=== PATIENT | male | born 1950 | race Caucasian/White ===

== ENCOUNTER → 2016-11-06 | Outpatient (REF) | payer OTHER ==
[~2016-11-06] MED LIST: /ATOR40TA OR; /DOXA1TA OR; DOXAZOSIN PO; HYDR25TA6 OR; LATANOPROST 0.005% OU; LISI20TA5 OR; TIMOPTIC 0.5% OU; TIMOPTIC OU; VERA120T OR; XALATAN OU
[2016-11-06 18:33] LABS: ALBUMIN 4.1 GM/DL (3.2-5.2); ALBUMIN/GLOBULIN RATIO 1.24 (1.00-1.93); ALKALINE PHOSPHATASE 67 U/L (45-117); ALT/SGPT 53 U/L (12-78); ANION GAP 9 MEQ/L (8-16); AST/SGOT 24 U/L (15-37); BILIRUBIN,TOTAL 0.4 MG/DL (0.2-1.0); BLOOD UREA NITROGEN 22 MG/DL (7-18); CALCIUM LEVEL 8.8 MG/DL (8.8-10.2); CARBON DIOXIDE LEVEL 25 MEQ/L (21-32); CHLORIDE LEVEL 104 MEQ/L (98-107); CHOLESTEROL LEVEL 244 MG/DL (<200); CREATININE FOR GFR 0.73 MG/DL (0.70-1.30); GLOMERULAR FILTRATION RATE > 60.0 (>49); GLUCOSE, FASTING 171 MG/DL (80-110); POTASSIUM SERUM 4.6 MEQ/L (3.5-5.1); SODIUM LEVEL 138 MEQ/L (136-145); TOTAL PROTEIN 7.4 GM/DL (6.4-8.2); TRIGLYCERIDES LEVEL 386 MG/DL (<150)
== END ==
LOC: M SFHCCLAY 09:40
PROVIDERS: ATTEND Family Medicine
DX: E11.9 Type 2 diabetes mellitus without complications (principal); E78.2 Mixed hyperlipidemia

== ENCOUNTER → 2017-01-03 | Outpatient (REF) | payer OTHER | LOC: M LAB REF 09:26 | PROVIDERS: ATTEND Physician Assistant | DX: N39.0 Urinary tract infection, site not specified (principal) ==

== ENCOUNTER → 2017-02-11 | Outpatient (REF) | payer OTHER ==
[2017-02-11 17:54] LABS: ANION GAP 7 MEQ/L (8-16); BLOOD UREA NITROGEN 14 MG/DL (7-18); CALCIUM LEVEL 9.4 MG/DL (8.8-10.2); CARBON DIOXIDE LEVEL 27 MEQ/L (21-32); CHLORIDE LEVEL 106 MEQ/L (98-107); CREATININE FOR GFR 0.78 MG/DL (0.70-1.30); GLOMERULAR FILTRATION RATE > 60.0 (>49); GLUCOSE, FASTING 130 MG/DL (80-110); SODIUM LEVEL 140 MEQ/L (136-145)
== END ==
LOC: M SFHCCLAY 10:45
PROVIDERS: ATTEND Family Medicine
DX: E11.9 Type 2 diabetes mellitus without complications (principal)

== ENCOUNTER → 2017-03-28 | Outpatient (CLI) | payer MEDICARE, BC, OTHER ==
--- NOTE | 2017-03-28 11:05 | REP ---
ABDOMEN, FLAT AND UPRIGHT; PA CHEST, FOUR VIEWS: HISTORY: Left lower quadrant pain. A small amount of air is present in small and large intestine. There are no air fluid levels or dilated loops of intestine. There is no pneumoperitoneum. A mild amount of stool is present in the colon. The lungs are clear. IMPRESSION: 1. Nonspecific bowel gas pattern. 2. There is a mild amount of stool in the colon. Signed by Quinton Dhillon MD 03/28/2017 11:09 A
[2017-03-28 18:14] LABS: MICROSCOPIC INDICATED? MAN NO (NO)
[2017-03-28 18:15] LABS: BASO % 0.3 % (0.0-1.0); EOS # 0.1 10^3/uL (0.0-0.50); EOS % 1.4 % (0.0-3.0); IMMATURE GRANULOCYTE % 0.5 % (0-0); LYMPH # 2.7 10^3/uL (1.5-4.5); LYMPH % 35.4 % (24.0-44.0); MEAN CORPUSCULAR HEMOGLOBIN 31.1 pg (27.0-33.0); MEAN CORPUSCULAR HGB CONC 33.6 g/dl (32.0-36.5); MEAN CORPUSCULAR VOLUME 92.5 fl (80.0-96.0); MONO # 0.8 10^3/uL (0.0-0.8); MONO % 9.9 % (0.0-5.0); NEUTROPHILS % 52.5 % (36.0-66.0); PLATELET COUNT, AUTOMATED 166 10^3/uL (150-450); RED CELL DISTRIBUTION WIDTH 13.9 % (11.5-14.5); WHITE BLOOD COUNT 7.7 10^3/uL (4.0-10.0)
[2017-03-28 18:19] LABS: ADD MORPHOLOGY? NO
[2017-03-28 18:30] LABS: ALBUMIN 4.1 GM/DL (3.2-5.2); ALBUMIN/GLOBULIN RATIO 1.32 (1.00-1.93); ALKALINE PHOSPHATASE 62 U/L (45-117); ALT/SGPT 63 U/L (12-78); ANION GAP 7 MEQ/L (8-16); AST/SGOT 33 U/L (15-37); BILIRUBIN,TOTAL 0.3 MG/DL (0.2-1.0); BLOOD UREA NITROGEN 15 MG/DL (7-18); CALCIUM LEVEL 9.5 MG/DL (8.8-10.2); CARBON DIOXIDE LEVEL 27 MEQ/L (21-32); CHLORIDE LEVEL 103 MEQ/L (98-107); CREATININE FOR GFR 0.67 MG/DL (0.70-1.30); GLOMERULAR FILTRATION RATE > 60.0 (>49); GLUCOSE, FASTING 167 MG/DL (80-110); POTASSIUM SERUM 4.6 MEQ/L (3.5-5.1); SODIUM LEVEL 137 MEQ/L (136-145); TOTAL PROTEIN 7.2 GM/DL (6.4-8.2)
== END ==
LOC: M WUC 10:22
PROVIDERS: ATTEND Physician Assistant
DX: R10.32 Left lower quadrant pain (principal)

== ENCOUNTER → 2017-03-29 | Outpatient (CLI) | payer MEDICARE, BC, OTHER ==
[~2017-03-29] MED LIST changes: +GASTROGRAFIN SOLUTION 30ML (Q9963) As Ordered ONE; +ISOVUE-370 76% 100ML VIAL (Q9967) As Ordered ONE
--- NOTE | 2017-03-29 12:56 | REP ---
CT of the abdomen and pelvis with IV and bowel contrast: There are no comparisons. The visualized lung roque are unremarkable. The hepatic parenchyma is diffusely hypodense compatible with hepato steatosis but is otherwise unremarkable. The gallbladder, pancreas and spleen are unremarkable except for a calcified granuloma in the spleen. The adrenals and kidneys are unremarkable except for small adrenal cortical cysts. The abdominal aorta is unremarkable except for calcified atheroma. There is no bowel distension. Mesentery is unremarkable. Pelvis: There is no diverticulosis or diverticulitis. However, there is wall thickening of the sigmoid colon. This is nonspecific and could be artifact from under distension could be evidence for colitis in the appropriate clinical setting. There is no ascites or adenopathy. The appendix is unremarkable. The bladder is unremarkable. Impression: There is no diverticulosis or diverticulitis. However, there is wall thickening of the sigmoid colon, nonspecific: artifact from under distension versus colitis in the appropriate clinical setting. No ascites, adenopathy, bowel distension or obstruction. Signed by Amaury Gabriel MD 03/29/2017 12:48 P
== END ==
LOC: M RAD 10:59
PROVIDERS: ATTEND Physician Assistant
DX: R10.32 Left lower quadrant pain (principal)
CPT/HCPCS: 74177; Q9963; Q9967

== ENCOUNTER → 2017-05-17 | Outpatient (REF) | payer MEDICARE, OTHER ==
[~2017-05-17] MED LIST changes: -GASTROGRAFIN SOLUTION 30ML (Q9963) As Ordered ONE; -ISOVUE-370 76% 100ML VIAL (Q9967) As Ordered ONE
[2017-05-17 16:39] LABS: ANION GAP 7 MEQ/L (8-16); BLOOD UREA NITROGEN 19 MG/DL (7-18); CALCIUM LEVEL 9.5 MG/DL (8.8-10.2); CARBON DIOXIDE LEVEL 27 MEQ/L (21-32); CHLORIDE LEVEL 104 MEQ/L (98-107); CREATININE FOR GFR 0.73 MG/DL (0.70-1.30); GLOMERULAR FILTRATION RATE > 60.0 (>49); GLUCOSE, FASTING 182 MG/DL (80-110); POTASSIUM SERUM 4.5 MEQ/L (3.5-5.1); SODIUM LEVEL 138 MEQ/L (136-145)
== END ==
LOC: M SFHCCLAY 11:05
PROVIDERS: ATTEND Family Medicine
DX: E11.9 Type 2 diabetes mellitus without complications (principal); Z23 Encounter for immunization
CPT/HCPCS: 80048; 83036; 90662; 90670; G0008; G0009; G0463

== ENCOUNTER → 2017-06-24 | Outpatient (REF) | payer MEDICARE, OTHER ==
[2017-06-24 18:32] LABS: ANION GAP 8 MEQ/L (8-16); BLOOD UREA NITROGEN 17 MG/DL (7-18); CALCIUM LEVEL 8.7 MG/DL (8.8-10.2); CARBON DIOXIDE LEVEL 25 MEQ/L (21-32); CHLORIDE LEVEL 106 MEQ/L (98-107); CREATININE FOR GFR 0.75 MG/DL (0.70-1.30); GLOMERULAR FILTRATION RATE > 60.0 (>49); GLUCOSE, FASTING 195 MG/DL (80-110); POTASSIUM SERUM 4.8 MEQ/L (3.5-5.1); SODIUM LEVEL 139 MEQ/L (136-145)
== END ==
LOC: M SFHCCLAY 11:04
DX: I10 Essential (primary) hypertension (principal)

== ENCOUNTER → 2017-06-24 | Outpatient (REF) | payer MEDICARE, OTHER ==
[2017-06-24 18:37] LABS: ESTIMATED AVERAGE GLUCOSE 186 MG/DL (60-110)
== END ==
LOC: M LABDRAWC 17:29
DX: M19.071 Primary osteoarthritis, right ankle and foot (principal); I10 Essential (primary) hypertension; Z79.899 Other long term (current) drug therapy
CPT/HCPCS: 83036

== ENCOUNTER → 2017-07-13 | Outpatient (REF) | payer MEDICARE, OTHER ==
[2017-07-13 13:28] LABS: ESTIMATED AVERAGE GLUCOSE 180 MG/DL (60-110); HEMOGLOBIN A1c 7.9 %
== END ==
LOC: M LABDRAW1 10:39
DX: M19.071 Primary osteoarthritis, right ankle and foot (principal); E11.9 Type 2 diabetes mellitus without complications
CPT/HCPCS: 83036

== ENCOUNTER → 2017-08-20 | Outpatient (REF) | payer MEDICARE, OTHER ==
[2017-08-20 17:05] LABS: ANION GAP 9 MEQ/L (8-16); BLOOD UREA NITROGEN 15 MG/DL (7-18); CALCIUM LEVEL 9.6 MG/DL (8.8-10.2); CARBON DIOXIDE LEVEL 27 MEQ/L (21-32); CHLORIDE LEVEL 104 MEQ/L (98-107); CREATININE FOR GFR 0.75 MG/DL (0.70-1.30); GLOMERULAR FILTRATION RATE > 60.0 (>49); GLUCOSE, FASTING 112 MG/DL (70-100); POTASSIUM SERUM 4.8 MEQ/L (3.5-5.1); SODIUM LEVEL 140 MEQ/L (136-145)
[2017-08-20 17:19] LABS: ESTIMATED AVERAGE GLUCOSE 160 MG/DL (60-110); HEMOGLOBIN A1c 7.2 %
== END ==
LOC: M SFHCCLAY 10:48
DX: E11.9 Type 2 diabetes mellitus without complications (principal)
CPT/HCPCS: 83036

== ENCOUNTER → 2017-11-18 | Outpatient (REF) | payer MEDICARE, OTHER ==
[2017-11-18 12:31] LABS: ALBUMIN 4.1 GM/DL (3.2-5.2); ALBUMIN/GLOBULIN RATIO 1.21 (1.00-1.93); ALKALINE PHOSPHATASE 73 U/L (45-117); ALT/SGPT 79 U/L (12-78); ANION GAP 8 MEQ/L (8-16); AST/SGOT 36 U/L (7-37); BILIRUBIN,TOTAL 0.3 MG/DL (0.2-1.0); BLOOD UREA NITROGEN 13 MG/DL (7-18); CALCIUM LEVEL 9.5 MG/DL (8.8-10.2); CARBON DIOXIDE LEVEL 27 MEQ/L (21-32); CHLORIDE LEVEL 107 MEQ/L (98-107); CHOLESTEROL LEVEL 203 MG/DL (<200); CHOLESTEROL RISK RATIO 4.319 (<5); CREATININE FOR GFR 0.74 MG/DL (0.70-1.30); GLOMERULAR FILTRATION RATE > 60.0 (>49); GLUCOSE, FASTING 102 MG/DL (70-100); HDL CHOLESTEROL 47 MG/DL (>40); NON-HDL-C 156 MG/DL; SODIUM LEVEL 142 MEQ/L (136-145); TOTAL PROTEIN 7.5 GM/DL (6.4-8.2); TRIGLYCERIDES LEVEL 521 MG/DL (<150)
[2017-11-18 12:41] LABS: CREATININE, URINE 96.3 MG/DL; MALB URINE SIEMENS 86.3 MG/L; MAU/CREAT RATIO 89.6 MCG/MG (0.0-30.0)
[2017-11-18 12:43] LABS: POTASSIUM SERUM 5.2 MEQ/L (3.5-5.1)
[2017-11-18 13:06] LABS: ESTIMATED AVERAGE GLUCOSE 137 MG/DL (60-110); HEMOGLOBIN A1c 6.4 %
== END ==
LOC: M SFHCCLAY 09:43
DX: E11.9 Type 2 diabetes mellitus without complications (principal); E78.2 Mixed hyperlipidemia
CPT/HCPCS: 80053

== ENCOUNTER → 2018-03-03 | Outpatient (REF) | payer MEDICARE, OTHER ==
[2018-03-03 17:50] LABS: ANION GAP 10 MEQ/L (8-16); BLOOD UREA NITROGEN 12 MG/DL (7-18); CALCIUM LEVEL 9.3 MG/DL (8.8-10.2); CARBON DIOXIDE LEVEL 23 MEQ/L (21-32); CHLORIDE LEVEL 110 MEQ/L (98-107); CREATININE FOR GFR 0.76 MG/DL (0.70-1.30); GLOMERULAR FILTRATION RATE > 60.0 (>49); GLUCOSE, FASTING 99 MG/DL (70-100); POTASSIUM SERUM 4.4 MEQ/L (3.5-5.1); SODIUM LEVEL 143 MEQ/L (136-145)
[2018-03-03 17:51] LABS: ESTIMATED AVERAGE GLUCOSE 108 MG/DL (60-110); HEMOGLOBIN A1c 5.4 %
== END ==
LOC: M SFHCCLAY 10:42
DX: E11.29 Type 2 diabetes mellitus with other diabetic kidney complication (principal); R80.9 Proteinuria, unspecified
CPT/HCPCS: 83036

== ENCOUNTER → 2018-03-22 | Outpatient (CLI) | payer BC, MEDICARE, OTHER ==
[2018-03-22 10:10] LABS: HEMATOCRIT 45.6 % (42.0-52.0); HEMOGLOBIN 15.8 g/dl (13.5-17.5); MEAN CORPUSCULAR HEMOGLOBIN 31.6 pg (27.0-33.0); MEAN CORPUSCULAR HGB CONC 34.6 g/dl (32.0-36.5); MEAN CORPUSCULAR VOLUME 91.2 fl (80.0-96.0); PLATELET COUNT, AUTOMATED 170 10^3/uL (150-450); RED CELL DISTRIBUTION WIDTH 13.6 % (11.5-14.5); WHITE BLOOD COUNT 7.6 10^3/uL (4.0-10.0)
[2018-03-22 10:20] LABS: INR 0.91; PROTHROMBIN TIME 12.4 SECONDS (12.1-14.4)
[2018-03-22 10:45] LABS: ALBUMIN 3.9 GM/DL (3.2-5.2); ALBUMIN/GLOBULIN RATIO 1.26 (1.00-1.93); ALKALINE PHOSPHATASE 52 U/L (45-117); ALT/SGPT 36 U/L (12-78); ANION GAP 9 MEQ/L (8-16); AST/SGOT 19 U/L (7-37); BILIRUBIN,TOTAL 0.3 MG/DL (0.2-1.0); BLOOD UREA NITROGEN 17 MG/DL (7-18); CALCIUM LEVEL 9.4 MG/DL (8.8-10.2); CARBON DIOXIDE LEVEL 24 MEQ/L (21-32); CHLORIDE LEVEL 109 MEQ/L (98-107); CREATININE FOR GFR 0.65 MG/DL (0.70-1.30); GLOMERULAR FILTRATION RATE > 60.0 (>49); GLUCOSE, FASTING 115 MG/DL (70-100); POTASSIUM SERUM 4.8 MEQ/L (3.5-5.1); SODIUM LEVEL 142 MEQ/L (136-145)
[2018-03-22 10:50] LABS: ERYTHROCYTE SEDIMENTATION RATE 13 mm/hr (0-20)
== END ==
LOC: M LAB 09:33
DX: Z01.818 Encounter for other preprocedural examination (principal); M19.071 Primary osteoarthritis, right ankle and foot; I10 Essential (primary) hypertension; E11.9 Type 2 diabetes mellitus without complications; I42.9 Cardiomyopathy, unspecified
CPT/HCPCS: 71046

== ENCOUNTER 2018-03-28 05:41 | Inpatient (IN) | payer MEDICARE, BC, OTHER ==
[2018-03-28 06:21] LABS: GLUCOSE, FASTING 145 MG/DL (70-100)
[2018-03-28] MEDS: LR 1,000 ML IV ×3 (06:30→15:15)
[2018-03-28] MEDS ORDERED: fentaNYL 100 MCG/2 ML INJECTION (J3010) As Ordered ×3 (07:00→12:42)
[2018-03-28] MEDS ORDERED: MIDAZOLAM INJ 2 MG/2 ML VIAL (J2250) As Ordered ×2 (07:00→07:19)
[2018-03-28] MEDS ORDERED: ROCURONIUM BROMIDE 50 MG/5 ML VIAL As Ordered ×2 (07:17→08:17)
[2018-03-28] MEDS ORDERED: LIDOCAINE 2% INJ 100 MG/5 ML SDV (FOR ANES.) As Ordered (07:17)
[2018-03-28] MEDS ORDERED: PROPOFOL 200 MG/20 ML VIAL As Ordered (07:17)
[2018-03-28] MEDS ORDERED: fentaNYL 250 MCG/5 ML INJECTION (J3010) As Ordered (07:18)
[2018-03-28] MEDS: MIDAZOLAM INJ 2 MG/2 ML VIAL (J2250) IV (07:20)
[2018-03-28] MEDS: fentaNYL 100 MCG/2 ML INJECTION (J3010) IV (07:20)
[2018-03-28] MEDS ORDERED: PHENYLephrine HCL 500 MCG/5 ML (100MCG/ML) SYRINGE (J2370) As Ordered ×2 (08:25→08:35)
[2018-03-28] MEDS ORDERED: ePHEDrine SULFATE 25 MG/5 ML(5MG/ML) SYRINGE As Ordered (08:25)
[2018-03-28] MEDS ORDERED: PHENYLEPHRINE INJ 10MG/ML VIAL (J2370) As Ordered (09:23)
[2018-03-28] MEDS ORDERED: GLYCOPYRROLATE INJ 0.2 MG/ML 2 ML VIAL As Ordered (11:29)
[2018-03-28] MEDS ORDERED: NEOSTIGMINE 10 MG/10 ML VIAL (J2710) As Ordered (11:29)
[2018-03-28] MEDS ORDERED: ONDANSETRON 4MG/2ML VIAL (J2405) As Ordered (11:30)
[2018-03-28] MEDS ORDERED: METOCLOPRAMIDE INJ 10MG/2ML VIAL (J2765) As Ordered (11:30)
[2018-03-28] MEDS ORDERED: KETOROLAC 60 MG/2 ML VIAL (J1885) As Ordered (11:30)
[2018-03-28] MEDS: ceFAZolin 2 GM/D5W 50 ML IV BAG (J0690 PER 500MG) As Ordered (12:30)
[2018-03-28] MEDS ORDERED: NORCO, ANEXSIA 5/325MG TABLET (HYDROcodone/ACETAMINOPHEN) As Ordered (14:42)
[2018-03-28] MEDS: NORCO, ANEXSIA 5/325MG TABLET (HYDROcodone/ACETAMINOPHEN) PO (14:45)
[2018-03-28] MEDS ORDERED: oxyCODONE 5MG TAB PO (15:00)
[2018-03-28] MEDS ORDERED: FLEET ENEMA PR (15:00)
[2018-03-28] MEDS ORDERED: ONDANSETRON 4MG/2ML VIAL (J2405) IV (15:00)
[2018-03-28] MEDS ORDERED: fentaNYL 100 MCG/2 ML INJECTION (J3010) IV (15:00)
[2018-03-28] MEDS ORDERED: GLUCAGON FOR INJ 1 MG VIAL (J1610) SC (15:30)
[2018-03-28] MEDS ORDERED: GLUCOSE 4 GM CHEW TABLET PO (15:30)
[2018-03-28] MEDS ORDERED: DEXTROSE 50% 50 ML SYRINGE IV (15:30)
[2018-03-28] MEDS: HumaLOG INSULIN (NovoLOG) PER UNIT SC (17:30)
[2018-03-28] MEDS: oxyCODONE 5MG TAB PO ×2 (18:00→22:49)
[2018-03-28] MEDS: CHLORASEPTIC SPRAY MT (18:40)
[2018-03-28] MEDS: ATORVASTATIN 20 MG TAB PO (21:44)
[2018-03-28] MEDS: ACETAMINOPHEN 500 MG TAB PO (21:45)
[2018-03-28] MEDS: SENOKOT S TAB PO (21:46)
[2018-03-28] MEDS: LATANOPROST 0.005% OPHTH SOLN 2.5 ML OU (21:46)
[2018-03-28] MEDS: VERAPAMIL 120 MG SR TAB PO (21:46)
[2018-03-29] MEDS: LR 1,000 ML IV ×2 (01:15→11:15)
[2018-03-29 02:45] LABS: BEDSIDE GLUCOSE 104 MG/DL (80-115)
[2018-03-29 02:45] LABS: BEDSIDE GLUCOSE 114 MG/DL (80-115)
[2018-03-29] MEDS: ACETAMINOPHEN 500 MG TAB PO ×3 (05:08→21:35)
[2018-03-29] MEDS: oxyCODONE 5MG TAB PO ×4 (05:09→21:37)
[2018-03-29 07:04] LABS: HEMATOCRIT 39.1 % (42.0-52.0); HEMOGLOBIN 13.4 g/dl (13.5-17.5); MEAN CORPUSCULAR HEMOGLOBIN 31.3 pg (27.0-33.0); MEAN CORPUSCULAR HGB CONC 34.3 g/dl (32.0-36.5); MEAN CORPUSCULAR VOLUME 91.4 fl (80.0-96.0); PLATELET COUNT, AUTOMATED 151 10^3/uL (150-450); RED BLOOD COUNT 4.28 10^6/uL (4.30-6.10); RED CELL DISTRIBUTION WIDTH 13.5 % (11.5-14.5); WHITE BLOOD COUNT 12.3 10^3/uL (4.0-10.0)
[2018-03-29 07:23] LABS: ANION GAP 8 MEQ/L (8-16); BLOOD UREA NITROGEN 19 MG/DL (7-18); CALCIUM LEVEL 8.4 MG/DL (8.8-10.2); CARBON DIOXIDE LEVEL 23 MEQ/L (21-32); CHLORIDE LEVEL 106 MEQ/L (98-107); CREATININE FOR GFR 0.96 MG/DL (0.70-1.30); GLOMERULAR FILTRATION RATE > 60.0 (>49); GLUCOSE, FASTING 132 MG/DL (70-100); MAGNESIUM LEVEL 1.6 MG/DL (1.8-2.4); POTASSIUM SERUM 4.4 MEQ/L (3.5-5.1); SODIUM LEVEL 137 MEQ/L (136-145)
[2018-03-29] MEDS: HumaLOG INSULIN (NovoLOG) PER UNIT SC ×3 (07:30→17:08)
[2018-03-29] MEDS: VERAPAMIL 120 MG SR TAB PO ×2 (08:26→21:36)
[2018-03-29] MEDS: TIMOLOL MALEATE 0.5% OPHTH SOLN 5 ML OU (08:27)
[2018-03-29] MEDS: LORATADINE 10 MG TAB PO (08:27)
[2018-03-29] MEDS: diphenhydrAMINE 25 MG CAP PO (08:28)
[2018-03-29] MEDS: SENOKOT S TAB PO ×2 (08:28→21:35)
[2018-03-29 12:02] LABS: BEDSIDE GLUCOSE 143 MG/DL (80-115)
[2018-03-29] MEDS: RIVAROXABAN 10 MG TAB (XARELTO) PO (17:09)
[2018-03-29] MEDS: ATORVASTATIN 20 MG TAB PO (21:36)
[2018-03-29] MEDS: LATANOPROST 0.005% OPHTH SOLN 2.5 ML OU (21:36)
[2018-03-29] MEDS: MORPHINE 4 MG/ML 1ML VIAL/SYRINGE (J2270) IV (23:53)
[2018-03-30] MEDS: oxyCODONE 5MG TAB PO ×5 (02:07→21:15)
[2018-03-30 03:08] LABS: BEDSIDE GLUCOSE 125 MG/DL (80-115)
[2018-03-30] MEDS: ACETAMINOPHEN 500 MG TAB PO ×3 (05:25→21:16)
[2018-03-30 06:01] LABS: HEMATOCRIT 40.5 % (42.0-52.0); HEMOGLOBIN 13.7 g/dl (13.5-17.5); MEAN CORPUSCULAR HGB CONC 33.8 g/dl (32.0-36.5); MEAN CORPUSCULAR VOLUME 91.6 fl (80.0-96.0); PLATELET COUNT, AUTOMATED 147 10^3/uL (150-450); RED BLOOD COUNT 4.42 10^6/uL (4.30-6.10); RED CELL DISTRIBUTION WIDTH 13.2 % (11.5-14.5); WHITE BLOOD COUNT 11.3 10^3/uL (4.0-10.0)
[2018-03-30 06:27] LABS: ANION GAP 8 MEQ/L (8-16); BLOOD UREA NITROGEN 13 MG/DL (7-18); CALCIUM LEVEL 8.9 MG/DL (8.8-10.2); CARBON DIOXIDE LEVEL 26 MEQ/L (21-32); CHLORIDE LEVEL 105 MEQ/L (98-107); CREATININE FOR GFR 0.75 MG/DL (0.70-1.30); GLOMERULAR FILTRATION RATE > 60.0 (>49); GLUCOSE, FASTING 147 MG/DL (70-100); MAGNESIUM LEVEL 1.8 MG/DL (1.8-2.4); POTASSIUM SERUM 4.1 MEQ/L (3.5-5.1); SODIUM LEVEL 139 MEQ/L (136-145)
[2018-03-30] MEDS: HumaLOG INSULIN (NovoLOG) PER UNIT SC ×3 (07:30→17:30)
[2018-03-30] MEDS ORDERED: oxyCODONE 5MG TAB PO ×2 (08:30)
[2018-03-30] MEDS: LISINOPRIL 20 MG TAB PO (09:00)
[2018-03-30] MEDS: LORATADINE 10 MG TAB PO (09:31)
[2018-03-30] MEDS: VERAPAMIL 120 MG SR TAB PO ×2 (09:31→21:16)
[2018-03-30] MEDS: SENOKOT S TAB PO ×2 (09:31→21:15)
[2018-03-30] MEDS: TIMOLOL MALEATE 0.5% OPHTH SOLN 5 ML OU (09:32)
[2018-03-30 11:47] LABS: BEDSIDE GLUCOSE 156 MG/DL (80-115)
[2018-03-30 11:47] LABS: BEDSIDE GLUCOSE 148 MG/DL (80-115)
[2018-03-30] MEDS: RIVAROXABAN 10 MG TAB (XARELTO) PO (17:41)
[2018-03-30] MEDS: ATORVASTATIN 20 MG TAB PO (21:15)
[2018-03-30] MEDS: LATANOPROST 0.005% OPHTH SOLN 2.5 ML OU (21:16)
[2018-03-31] MEDS: oxyCODONE 5MG TAB PO ×2 (03:15→09:47)
[2018-03-31] MEDS: ACETAMINOPHEN 500 MG TAB PO (05:58)
[2018-03-31 06:41] LABS: HEMATOCRIT 40.1 % (42.0-52.0); HEMOGLOBIN 13.7 g/dl (13.5-17.5); MEAN CORPUSCULAR HEMOGLOBIN 31.5 pg (27.0-33.0); MEAN CORPUSCULAR HGB CONC 34.2 g/dl (32.0-36.5); MEAN CORPUSCULAR VOLUME 92.2 fl (80.0-96.0); PLATELET COUNT, AUTOMATED 142 10^3/uL (150-450); RED BLOOD COUNT 4.35 10^6/uL (4.30-6.10); RED CELL DISTRIBUTION WIDTH 13.2 % (11.5-14.5); WHITE BLOOD COUNT 9.3 10^3/uL (4.0-10.0)
[2018-03-31 06:58] LABS: ANION GAP 8 MEQ/L (8-16); BLOOD UREA NITROGEN 12 MG/DL (7-18); CALCIUM LEVEL 8.9 MG/DL (8.8-10.2); CARBON DIOXIDE LEVEL 27 MEQ/L (21-32); CHLORIDE LEVEL 103 MEQ/L (98-107); GLOMERULAR FILTRATION RATE > 60.0 (>49); GLUCOSE, FASTING 124 MG/DL (70-100); POTASSIUM SERUM 4.2 MEQ/L (3.5-5.1); SODIUM LEVEL 138 MEQ/L (136-145)
[2018-03-31] MEDS: HumaLOG INSULIN (NovoLOG) PER UNIT SC ×2 (07:30→12:00)
[2018-03-31] MEDS: LISINOPRIL 20 MG TAB PO (08:43)
[2018-03-31] MEDS: LORATADINE 10 MG TAB PO (08:44)
[2018-03-31] MEDS: VERAPAMIL 120 MG SR TAB PO (08:44)
[2018-03-31] MEDS: TIMOLOL MALEATE 0.5% OPHTH SOLN 5 ML OU (08:45)
[2018-03-31] MEDS: SENOKOT S TAB PO (08:45)
[2018-03-31 21:58] LABS: BEDSIDE GLUCOSE 143 MG/DL (80-115)
[2018-03-31 21:58] LABS: BEDSIDE GLUCOSE 120 MG/DL (80-115)
[2018-03-31 21:59] LABS: BEDSIDE GLUCOSE 118 MG/DL (80-115)
== END 2018-03-31 13:20 | disposition home or self-care (01) | DRG 469 ==
LOC: M OR 05:41 → M MS5PR 15:25
PROVIDERS: Orthopaedic Surgery
PROC: 0SRF0JA Replacement of Right Ankle Joint with Synthetic Substitute, Uncemented, Open Approach (ICD-10-PCS; principal; 2018-03-28 07:30)
DX: M19.071 Primary osteoarthritis, right ankle and foot (principal); I49.01 Ventricular fibrillation; E11.9 Type 2 diabetes mellitus without complications; E78.5 Hyperlipidemia, unspecified; H40.9 Unspecified glaucoma; N40.0 Benign prostatic hyperplasia without lower urinary tract symptoms; G47.33 Obstructive sleep apnea (adult) (pediatric); Z88.1 Allergy status to other antibiotic agents; Z79.84 Long term (current) use of oral hypoglycemic drugs

== ENCOUNTER → 2018-07-18 | Outpatient (REF) | payer MEDICARE, OTHER ==
[~2018-07-18] MED LIST changes: +FINA5TAB2 PO; +ISTA0.5S OU; +JANU50TA8 PO; +LORA-243 PO; +NAPR250T4 PO; +OXYC-517 PO; +XALA0.007 OU; +XARE10TA PO
[2018-07-18 17:17] LABS: ALBUMIN 3.6 GM/DL (3.2-5.2); ALT/SGPT 34 U/L (12-78); BILIRUBIN,TOTAL 0.3 MG/DL (0.2-1.0); BLOOD UREA NITROGEN 13 MG/DL (7-18); CALCIUM LEVEL 9.2 MG/DL (8.8-10.2); CARBON DIOXIDE LEVEL 23 MEQ/L (21-32); CHLORIDE LEVEL 105 MEQ/L (98-107); CHOLESTEROL LEVEL 185 MG/DL (<200); CHOLESTEROL RISK RATIO 3.557 (<5); CREATININE FOR GFR 0.83 MG/DL (0.70-1.30); GLOMERULAR FILTRATION RATE > 60.0 (>49); GLUCOSE, FASTING 132 MG/DL (70-100); HDL CHOLESTEROL 52 MG/DL (>40); LDL CHOLESTEROL 76 MG/DL (<100); NON-HDL-C 133 MG/DL; POTASSIUM SERUM 4.5 MEQ/L (3.5-5.1); SODIUM LEVEL 138 MEQ/L (136-145); TRIGLYCERIDES LEVEL 286 MG/DL (<150)
[2018-07-18 17:28] LABS: HEMOGLOBIN A1c 6.2 %
== END ==
LOC: M SFHCCLAY 09:16
PROVIDERS: ATTEND Family Medicine
DX: E11.29 Type 2 diabetes mellitus with other diabetic kidney complication (principal)
CPT/HCPCS: 80053; 80061; 83036; 90682; 90732; G0008; G0009; G0463

== ENCOUNTER → 2018-09-21 | Outpatient (REF) | payer MEDICARE, OTHER | LOC: M SFHCCLAY 11:35 | PROVIDERS: ATTEND Family Medicine | DX: R35.0 Frequency of micturition (principal) ==

== ENCOUNTER → 2018-11-15 | Outpatient (REF) | payer MEDICARE, OTHER ==
[~2018-11-15] MED LIST changes: -/ATOR40TA OR; -/DOXA1TA OR; +CARD1TAB4 OR; +LIPI1TAB2 OR
[2018-11-15 17:12] LABS: ALBUMIN 3.9 GM/DL (3.2-5.2); ALT/SGPT 60 U/L (12-78); BILIRUBIN,TOTAL 0.5 MG/DL (0.2-1.0); BLOOD UREA NITROGEN 17 MG/DL (7-18); CALCIUM LEVEL 9.3 MG/DL (8.8-10.2); CARBON DIOXIDE LEVEL 29 MEQ/L (21-32); CHLORIDE LEVEL 105 MEQ/L (98-107); CREATININE FOR GFR 0.78 MG/DL (0.70-1.30); GLOMERULAR FILTRATION RATE > 60.0 (>49); GLUCOSE, FASTING 117 MG/DL (70-100); POTASSIUM SERUM 4.6 MEQ/L (3.5-5.1); SODIUM LEVEL 141 MEQ/L (136-145); TOTAL PROTEIN 7.9 GM/DL (6.4-8.2)
[2018-11-15 19:36] LABS: HEMOGLOBIN A1c 6.3 %
== END ==
LOC: M SFHCCLAY 09:55
PROVIDERS: ATTEND Family Medicine
DX: E11.29 Type 2 diabetes mellitus with other diabetic kidney complication (principal)
CPT/HCPCS: 80053; 83036; G0463

== ENCOUNTER → 2019-03-10 | Outpatient (REF) | payer MEDICARE, OTHER ==
[2019-03-10 11:43] LABS: ALBUMIN 3.8 GM/DL (3.2-5.2); ALT/SGPT 42 U/L (12-78); BILIRUBIN,TOTAL 0.3 MG/DL (0.2-1.0); BLOOD UREA NITROGEN 22 MG/DL (7-18); CALCIUM LEVEL 9.6 MG/DL (8.8-10.2); CARBON DIOXIDE LEVEL 24 MEQ/L (21-32); CHLORIDE LEVEL 106 MEQ/L (98-107); CREATININE FOR GFR 0.82 MG/DL (0.70-1.30); GLOMERULAR FILTRATION RATE > 60.0 (>49); GLUCOSE, FASTING 172 MG/DL (70-100); POTASSIUM SERUM 4.6 MEQ/L (3.5-5.1); SODIUM LEVEL 139 MEQ/L (136-145); TOTAL PROTEIN 7.2 GM/DL (6.4-8.2)
[2019-03-10 14:26] LABS: HEMOGLOBIN A1c 6.9 %
== END ==
LOC: M SFHCCLAY 09:11
PROVIDERS: ATTEND Family Medicine
DX: E11.29 Type 2 diabetes mellitus with other diabetic kidney complication (principal)
CPT/HCPCS: 20610; 80053; 83036; G0463; J2920

== ENCOUNTER → 2019-07-13 | Outpatient (REF) | payer MEDICARE, OTHER ==
[2019-07-13 16:45] LABS: HEMOGLOBIN A1c 7.7 %
[2019-07-13 16:48] LABS: ALBUMIN 4.2 GM/DL (3.2-5.2); ALT/SGPT 45 U/L (12-78); BILIRUBIN,TOTAL 0.3 MG/DL (0.2-1.0); BLOOD UREA NITROGEN 14 MG/DL (7-18); CALCIUM LEVEL 9.1 MG/DL (8.8-10.2); CARBON DIOXIDE LEVEL 25 MEQ/L (21-32); CHLORIDE LEVEL 107 MEQ/L (98-107); CHOLESTEROL LEVEL 237 MG/DL (<200); CHOLESTEROL RISK RATIO 4.388 (<5); CREATININE FOR GFR 0.77 MG/DL (0.70-1.30); GLOMERULAR FILTRATION RATE > 60.0 (>49); GLUCOSE, FASTING 150 MG/DL (70-100); HDL CHOLESTEROL 54 MG/DL (>40); NON-HDL-C 183 MG/DL; POTASSIUM SERUM 4.7 MEQ/L (3.5-5.1); SODIUM LEVEL 140 MEQ/L (136-145); TOTAL PROTEIN 7.2 GM/DL (6.4-8.2); TRIGLYCERIDES LEVEL 417 MG/DL (<150)
== END ==
LOC: M SFHCCLAY 13:18
PROVIDERS: ATTEND Family Medicine
DX: E11.29 Type 2 diabetes mellitus with other diabetic kidney complication (principal); E78.2 Mixed hyperlipidemia
CPT/HCPCS: 80053; 80061; 83036; G0463

== ENCOUNTER → 2019-07-21 | Outpatient (REF) | payer MEDICARE, OTHER | LOC: M LAB REF 14:42 | PROVIDERS: ATTEND Dermatology | DX: C44.612 Basal cell carcinoma of skin of right upper limb, including shoulder (principal) | CPT/HCPCS: 11102; 17000; 88305; G0463 ==

== ENCOUNTER → 2019-08-09 | Outpatient (REF) | payer MEDICARE, OTHER | LOC: M LAB REF 08:59 | PROVIDERS: ATTEND Dermatology | DX: D23.61 Other benign neoplasm of skin of right upper limb, including shoulder (principal) ==

== ENCOUNTER 2019-10-28 08:30 | Emergency (ER) | payer MEDICARE, BC, OTHER ==
[~2019-10-28] VITALS: Ht 175.3 cm; Wt 120.8 kg
[2019-10-28] MEDS ORDERED: TOLT4CAP3 PO (08:58)
[2019-10-28] MEDS ORDERED: LATA0.0015 OU (08:58)
[2019-10-28] MEDS ORDERED: METF-838 PO (08:58)
[2019-10-28] MEDS ORDERED: TIMO0.5S29 OU (08:58)
[2019-10-28] MEDS ORDERED: ATOR80TA59 PO (08:58)
[2019-10-28] MEDS ORDERED: NAPR-855 PO (08:58)
[2019-10-28] MEDS ORDERED: FINA5TAB2 PO (08:58)
[2019-10-28] MEDS ORDERED: BACL1TAB9 PO (08:58)
[2019-10-28] MEDS ORDERED: VERA240T3 PO (08:58)
[2019-10-28] MEDS ORDERED: FARX1TAB3 PO (08:58)
[2019-10-28] MEDS ORDERED: ONDANSETRON 4MG/2ML VIAL IV ONE (09:30)
[2019-10-28] MEDS ORDERED: MORPHINE 4 MG/ML 1ML VIAL/SYRINGE (J2270) IV ONE (09:30)
--- NOTE | 2019-10-28 09:47 | REP ---
Clinical: Right-sided pain. Technique: Axial noncontrast images from the lung bases to the pubic symphysis with coronal and sagittal re-formations. Comparison: 03/29/2017 Findings: Kidneys demonstrate moderate chronic symmetric perinephric stranding along with left renal hypodensities compatible with cysts. No hydroureteronephrosis, intrarenal or obstructing ureteral calculi identified. Bilateral ureters and bladder appear normal. Prostate gland is mildly prominent. Mild hepatomegaly suggested. Splenic calcifications suggest prior granulomas disease. Pancreas, gallbladder, and bilateral adrenal glands are normal for noncontrast evaluation. The enteric system is without obstruction or acute inflammatory process. Normal terminal ileum and cecum identified in the right lower quadrant. Further evaluation the pelvis demonstrates small forming left fat containing inguinal hernia. No ascites. No free air. No adenopathy. Atherosclerotic changes to the aorta and vasculature noted without aneurysm. Musculoskeletal structures demonstrate degenerative changes without acute osseous abnormality. Lung bases without acute consolidation or effusion. Impression: 1. No hydronephrosis or nephroureterolithiasis. 2. Left renal cysts up to 3.6 cm. 3. No acute abdominopelvic pathology appreciated. Electronically Signed by Corwin Guzman MD 10/28/2019 09:38 A
--- NOTE | 2019-10-28 09:54 | REP ---
Clinical: Right-sided pain. Technique: Single frontal view of the pelvis. Findings: Generalized age-related changes are appreciated. No acute fracture or dislocation. Impression: Generalized age-related degenerative changes throughout the pelvis and hips. Electronically Signed by Corwin Guzman MD 10/28/2019 09:45 A
--- NOTE | 2019-10-28 09:56 | REP ---
Clinical : Right-sided pain. Technique: AP, lateral, bilateral oblique and coned-down views of the lumbosacral spine. Findings: Alignment and lordosis maintained. No acute fracture / compression injury or subluxation. Advanced multilevel degenerative changes include bridging osteophytosis, endplate sclerosis, disc space narrowing, and hypertrophic facet changes throughout the visualized lower thoracic and lumbosacral spine. Findings are most pronounced at L5-S1, L4-5 and T11-12. Impression: Advanced multilevel degenerative spondylosis. Electronically Signed by Corwin Guzman MD 10/28/2019 09:47 A
[2019-10-28 10:12] LABS: BASO % 0.4 % (0.0-1.0); EOS # 0.1 10^3/uL (0.0-0.5); EOS % 0.6 % (0.0-3.0); HEMATOCRIT 47.5 % (42.0-52.0); HEMOGLOBIN 16.2 g/dl (13.5-17.5); LYMPH # 2.6 10^3/uL (1.5-5.0); LYMPH % 26.5 % (24.0-44.0); MEAN CORPUSCULAR HEMOGLOBIN 31.7 pg (27.0-33.0); MEAN CORPUSCULAR HGB CONC 34.1 g/dl (32.0-36.5); MONO % 10.2 % (0.0-5.0); NEUTROPHILS # 5.9 10^3/uL (1.5-8.5); NEUTROPHILS % 61.8 % (36.0-66.0); PLATELET COUNT, AUTOMATED 159 10^3/uL (150-450); RED BLOOD COUNT 5.11 10^6/uL (4.30-6.10); WHITE BLOOD COUNT 9.6 10^3/uL (4.0-10.0)
[2019-10-28 10:34] LABS: ALT/SGPT 53 U/L (12-78); BILIRUBIN,DIRECT < 0.1 MG/DL (0.0-0.2); BILIRUBIN,TOTAL 0.5 MG/DL (0.2-1.0); LIPASE 237 U/L (73-393); TOTAL PROTEIN 7.3 GM/DL (6.4-8.2)
[2019-10-28] MEDS ORDERED: NORC1TAB7 PO (11:58)
[2019-10-28 12:22] VITALS: BP 126/75
== END 2019-10-28 12:25 | disposition home or self-care (01) ==
LOC: M ED 08:30
DX: M54.30 Sciatica, unspecified side (principal); M47.817 Spondylosis without myelopathy or radiculopathy, lumbosacral region; N28.1 Cyst of kidney, acquired; M16.0 Bilateral primary osteoarthritis of hip; R10.9 Unspecified abdominal pain; M46.1 Sacroiliitis, not elsewhere classified; F32.9 Major depressive disorder, single episode, unspecified; I10 Essential (primary) hypertension; N40.0 Benign prostatic hyperplasia without lower urinary tract symptoms; G47.30 Sleep apnea, unspecified; R51 Headache; E78.00 Pure hypercholesterolemia, unspecified; Z79.899 Other long term (current) drug therapy; Z88.0 Allergy status to penicillin; Z79.84 Long term (current) use of oral hypoglycemic drugs
CPT/HCPCS: 72110; 72170; 74176; 80047; 80076; 81001; 83605; 83690; 85025; 87040; 93041; 96374; 96375; 99284; J2270; J2405

== ENCOUNTER → 2019-11-14 | Outpatient (REF) | payer MEDICARE, OTHER ==
[~2019-11-14] MED LIST changes: +ATOR80TA59 PO; +BACL1TAB9 PO; +FARX1TAB3 PO; +LATA0.0015 OU; +METF-838 PO; +NAPR-855 PO; +NORC1TAB7 PO; +TIMO0.5S29 OU; +TOLT4CAP3 PO; +VERA240T3 PO
== END ==
LOC: M LAB REF 17:11
PROVIDERS: ATTEND Dermatology
DX: D23.4 Other benign neoplasm of skin of scalp and neck (principal)
CPT/HCPCS: 11102; 88305; G0463

== ENCOUNTER → 2020-06-14 | Outpatient (CLI) | payer MEDICARE, BC, OTHER ==
[~2020-06-14] MED LIST changes: +D31000TA2 PO; +LISI-538 PO
== END ==
LOC: M LABSMTC 09:44
PROVIDERS: ATTEND Anesthesiology
DX: Z01.812 Encounter for preprocedural laboratory examination (principal); Z11.59 Encounter for screening for other viral diseases

== ENCOUNTER 2020-06-19 09:45 | Inpatient (IN) | payer MEDICARE, BC, OTHER ==
[~2020-06-19] VITALS: Ht 175.3 cm; Wt 117.9 kg
[~2020-06-19 09:45] MED LIST changes: -LISI-538 PO; +LISI20TA33 PO
--- NOTE | 2020-08-12 12:22 | HPE ---
HISTORY AND PHYSICAL DATE OF ANTICIPATED ADMISSION: 08/20/2020 ATTENDING PHYSICIAN: Katie Tidwell MD. ADMITTING DIAGNOSIS: Osteoarthritis right knee. HISTORY: This is a male patient with progressively worsening right knee pain and stiffness. He has failed to improve with conservative management and he has elected for surgery for his continued symptoms. He has pain with weightbearing activities and activities of daily living. He has been consented by Dr. Tidwell for a total knee arthroplasty on the right side. X-rays of his right knee notable for end-stage degenerative changes of the right knee. Medical optimization with Dr. Zepeda. MEDICAL HISTORY: Includes: 1. Hypertension. 2. Elevated lipids. 3. Glaucoma. 4. Colon polyps. 5. VFib. 6. Benign prostatic hypertrophy. 7. Sleep apnea. SURGICAL HISTORY: Includes: 1. Left ankle ORIF. 2. Right leg venous decompression. 3. Bladder biopsy. 4. Polyps biopsied. 5. Bilateral knee scopes. 6. Bilateral eye surgery. 7. Right ankle replacement. 8. Carpal tunnel release bilaterally. ALLERGIES: 1. AMOXICILLIN. 2. SIMVASTATIN. CURRENT MEDICATIONS: 1. Timolol 0.5% solution, 1 drop in each eye once per day. 2. Fluticasone 50 mcg suspension, 1 spray in each nostril twice a day. 3. Atorvastatin 80 mg, 1 tablet once per day. 4. Baclofen 20 mg, 1 tablet q8h as needed. 5. Vicodin 5/325 p.r.n. for pain. 6. Lisinopril 20 mg, 1 tablet once per day. 7. Finasteride 5 mg, 1 tablet once per day. 8. Metformin extended release 500 mg, 1 tablet once per day. 9. Verapamil extended release 240 mg, 1 tablet once per day. 10. Tolterodine 2 mg, 2 tablets once per day. FAMILY HISTORY: Heart disease, hypertension, pancreatic cancer, melanoma, [place], breast cancer. SOCIAL HISTORY: He does not smoke. He does not use alcohol. He is retired. REVIEW OF SYSTEMS: Denies fever or chills. Denies chest pain, shortness of breath or cough. Denies difficulty breathing. Denies abdominal pain. Denies nausea or vomiting. Has persistent pain with weightbearing activities and activities of daily living in his right knee. Denies exposure to COVID-19. PHYSICAL EXAMINATION: Exam today reveals a well-nourished, well-developed male patient. He walks with a limping gait using a cane; he favors is right side. His gait is not wide based. His mood and affect are appropriate for the situation. He sits comfortably on the exam room table. Exam of the right knee reveals the skin to be intact, no erythema, edema or ecchymosis. The calf is soft and nontender to palpation. There is a well healed pustule in the right groin without gross signs of infection. No streaking erythema, no pain with passive range of motion of the great toe. It is a well perfused right lower extremity. There is trace pitting edema in the right lower extremity. Neck: Supple without adenopathy or JVD. Lungs: Clear to auscultation without rales or wheeze. Heart: Regular rate and rhythm. Current vital signs: Height 69 inches, weight 259 pounds, temperature 97.3, blood pressure 132/80, pulse 78, respirations 14. LABORATORY DATA: WBC count 9.6, RBC count 5.1, hemoglobin 16.2, hematocrit 47.5, ESR 13. PT 12.4. INR 0.91. Sodium 140, potassium 4.7, BUN 14, creatinine 0.77, glucose 150. IMAGING: His chest x-ray and EKG are not present for review. IMPRESSION: Symptomatic osteoarthritis of the right knee. PLAN: He has been consented by Dr. Tidwell for a right total knee arthroplasty. He understands his pre-operative and post-operative instructions. He has had his clearance done by his primary Dr. Zepeda and did not find any reasons he could not go forth with the planned surgery. He has also had medical optimization by Dr. Stvee that is also not present for review today. He has also been seen by the general surgery office that recommended no further treatment in regards to the pustule in his groin, but he did complete a 10 day course of antibiotics prior to the planned surgical procedure at our office. He understands if things change he will call the office. He understands to self quarantine after his COVID testing. We went over once again about no NSAIDs 5 days prior to procedures. He will bring his CPAP with him to the hospital and he understands to be on time for his scheduled appointment. We went over the current COVID restrictions. All of his questions were answered. Katie Tidwell MD
[2020-08-20] MEDS ORDERED: ACETAMINOPHEN 500 MG TAB PO ONE (06:45)
[2020-08-20] MEDS ORDERED: LR 1,000 ML IV ONE (06:45)
[2020-08-20] MEDS ORDERED: VANCOMYCIN HCL 1,000 MG, VIAL MATE ADAPTER 1 EACH in D5W 250 ML IV ONE (06:45)
[2020-08-20] MEDS ORDERED: MIDAZOLAM INJ 2MG/2ML VIAL (J2250 PER 1MG) IV PRN (07:01)
[2020-08-20] MEDS ORDERED: fentaNYL 100 MCG/2 ML INJECTION (J3010) IV PRN ×3 (07:01→15:30)
--- OUTSIDE RECORDS SUMMARY | 2020-08-20 07:02 | CCD ---
Author Author [facility] Organization [facility] Address Unknown Phone Unavailable Care Team Providers Care Border Measurer And Cutter Name Role Phone Raj Zepeda Unavailable PROBLEMS Type Condition ICD9-CM Code [id number] Code Onset Dates Condition S tatus SNOMED Code Notes Problem Hyperlipidemia type III E78.2 Active 60078129 5 Problem Hypertension I10 Active 01659564 Problem Dupuytren's contracture of right hand M72.0 Active 86287904719885514 Problem Diabetes E11.9 Active 94333577 Problem Primary osteoarthritis, 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 71 Active 42783015 Problem Hypertensive heart disease without heart failure I 11.9 Active 09740362 Problem Type 2 diabetes mellitus with other diabetic kid maribell complication E11.29 Active 697769408 Problem Basal cell carcinoma (BCC) of right upper extremity C44.612 Active 410494487 Problem Carpal tunnel syndrome of right wrist G56.01 Ac tive 719513733933568 Problem Lumbar degenerative disc disease M51.36 Active 59721662 Problem Osteoarthritis M19.90 Active 563962477 Problem Sleep apnea in adult G47.33 Active 85263476 Problem Type 2 diabetes mellitus wit h diabetic nephropathy, without long-term current use of insulin E11.21 Active 45815559 Problem Benign prostatic hyperplasia with lower urinary tract symptoms N40.1 Active 255177434 Problem Primary osteoarthritis of both knees M17.0 Act asad 171613099 ALLERGIES Allergen (clinical drug ingredient) Drug/Non Drug Allergy do cumented on EMR Reaction Allergy Type Onset Date Status simvastatin Simvastatin(NDC Code:[address]-46) Myalgia Drug Aller gy Active amoxicillin Amoxicillin(NDC Code:[address]-85) Rash Drug Aller gy Active ENCOUNTERS from 1950 to 2020-07-12 Encounter Location Date Provider Diagnosis [facility] [place] [address] Jun Raj Normanlaine IMMUNIZATIONS Vaccine Route Administration Date Status Influenza (18 yrs & older) Flublok IM Intramuscular Jul 18, 2018 Administered Influenza (High Dose 65 & up) IM Intramuscular May 17, 2017 A dministered Pneumococcal Adult 0.5mL (Pneumovax 23) IM Intramuscular Jul 18, 2018 Administered Pneumococcal 0.5mL (Prevnar 13) IM Intramuscular May 17, 2017 Administered Influenza (6mo & up) Fluzone IM Intramuscular May 07, 2016 Ad ministered SOCIAL HISTORY Tobacco Use: Social History Observation Description Date Details (start date - stop date) Uses tobacco in other forms Sex Assigned At : Social History Observation Description Sex Assigned At Unknown Education: Question Answer Notes Level of Education: Finished High School Audit Question Answer Notes Total Score: 3 Interpretation: Alcohol Education Sexual Hx: Question Answer Notes Had sex in the last 12 months (vaginal, oral, or anal)? No Have you ever had an STD? No Drug and Alcohol Question Answer Notes Total Score: 0 Interpretation: No problems reported Tobacco Use: Question Answer Notes Are you a: Uses tobacco in other forms Additional Findings: Tobacco User Cigar smoker Smoking Cessation Information Given 06/13/2020 REASON FOR REFERRAL No Information VITAL SIGNS No information MEDICATIONS Medication SIG (Take, Route, Frequency, Duration) Notes Start Da te End Date Status Tolterodine Tartrate 2 MG 2 tablets Orally ONCE A DAY for 90 days Active Finasteride 5 MG TAKE ONE TABLET BY MOUTH EVERY DAY for 90 Active TRUEtest Test _ 1 strip In Vitro once daily as needed for 90 day (s) Nov, Active Lisinopril 20 MG TAKE ONE TABLET BY MOUTH EVERY DAY for 90 Active [place] 5-325 MG 1 tablet as needed Orally every 6 hrs MDD#4 for 10 day(s) October, Active Latanoprost 0.005 % 1 drop into affected eye in the evening Ophthalmic Once a day Active Timolol Hemihydrate 0.5 % 1 drop into affected eye Ophthalmic Once a day Active Fluticasone Propionate 50 MCG/ACT 1 spray in each nost ril Nasally BID for 30 day(s) Apr, Active MetFORMIN HCl ER 500 MG 1 tablet Orally twice daily for 90 day(s) Active Atorvastatin Calcium 80 MG 1 tablet Orally Once a day for 90 day(s) Active Vitamin D 25 MCG (1000 UT) 1 tablet Orally Once a day for 30 day(s) Active Baclofen 20 MG 1 tablet with food or milk O rally every 8 hrs- muscle relaxer for 30 day(s) Active Verapamil HCl ER 240 MG TAKE ONE TABLET BY MOUTH TWICE A DAY for 90 Active PROCEDURES No Information RESULTS No Results REASON FOR VISIT No Information MEDICAL (GENERAL) HISTORY Type Description Date Medical History HTN Medical History Hyperlipidemia Medical History Glaucoma Medical History Osteoarthritis Medical History Colon polyps Medical History V-fib- defib x2 12/2011 Medical History BPH-nocturia Medical History Obstructive Sleep Apnea Medical History Hx of BCC Surgical History Left ankle internal fixation Surgical History Right leg venous procedure Surgical History Bladder biopsy 2014 Surgical History Colonoscopy, polyps every 3 years 2012 Surgical History Bilateral knee arthroscopy Surgical History bilat. eye surgery 05/2016 Surgical History Right ankle replacement- Dr. Briones 2017 Surgical History Left carpal tunnel 2010 Surgical History Right carpal tunnel 2017 Hospitalization History Surgery Goals Section No Information Health Concerns No Information MEDICAL EQUIPMENT No Information MENTAL STATUS No Information FUNCTIONAL STATUS No Information ASSESSMENTS No Information PLAN OF TREATMENT Medication Medication Name Sig Start Date Stop Date Tolterodine Tartrate 2 MG 2 tablets Orally ONCE A DAY for 90 day s Verapamil HCl ER 240 MG TAKE ONE TABLET BY MOUTH TWICE A DAY for 90 MetFORMIN HCl ER 500 MG 1 tablet Orally twice daily for 90 day(s ) Next Appt Details Provider Name:Raj Zepeda, 01:00:00 PM, [address] [place] [address], [phone], Provider Name:Tong Rogers, 12-20 04:00:00 PM, [address] [facility], 1[address] Floor, [place], [address], Insurance Providers Payer Name Payer Address Payer Phone Insured Name Patient Relati onship to Insured Coverage Start Date Coverage End Date MEDICARE Part A and B [address] [facility] [id number] [facility] [address] [facility] [id number] [employer]
--- OUTSIDE RECORDS SUMMARY | 2020-08-20 07:02 | CCD ---
Author Author [facility] Organization [facility] Address Unknown Phone Unavailable Care Team Providers Care Flare Maker Name Role Phone Raj Zepeda Unavailable PROBLEMS Type Condition ICD9-CM Code [id number] Code Onset Dates Condition S tatus W/U Status Risk SNOMED Code Notes Problem Hypertension I10 Active confirmed 2374730 3 Problem Diabetes E11.9 Active confirmed 59565916 Problem Hyperlipidemia type III E78.2 Active confirmed 893345536 Problem Osteoarthritis M19.90 Active confirmed 22831 5006 Problem Dupuytren's contracture of right hand M72.0 Ac tive confirmed 20716585646209561 Problem Hypertensive heart disease without heart failure I 11.9 Active confirmed 14510901 Problem Type 2 diabetes mellitus with other diabetic kid maribell complication E11.29 Active confirmed 386211110 Problem Sleep apnea in adult G47.33 Active confirmed 49983042 Problem Lumbar degenerative disc disease M51.36 Active conf irmed 88688982 Problem Primary osteoarthritis, 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 71 Active confirmed 17870775 Problem Chronic rhinitis J31.0 Active confirmed 860 88410 Problem Carpal tunnel syndrome of right wrist G56.01 Ac tive confirmed 901756734896211 Problem Type 2 diabetes mellitus wit h diabetic nephropathy, without long-term current use of insulin E11.21 Active confirmed 3083111 6 Problem Benign prostatic hyperplasia with lower urinary tract symptoms N40.1 Active confirmed 598295904 Problem Primary osteoarthritis of both knees M17.0 Act asad confirmed 381193700 Problem Basal cell carcinoma (BCC) of right upper extremity C44.612 Active confirmed 450992682 ALLERGIES Allergen (clinical drug ingredient) Drug/Non Drug Allergy do cumented on EMR Reaction Allergy Type Onset Date Status simvastatin Simvastatin([facility] Code:[address]-67) Myalgia Drug Aller gy Active amoxicillin Amoxicillin([facility] Code:[address]-69) Rash Drug Aller gy Active ENCOUNTERS from 1950 to 2020-08-14 Encounter Location Date Provider Diagnosis [facility] [address] [place] [address] Jul Raj Nromanlaine Primary osteoarthritis of both knees M17 .0 ; Pre-op evaluation Z01.818 ; Type 2 diabetes mellitus with other diabetic kidney complication E11.29 ; Hypertensive heart disease without heart failure I11.9 ; Benign prostatic hyperplasia with lower urinary tract symptoms N40.1 ; Nocturia R35.1 ; Lumbar degenerative disc disease M51.36 and Chronic rhinitis J31.0 IMMUNIZATIONS Vaccine Route Administration Date Status Influenza [...] User Cigar smoker Smoking Cessation Information Given 08/12/2020 REASON FOR REFERRAL No Information VITAL SIGNS Weight 260 lbs Jul, Height 5'8.5" in Jul, BMI 38.95 kg/m2 Jul, Heart Rate 78 /min Jul, Respiratory Rate 16 /min Jul, Temperature 97.3 degrees Fahrenheit Jul, Oximetry 99ra 15 Feb, 2021 Blood pressure systolic 137 mm Hg Jul, Blood pressure diastolic 78 mm Hg Jul, MEDICATIONS Medication SIG (Take, Route, Frequency, Duration) Notes Start Da te End Date Status Verapamil HCl ER 240 MG 1 tablet Orally twice daily for 90 day(s) Active Fluticasone Propionate 50 MCG/ACT 1 spray in each nost ril Nasally BID for 30 day(s) Apr, Active Timolol Hemihydrate 0.5 % 1 drop into affected eye Ophthalmic Once a day Active Finasteride 5 MG TAKE ONE TABLET BY MOUTH EVERY DAY for 90 Active Farxiga 5 MG 1 tablet Orally Once a day for 30 day(s) Unknown Latanoprost 0.005 % 1 drop into affected eye in the evening Ophthalmic Once a day Active TRUEtest Test _ 1 strip In Vitro once daily as needed for 90 day (s) Nov, Active Baclofen 20 MG 1 tablet with food or milk O rally every 8 hrs- muscle relaxer for 30 day(s) Active Lisinopril 20 MG TAKE ONE TABLET BY MOUTH EVERY DAY for 90 Active Vitamin D 25 MCG (1000 UT) 1 tablet Orally Once a day for 30 day(s) Active Gail 5-325 MG 1 tablet as needed Orally every 6 hrs MDD#4 for 10 day(s) October, Active Tolterodine Tartrate 2 MG 2 tablets Orally ONCE A DAY for 90 days Active Atorvastatin Calcium 80 MG 1 tablet Orally Once a day for 90 day(s) Active Verapamil HCl ER 240 MG TAKE ONE TABLET BY MOUTH TWICE A DAY for 90 Active MetFORMIN HCl ER 500 MG 1 tablet Orally twice daily for 90 day(s) Active PROCEDURES No Information RESULTS Component Value Reference Range CBC - Complete Blood Count Reviewed date:08/12/2020 14:44:45 Interpretation: Performing Lab:[facility], [facility] [address] [facility] [id number] , ,[place] [address] WHITE BLOOD COUNT 8.7 4.0-10.0 RED BLOOD COUNT 5.04 4.30-6.10 HEMOGLOBIN 15.4 13.5-17.5 HEMATOCRIT 47.2 42.0-52.0 MEAN CORPUSCULAR VOLUME 93.7 80.0-96.0 MEAN CORPUSCULAR HEMOGLOBIN 30.6 27.0-33.0 MEAN CORPUSCULAR HGB CONC 32.6 32.0-36.5 RED CELL DISTRIBUTION WIDTH 13.2 11.5-14.5 PLATELET COUNT, AUTOMATED 174 150-450 Comprehensive Metabolic Profile (CMP) Reviewed date:08/12/2020 14:44:35 Interpretation: Performing Lab:[facility] [address] [facility] [id number] , ,[facility] GLUCOSE, FASTING 137 70-100 BLOOD UREA NITROGEN 20 7-18 CREATININE FOR GFR 0.97 0.70-1.30 GLOMERULAR FILTRATION RATE > 60.0 >49 SODIUM LEVEL 141 136-145 POTASSIUM SERUM 4.7 3.5-5.1 CHLORIDE LEVEL 106 98-107 CARBON DIOXIDE LEVEL 27 21-32 CALCIUM LEVEL 10.0 8.8-10.2 AST/SGOT 19 7-37 ALT/SGPT 46 12-78 ALKALINE PHOSPHATASE 67 45-117 BILIRUBIN,TOTAL 0.2 0.2-1.0 TOTAL PROTEIN 7.5 6.4-8.2 ALBUMIN 3.9 3.2-5.2 ALBUMIN/GLOBULIN RATIO 1.1 ERYTHROCYTE SEDIMENTATION RATE Reviewed date:08/12/2020 14:44:40 Interpretation: Performing Lab:[facility] [address] [place] [id number] , ,[facility] ERYTHROCYTE SEDIMENTATION RATE 14 0-20 PT-INR Reviewed date:08/12/2020 14:44:51 Interpretation: Performing Lab:[facility] [address] [facility] [address] , ,[facility] PROTHROMBIN TIME 12.7 12.5-14.3 INR 0.93 REASON FOR VISIT Patient here for pre op evaluation, he is having planned right TKA with Dr. Neha beltrán on 08/20/20. Patient has already been cleared by cardiology- he had stres s test. He has labs to complete today MEDICAL (GENERAL) HISTORY Type Description Date Medical [...] No Information FUNCTIONAL STATUS No Information ASSESSMENTS Encounter Date Diagnosis Assessment Notes Treatment Notes Treatm ent Clinical Notes Jul, Primary osteoarthritis of both knees (ICD-10 - M 17.0) Cont with [facility]G as scheduled. Pt aware and agreeable. Jul, Pre-op evaluation (ICD-10 - Z01.818) Labs are all okay. COVID test is scheduled. Final cardiac clearance has been completed with Dr Steve. He medically stable and may proceed with surgery as scheduled. Pt is aware and agreeable. Jul, Type 2 diabetes mellitus wit h other diabetic kidney complication (ICD-10 - E11.29) He is currently well controlled. Pt agreeable. Jul, Hypertensive heart disease without heart failure (ICD-10 - I11.9) Cont with cardiology as well. Jul, Benign prostatic hyperplasia with lower urinary tract symptoms (ICD-10 - N40.1) Cont with urology. Jul, Nocturia (ICD-10 - R35.1) Jul, Lumbar degenerative disc disease (ICD-10 - M51.3 6) Much improved, currently doing okay. Jul, Chronic rhinitis (ICD-10 - J31.0) Will cont prn. PLAN OF TREATMENT Medication Medication Name Sig Start Date Stop Date Tolterodine Tartrate 2 MG 2 tablets Orally ONCE A DAY for 90 day s Fluticasone Propionate 50 MCG/ACT 1 spray in each nost ril Nasally BID for 30 day(s) Apr, Verapamil HCl ER 240 MG 1 tablet Orally twice daily for 90 day(s ) MetFORMIN HCl ER 500 MG 1 tablet Orally twice daily for 90 day(s ) Treatment Notes Assessment Notes Clinical Notes Primary osteoarthritis of both knees Con t with [facility]G as scheduled. Pt aware and agreeable. Pre-op evaluation Labs are all okay. COVID test is scheduled. Final cardiac clearance has been completed with Dr Steve. He medically stable and may proceed with surgery as scheduled. Pt is aware and agreeable. Type 2 diabetes mellitus with other diabetic kidney complica tion He is currently well controlled. Pt agreeable. Hypertensive heart disease without heart failure Cont with cardiology as well. Benign prostatic hyperplasia with lower urinary tract sympto ms Cont with urology. Lumbar degenerative disc disease Much im proved, currently doing okay. Chronic rhinitis Will cont prn. Next Appt Details 3 Months Reason: Provider Name:Raj Zepeda, 10:30:00 AM, [address] [place] [address], [phone], Provider Name:Tong Rogers, 12-20 04:00:00 PM, [address] [place] [address], [address] [place] [address], [place], [address], Insurance Providers Payer Name Payer Address Payer Phone Insured Name Patient Relati onship to Insured Coverage Start Date Coverage End Date MEDICARE Part A and B [address] [facility] [phone] [facility] [address] [facility] [id number] [address] [employer] [employer]
--- OUTSIDE RECORDS SUMMARY | 2020-08-20 07:02 | CCD ---
Author Author [facility] Organization [facility] Address Unknown Phone Unavailable Care Team Providers Care Power Superintendent Name Role Phone Raj Zepeda Unavailable PROBLEMS Type Condition ICD9-CM Code UIO55-RB Code Onset Dates Condition S tatus W/U Status Risk SNOMED Code Notes Problem Hyperlipidemia type III E78.2 Active confirmed 167158686 Problem Hypertension I10 Active confirmed 4010074 3 Problem Dupuytren's contracture of right hand M72.0 Ac tive confirmed 14194542402903046 Problem Diabetes E11.9 Active confirmed 12113686 Problem Primary osteoarthritis, 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 71 Active confirmed 44859188 Problem Hypertensive heart disease without heart failure I 11.9 Active confirmed 56289108 Problem Type 2 diabetes mellitus with other diabetic kid maribell complication E11.29 Active confirmed 843006987 Problem Basal cell carcinoma (BCC) of right upper extremity C44.612 Active confirmed 699963580 Problem Carpal tunnel syndrome of right wrist G56.01 Ac tive confirmed 752495209522493 Problem Lumbar degenerative disc disease M51.36 Active conf irmed 05419867 Problem Osteoarthritis M19.90 Active confirmed 00339 5006 Problem Sleep apnea in adult G47.33 Active confirmed 59109181 Problem Type 2 diabetes mellitus wit h diabetic nephropathy, without long-term current use of insulin E11.21 Active confirmed 0377322 6 Problem Benign prostatic hyperplasia with lower urinary tract symptoms N40.1 Active confirmed 249972284 Problem Primary osteoarthritis of both knees M17.0 Act asad confirmed 939554687 ALLERGIES Allergen (clinical drug ingredient) Drug/Non Drug Allergy do cumented on EMR Reaction Allergy Type Onset Date Status simvastatin Simvastatin(NDC Code:[address]-20) Myalgia Drug Aller gy Active amoxicillin Amoxicillin([facility] Code:[address]-06) Rash Drug Aller gy Active ENCOUNTERS from 1950 to 2020-08-09 Encounter Location Date Provider Diagnosis [facility] [place] [address] Jul Raj Zepeda IMMUNIZATIONS Vaccine Route Administration Date Status Influenza [...] BY MOUTH EVERY DAY for 90 Active [place] 5-325 MG 1 tablet as needed Orally [...] Information RESULTS No Results REASON FOR VISIT FYI..... MEDICAL (GENERAL) HISTORY Type Description Date Medical [...] ) Next Appt Details Provider Name:Raj Zepeda, 09:00:00 AM, [address] [place], [address], Provider Name:Tong Rogers, 12-20 04:00:00 PM, [address] [facility], [address]st [facility], [place], [address], Insurance Providers Payer Name Payer Address Payer Phone Insured Name Patient Relati onship to Insured Coverage Start Date Coverage End Date MEDICARE Part A and B [address] [facility] [phone] ANGELES SANDERS [facility] [address] [facility] [id number] N ANGELES LINARES self
--- OUTSIDE RECORDS SUMMARY | 2020-08-20 07:02 | CCD ---
Continuity of Care Document (CCD) Created on: 08/09/2020 Quinton White JR External Reference #: [id number] : 1950 Sex: Male Author Author Quinton MENDOZA PShawn Organization Unknown Address [address] [place] [address] Phone [phone] Care Team Providers Care Management Department Chair Name Role Phone Raj Zepeda DO AUTM [phone] Raj Zepeda DO AUTM [phone] Problems Active Problems Provider Date Obstructive sleep apnea syndrome Josue Steve MD Onset: 08/03/2016 Body mass index 30+ - obesity Josue Steve MD Onset: 11/2016 Backache Onset: Sciatica Onset: Nocturia Josue Steve MD Onset: 01/30/2016 Takotsubo cardiomyopathy Luana Solitario FNP Onset: Edema Josue Steve MD Onset: 02/05/2015 Primary cardiomyopathy Luana Solitaroi FNP Onset: 02/2012 Dyspnea Josue Steve MD Onset: 08/07/2014 Ventricular fibrillation Luana Solitario FNP Onset: Preoperative cardiovascular examination Josue Steve MD Onset: 10/09/2013 Benign hypertensive heart disease 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 eart failure Luana Solitario FNP Onset: 05/06/2012 Electrocardiogram abnormal Josue Steve MD Onset: 2012 Pure hypercholesterolemia Luana Solitario FNP Onset: 1 07/06/2011 Obesity Luana Solitario FNP Onset: 012 Body mass index 40+ - severely obese Josue Steve MD Ons et: 07/01/2017 Tobacco user Luana Solitario FNP Onset: 012 Social History Type Date Description Comments Sex Unknown ETOH Use Occasionally consumes alcohol Tobacco Use Start: Unknown Patient is a current smoker, smo kes every day Tobacco Use Start: Unknown cigars Allergies, Adverse Reactions, Alerts Active Allergies Reaction Severity Comments Date Amoxicillin Urticaria 08/07/2014 Medications Active Medications SIG Qnty Indications Ordering Provide r Date Hibiclens 4% Liquid use in shower once daily for 5 days before surgery 1units Katie camargo MD 08/06/2020 Mupirocin 2% Ointment apply a pea sized amount to the nasal passages 3 times a day for 5 days prior to surgery 22gm Katie Espinoza MD 08/06/2020 Bactrim DS 800-160mg Tablets 1 by mouth twice a day 20tabs Chucky Oconnor MD 0 Hibiclens 4% Liquid use in shower once daily for 5 days before surgery 1units Chucky israel MD 06/17/2020 Bactroban 2% Ointment apply a pea sized amount to nasal passages three times a day x 5d before surgery QS Chucky Oconnor MD 06/17/2020 Gabapentin 100mg Capsules 2 qpm and 2qam 60caps M54.5 Umesh Ahmadi MD 11/01/2019 Atorvastatin Calcium 80mg Tablets 1 by mouth every night at bedtime 90tabs Josue Steve MD 0 08/02/2016 Finasteride 5mg Tablets 1 by mouth every day Josue Steve MD 08/02/2016 Naproxen 375mg Tablets Take One Tablet By Mouth Once Daily In The Morning 90tabs R60.0 Josue Steve M D 02/05/2015 Lisinopril 20mg Tablets 1 po daily Sumit Norris MD 01/27/2012 Verapamil HCL ER 240mg Tablets ER Raj Zepeda DO Baclofen 20mg Tablets Every 8 Hours As Needed as needed for Pain Unknown Metformin HCL ER 500mg Tablets ER 24HR Twice A Day Unknown Immunizations Description No Information Available Vital Signs Date Vital Result Comment 08/09/2020 8:19am BP Systolic 132 mmHg BP Diastolic 80 mmHg Heart Rate 78 /min Body Temperature 97.3 F Height 69 inches 5'9" Weight 259.00 lb BMI (Body Mass Index) 38.2 kg/m2 Respiratory Rate 14 /min 06/17/2020 10:10am BP Systolic 132 mmHg BP Diastolic 84 mmHg Heart Rate 80 /min Body Temperature 96.9 F Height 68.5 inches 5'8.50" Weight 250.00 lb BMI (Body Mass Index) 37.5 kg/m2 Respiratory Rate 16 /min Results Description No Information Available Procedures Description No Information Available Medical Devices Description No Information Available Encounters Type Date Location Provider Dx Diagnosis Office Visit 06/17/2020 10:[place]a [place] PA-C L03.115 Cellulitis of right lower limb M17.11 Unilateral primary osteoarth ritis, right knee Office Visit 2020 11:00a [place] Espinoza MD M1 7.0 Bilateral primary osteoarthritis of knee Assessments Date Code Description Provider 06/17/2020 L03.115 Cellulitis of right lower limb Aj Sanchez PA-C 06/17/2020 M17.11 Unilateral primary osteoarthriti s, right knee BAKARI DuqueC 2020 M17.0 Bilateral primary osteoarthritis of knee Katie Espinoza MD Plan of Treatment Future Appointment(s):* 09/03/2020 3:00 pm - Katie Espinoza MD at [place] * 08/20/2020 8:45 am - Colette Sanchez PA-C at Surgery [facility] Inpatient * 08/20/2020 8:45 am - Katie Espinoza MD at Surgery [facility] Inpatient Functional Status Description No Information Available Mental Status Description No Information Available Referrals Refer to Dr Reason for Referral Status Appt Date Umesh Ahmadi MD SURGERY NO AUTH REQUIRED FOR TOTAL RT KNEE([id number]) TO SURGERY NT Created [address] [place] [address] [phone] Umesh Ahmadi MD TOTAL RT KNEE([id number]) NO AUTH REQUIRED TO SURG ÓSCAR NT Created [address] [place] [address] [phone] Colette Sanchez PA-C REF NO AUTH REQUIRED FOR REF TO DR DANIELA MARTINEZ TO TRANS NT Created [address] [facility] [address] [place] [address] [phone] Umesh Ahmadi MD SURGERY NO AUTH REQUIRED FOR RT TOTAL KNEE([id number]) TO SURGERY NT Created [address] [facility], [address] [place] [address] [phone]
--- OUTSIDE RECORDS SUMMARY | 2020-08-20 07:02 | CCD | Continuity of Care Document ---
Author Author Quinton BLAND MD Organization Unknown Address [address] [address] Phone [phone] Care Team Providers Care Chocolate Production Machine Operator Name Role Phone Colette SanchezKrishnaRosalieKrishna AUTM [phone] Problems Active Problems Provider Date Obstructive sleep apnea syndrome Mikala Julian, A.N.P. Onset: 06/01/2013 Disturbance of consciousness Mikala Julian, A.N.P. Onse t: 04/13/2013 Sleep apnea Mikala Julian, A.N.P. Onset: 2012 Essential hypertension Kaden Bland JR, MD Onset: 07/10/19 21 Social History Type Date Description Comments Sex Unknown ETOH Use Sociable Recreational Drug Use Denies Drug Use Tobacco Use Start: Unknown Patient is a current smoker, smo kes every day 1 PPD FOR 50 YEARS Allergies, Adverse Reactions, Alerts Active Allergies Reaction Severity Comments Date Amoxicillin Dizziness, Hives, RASH 07/10 Medications Active Medications SIG Qnty Indications Ordering Provide r Date Bactrim DS 800-160mg Tablets 1 by mouth twice a day 20tabs Kaden Bland JR, MD 07/10/2020 Lisinopril 20mg Tablets 1 po every day Unknown Verapamil HCL ER 240mg Tablets ER 1 po bid Unknown Metformin HCL 500mg Tablets 1 bid Unknown Farxiga 5mg Tablets 1 qd Unknown Atorvastatin Calcium 80mg Tablets 1 qd Unknown Tolterodine Tartrate ER 4mg Caps E R 24HR 1 qd Unknown Timolol Eye Drops 1 GTT Each Eye qd Unknown Latanoprost 0.005% Solution 1 GTT Each Eye qd Unknown Immunizations Description No Information Available Vital Signs Date Vital Result Comment 07/10/2020 3:15pm BP Systolic 188 mmHg BP Diastolic 84 mmHg Height 69 inches 5'9" Weight 257.25 lb BMI (Body Mass Index) 38.0 kg/m2 Raymond Body Weight 160 lb Weight 116.689 kg BSA (Body Surface Area) 2.30 m2 11/03/2013 12:56pm BP Systolic 104 mmHg BP Diastolic 70 mmHg Heart Rate 83 /min O2 % BldC Oximetry 94 % Height 68 inches Weight 266.00 lb BMI (Body Mass Index) 40.4 kg/m2 Weight 120.656 kg Results Description No Information Available Procedures Description No Information Available Medical Devices Description No Information Available Encounters Description No Information Available Assessments Description No Information Available Plan of Treatment No Information Available Functional Status Description No Information Available Mental Status Description No Information Available Referrals Refer to Reason for Referral Status Appt Date Kaden Bland JR, MD ERYTHEMA RT THIGH Scheduled [address] [place] [address] [phone]
--- OUTSIDE RECORDS SUMMARY | 2020-08-20 07:02 | CCD | Continuity of Care Document ---
Author Organization Unknown Address Unknown Phone Unavailable Care Team Providers Care Batterboard Setter Name Role Phone Raj Zepeda DO AUTM [phone] Raj Zepeda DO AUTM [phone] Problems Active Problems Provider Date Obstructive sleep apnea syndrome Josue Steve MD Onset: 08/03/2016 Body mass index 30+ - obesity Josue Steve MD Onset: 11/2016 Backache Onset: Sciatica Onset: Nocturia Josue Steve MD Onset: 01/30/2016 Takotsubo cardiomyopathy Luana Solitario FNP Onset: Edema Josue Steve MD Onset: 02/05/2015 Primary cardiomyopathy Luana Solitario FNP Onset: 02/2012 Dyspnea Josue Steve MD [...] 37.5 kg/m2 Respiratory Rate 16 /min Results Test Acquired Date Facility Test Result H/L Range Note Prothrombin Time/Inr 08/12/2020 [facility] entr [address] [place] [address] (315)- - Prothrombin Time 12.7 seconds Normal 12.5-14.3 Inr 0.93 Normal 1 Complete Blood Count 08/12/2020 [facility] entr [address] [place] [address] (315)- - White Blood Count 8.7 10 Normal 4.0-10.0 Red Blood Count 5.04 10 Normal 4.30-6.10 Hemoglobin 15.4 g/dL Normal 13.5-17.5 Hematocrit 47.2 % Normal 42.0-52.0 Mean Corpuscular Volume 93.7 fl Normal 80.0-96.0 Mean Corpuscular Hemoglobin 30.6 pg Normal 27.0-33.0 Mean Corpuscular HGB Conc 32.6 g/dL Normal 32.0-36.5 Red Cell Distribution Width 13.2 % Normal 11.5-14.5 Platelet Count, Automated 174 10 Normal 150-450 Nucleated Red Blood Cell % 0.0 % Normal 0-0 Laboratory test finding 08/12/[address] [address] (315)- - Erythrocyte Sedimentation Rate 14 mm/hr Normal 0-20 2 Comprehensive Metabolic Profil 08/12/[address] [address] (315)- - Glucose, Fasting 137 mg/dL High 70-100 Blood Urea Nitrogen 20 mg/dL High 7-18 Creatinine For GFR 0.97 mg/dL Normal 0.70-1.30 Glomerular Filtration Rate > 60.0 Normal >49 3 Sodium Level 141 mEq/L Normal 136-145 Potassium Serum 4.7 mEq/L Normal 3.5-5.1 Chloride Level 106 mEq/L Normal 98-107 Carbon Dioxide Level 27 mEq/L Normal 21-32 Anion Gap 8 mEq/L Normal 8-16 Calcium Level 10.0 mg/dL Normal 8.8-10.2 Ast/Sgot 19 U/L Normal 7-37 Alt/SGPT 46 U/L Normal 12-78 Alkaline Phosphatase 67 U/L Normal 45-117 Bilirubin,Total 0.2 mg/dL Normal 0.2-1.0 Total Protein 7.5 GM/DL Normal 6.4-8.2 Albumin 3.9 GM/DL Normal 3.2-5.2 Albumin/Globulin Ratio 1.1 Normal 1 THERAPUTIC HUMAN INR VALUES INDICATIONS NORMAL RANGES PROPHYLAXIS/TREATMENT OF: VENOUS THROMBOSIS 2.0-3.0 PULMONARY EMBOLISM 2.0-3.0 PREVENTION OF SYSTEMIC EMBOLISM FROM: TISSUE HEART VALVES 2.0-3.0 ACUTE MYOCARDIAL INFARCTION 2.0-3.0 VALVULAR HEART DISEASE 2.0-3.0 ATRIAL FIBRILLATION 2.0-3.0 MECHANICAL VALVES(HIGH RISK) 2.5-3.5 RECURRENT MYOCARDIAL INFARCTION 2.5-3.5 2 Part of Anticoagulation Prot ocol N 3 Units are mL/min/1.73 m2 Chronic Kidney Disease Staging per NKF: Stage I & II GFR >=60 Normal to Mildly Decreased Stage III GFR 30-59 Moderately Decreased Stage IV GFR 15-29 Severely Decreased Stage V GFR <15 Very Little GFR Left ESRD GFR <15 on MANAGER OF TRANSPORTATION Procedures Description No Information Available Medical Devices Description No Information Available Encounters Type Date Location Provider Dx Diagnosis Office Visit 08/09/2020 8:00a Katie Finnegan PKrishnaA. Z01.818 Encounter for other preprocedural examination M17.11 Unilateral primary osteoarth ritis, right knee Office Visit 06/17/2020 10:00a Katie Sanchez PA-C L03.115 Cellulitis of right lower limb M17.11 Unilateral primary osteoarth ritis, right knee Office Visit 2020 11:00a Katie Espinoza MD M1 7.0 Bilateral primary osteoarthritis of knee Assessments Date Code Description Provider 08/09/2020 Z01.818 Encounter for other preprocedura l examination Cipriano Finnegan P.A. 08/09/2020 M17.11 Unilateral primary osteoarthriti s, right knee Lyle LangeAKrishna 06/17/2020 L03.115 Cellulitis of right lower limb Aj Sanchez PA-C 06/17/2020 M17.11 Unilateral primary osteoarthriti s, right knee Colette Sanchez PA-C 2020 M17.0 Bilateral primary osteoarthritis of knee Katie Espinoza MD Plan of Treatment Future Appointment(s):* 09/03/2020 3:00 pm - Katie Espinoza MD at [place] * 08/20/2020 8:45 am - Colette Sanchez PA-C at Surgery [facility] Inpatient * 08/20/2020 8:45 am - Katie Espinoza MD at Surgery [facility] Inpatient Functional Status Description No Information Available Mental Status Description No Information Available Referrals Refer to Dr Reason for Referral Status Appt Date Umesh Ahmadi MD SURGERY NO AUTH REQUIRED FOR TOTAL RT KNEE([id number]) TO SURGERY NT Created [address] [place] [address], [place] [address] [phone] Umesh Ahmadi MD TOTAL RT KNEE([id number]) NO AUTH REQUIRED TO SURG ÓSCAR NT Created [address] [place] [address], [place] [address] [phone] Colette Sanchez PA-C REF NO AUTH REQUIRED FOR REF TO DR DANIELA MARTINEZ TO TRANS NT Created [address] [place], [place] [id number] [place] [id number] [phone] Umesh Ahmadi MD SURGERY NO AUTH REQUIRED FOR RT TOTAL KNEE([id number]) TO SURGERY NT Created [address] [place] [address], [place] [address] [phone]
--- OUTSIDE RECORDS SUMMARY | 2020-08-20 07:02 | CCD ---
Author Author [facility] Organization [facility] Address Unknown Phone Unavailable Care Team Providers Care Iron Worker Apprentice Name Role Phone Raj Zepeda Unavailable PROBLEMS Type Condition ICD9-CM Code KBL51-DY Code Onset Dates Condition S tatus W/U Status Risk SNOMED Code Notes Problem Hyperlipidemia type III E78.2 Active confirmed 430965173 Problem Hypertension I10 Active confirmed 8128791 3 Problem Dupuytren's contracture of right hand M72.0 Ac tive confirmed 95177109843496230 Problem Diabetes E11.9 Active confirmed 08077677 Problem Primary osteoarthritis, 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 71 Active confirmed 67612801 Problem Hypertensive heart disease without heart failure I 11.9 Active confirmed 25002075 Problem Type 2 diabetes mellitus with other diabetic kid maribell complication E11.29 Active confirmed 993015173 Problem Basal cell carcinoma (BCC) of right upper extremity C44.612 Active confirmed 281728317 Problem Carpal tunnel syndrome of right wrist G56.01 Ac tive confirmed 654462269648798 Problem Lumbar degenerative disc disease M51.36 Active conf irmed 62687288 Problem Osteoarthritis M19.90 Active confirmed 99253 5006 Problem Sleep apnea in adult G47.33 Active confirmed 54695769 Problem Type 2 diabetes mellitus wit h diabetic nephropathy, without long-term current use of insulin E11.21 Active confirmed 8851535 6 Problem Benign prostatic hyperplasia with lower urinary tract symptoms N40.1 Active confirmed 289699334 Problem Primary osteoarthritis of both knees M17.0 Act asad confirmed 371653886 ALLERGIES Allergen (clinical drug ingredient) Drug/Non Drug Allergy do cumented on EMR Reaction Allergy Type Onset Date Status simvastatin Simvastatin(NDC Code:[address]-78) Myalgia Drug Aller gy Active amoxicillin Amoxicillin([facility] Code:[address]-97) Rash Drug Aller gy Active ENCOUNTERS from 1950 to 2020-08-09 Encounter Location Date Provider Diagnosis [facility] [address] Jul Raj Zepeda IMMUNIZATIONS Vaccine Route Administration [...] BY MOUTH EVERY DAY for 90 Active [place] 5-325 MG 1 tablet as needed Orally [...] Information RESULTS No Results REASON FOR VISIT ortho pre op MEDICAL (GENERAL) HISTORY Type Description Date Medical [...] Appt Details Provider Name:Raj Zepeda, 09:00:00 AM, [address] [place] [address], [address], Provider Name:Tong Rogers, 12-20 04:00:00 PM, [address] [facility], [address] [facility], [place], [address], Insurance Providers Payer Name Payer Address Payer Phone Insured Name Patient Relati onship to Insured Coverage Start Date Coverage End Date [facility] [address] [facility] [id number] ANGELES LERMA MEDICARE Part A and B [address] [facility] [address] [phone] [employer]
--- OUTSIDE RECORDS SUMMARY | 2020-08-20 07:03 | CCD | Continuity of Care Document ---
Author Author Quinton FINEC Organization Unknown Address [address] [place] [address] Phone [phone] Care Team Providers Care Student Nurse Name Role Phone Raj Zepeda DO AUTM [phone] Raj Zepeda DO AUTM [phone] Problems Active Problems Provider Date Obstructive sleep [...] Tablets ER 24HR Twice A Day Unknown History Medications Euflexxa 20mg/2ML Soln Prefill Syr sheldon ronel knee #1 klf/rm 01/12/2020, ronel knee # 2 klf/ng 01/19/2020, ronel knee #3 klf/ng 01/31/2020 Ángel Miguel MD 01/12/2020 - 03/21/2020 Immunizations Description No Information Available Vital Signs Date Vital Result Comment 06/17/2020 10:10am BP Systolic 132 mmHg BP Diastolic 84 mmHg Heart Rate 80 /min Body Temperature 96.9 F Height 68.5 inches 5'8.50" Weight 250.00 lb BMI (Body Mass Index) 37.5 kg/m2 Respiratory Rate 16 /min 2020 10:45am Body Temperature 96.5 F Height 68 inches 5'8" Weight 244.00 lb BMI (Body Mass Index) 37.1 kg/m2 Results Test Acquired Date Facility Test Result H/L Range Note Order 03/25/2020 [facility] nter Surgery <pending> Procedures Date Code Description Status 01/31/2020 Inject/Drain Joint/Bursa Major C ompleted 01/19/2020 Inject/Drain Joint/Bursa Major C ompleted 01/12/2020 Inject/Drain Joint/Bursa Major C ompleted Medical Devices Description No Information Available Encounters Type Date Location Provider Dx Diagnosis Office Visit 06/17/2020 10:00a [facility] Colette L. Daniel, PA-C L03.115 Cellulitis of right lower limb M17.11 Unilateral primary osteoarth ritis, right knee Office Visit 2020 11:00a [facility] Katie Espinoza MD M1 7.0 Bilateral primary osteoarthritis of knee Office Visit 01/31/2020 9:45a [facility] Colette L. Fish, PA-C M17.0 Bilateral primary osteoarthritis of knee Office Visit 01/19/2020 10:00a [facility] Colette L. Fish, PA-C M17.0 Bilateral primary osteoarthritis of knee Office Visit 01/12/2020 9:45a [facility] Colette L. Fish, PA-C M17.0 Bilateral primary osteoarthritis of knee Assessments Date Code Description Provider 06/17/2020 L03.115 Cellulitis of right lower limb K aren L. Fish, PA-C 06/17/2020 M17.11 Unilateral primary osteoarthriti s, right knee Colette L. Fish, PA-C 2020 M17.0 Bilateral primary osteoarthritis of knee DKrishna Espinoza MD 01/31/2020 M17.0 Bilateral primary osteoarthritis of knee Colette L. Fish, PA-C 01/19/2020 M17.0 Bilateral primary osteoarthritis of knee Colette L. Fish, PA-C 01/12/2020 M17.0 Bilateral primary osteoarthritis of knee Colette L. Fish, PA-C Plan of Treatment Future Appointment(s):* 07/24/2020 12:15 pm - Colette Fine PA-C at Surgery [facility] Inpatient * 07/24/2020 12:15 pm - Katie Espinoza MD at Surgery [facility] Inpatient 06/17/2020 - Colette Fine PA-C* L03.115 Cellulitis of right lower limb * M17.11 Unilateral primary osteoarthritis, right knee * All * New Medication:* Bactrim DS 800-160 mg - 1 by mouth twice a day * Hibiclens 4 % - use in shower once daily for 5 days before surgery * Bactroban 2 % - apply a pea sized amount to nasal passages three times a day x 5d before surgery Functional Status Description No Information Available Mental Status Description No Information Available Referrals Refer to Dr Reason for Referral Status Appt Date Colette Fine PA-C REF NO AUTH REQUIRED FOR REF TO DR DANIELA MARTINEZ TO TRANS NT Created [address] [place] [address] [phone] Umesh Ahmadi MD SURGERY NO AUTH REQUIRED FOR TOTAL RT KNEE([id number]) TO SURGERY NT Created [address] [place] [address] [phone] Umesh Ahmadi MD SURGERY NO AUTH REQUIRED FOR RT TOTAL KNEE([id number]) TO SURGERY NT Created [address] [place] [address] [phone] Umesh Ahmadi MD EUFLEXXA RONEL KNEE INJ NO AUT H REQUIRED PER FLOWER Nath REF#[id number], PASSING TO [place]. Created [address] [place] [address] [phone] Umesh Ahmadi MD EUFLEXXA RONEL KNEE INJ NO AUT H REQUIRED, PASSING TO [place]. Created [address] [place] [address] [phone]
--- OUTSIDE RECORDS SUMMARY | 2020-08-20 07:03 | CCD | Continuity of Care Document ---
Author Organization Unknown Address Unknown Phone Unavailable Care Team Providers Care Cost And Risk Analysis Manager Name Role Phone Raj Zepeda AUTM [phone] Gallo Ramey MD AUTM [phone] Keyshawn Coy MD AUTM [phone] Calvin Polanco MD AUTM [phone] Umesh Ahmadi MD AUTM [phone] Mami Hillman MD AUTM [phone] Paulie Espinoza MD AUTM [phone] Problems Active Problems Provider Date Takotsubo cardiomyopathy RISSA Reed-MARCO Onset: 05/06/2012 Primary cardiomyopathy JOSE Reed Onset: Ventricular fibrillation RISSA Reed-MARCO Onset: 05/06/2012 Benign hypertensive heart disease 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 eart failure RISSA Reed-MARCO Onset: 05/06/2012 Pure hypercholesterolemia RISSA Reed-MARCO Onset: 05/06/2012 Obesity RISSA Reed-MARCO Onset: 05/06 Tobacco user RISSA Reed-MARCO Onset: 05/06 Electrocardiogram abnormal Josue Steve MD Onset: 2012 Preoperative cardiovascular examination Josue Steve MD Onset: 10/09/2013 Dyspnea Josue Steve MD Onset: 08/07/2014 Edema Josue Steve MD Onset: 02/05/2015 Nocturia Josue Steve MD Onset: 01/30/2016 Obstructive sleep apnea syndrome Josue Steve MD Onset: 08/03/2016 Body mass index 30+ - obesity Josue Steve MD Onset: 11/2016 Body mass index 40+ - severely obese Josue Steve MD Ons et: 07/01/2017 Social History Type Date Description Comments Sex Unknown Tobacco Use Start: Unknown Currently Smokes an Occasional C igar ETOH Use Rarely consumes beer Tobacco Use Start: Unknown End: Unknown Patient is a former smoker Previously he would smoke up to one pack per day. Currently has an occasional cigar Smoking Status Reviewed: 06/29/18 Patient is a former smoker Pr eviously he would smoke up to one pack per day. Currently has an occasional cigar Exercise Type/Frequency Does not exercise curren tly Exercise Limitations Shortness Of Breath walking long distances Exercise Limitations Joint Pain bilateral k nees Allergies, Adverse Reactions, Alerts Active Allergies Reaction Severity Comments Date Amoxicillin hives 08/07/2014 Inactive Allergies NKDA 02/28/2008 Medications Active Medications SIG Qnty Indications Ordering Provide r Date Metformin HCL 500mg Tablets 1 by mouth twice a day Unknown 07/31/2019 Atorvastatin Calcium 80mg Tablets 1 by mouth every night at bedtime 90tabs Josue Steve MD 08/02/2016 Finasteride 5mg Tablets 1 by mouth every day Josue Steve MD 08/02/2016 Latanoprost 0.005% Solution 1 gtt o.u. qhs Raj Zepeda, DO 08/17/2012 Timolol Maleate 0.5% GFS 1 gt ts qd Raj Zepeda, DO 08/17/2012 Lisinopril 20mg Tablets 1 po daily Sumit Atkinson MD 01/27/2012 Verapamil HCL ER 240mg Caps ER 24H R 1 PO bid Panchito Lopez MD 02/28/2008 Immunizations Description No Information Available Vital Signs Date Vital Result Comment 08/01/2019 8:00am Weight 260.00 lb Height 69.5 inches 5'9.50" BMI (Body Mass Index) 37.8 kg/m2 Heart Rate 78 /min Respiratory Rate 16 /min BP Systolic Sitting 114 mmHg Medium cuff, Ra BP Diastolic Sitting 60 mmHg Medium cuff, Ra BP Systolic Lying Down 126 mmHg BP Diastolic Lying Down 62 mmHg 06/29/2018 2:20pm Weight 250.00 lb Height 69.5 inches 5'9.50" BMI (Body Mass Index) 36.4 kg/m2 Heart Rate 76 /min regular Respiratory Rate 16 /min BP Systolic Sitting 108 mmHg Medium cuff, Ra BP Diastolic Sitting 58 mmHg Medium cuff, Ra BP Systolic Lying Down 122 mmHg BP Diastolic Lying Down 66 mmHg Results Test Acquired Date Facility Test Result H/L Range Note CBC without Differential 06/05/2020 [facility] White Blood Count 8.0 Red Blood Count 4.8 Platelets 177 Hemoglobin 15.3 Hematocrit 44.2 CMP 06/05/2020 [facility] Albumin Serum/Plasma 4.4 Alt - SGPT 30 Calcium Ser/Plasma Mass/Vol 9.5 Carbon Dioxide Ser/Plasm 21 Chloride Serum/Plasma 106 Alkaline Phosphatase 66 Potassium 4.6 Protein Total 6.7 Sodium 4.6 Ast - Sgot 17 BUN - Urea Nitrogen 17 Glucose 125 Creatinine For GFR 0.83 Lipid Profile/Cardiac Risk Pro 06/05/2020 [facility] Triglycerides 363 High <150 Cholesterol 212 High <200 HDL 52 >40.0 LDL Cholesterol 99 Chol/HDL Ratio -- <5 Hemoglobin A1c 06/05/2020 [facility] Hemoglobin A1c 6.8 Procedures Description No Information Available Medical Devices Description No Information Available Encounters Description No Information Available Assessments Description No Information Available Plan of Treatment 08/01/2019 - Josue Steve MD* R06.02 Shortness of breath* Recommendations:* We have emphasized the importance of weight reduction along with regular low level aerobic exercise. * R94.31 Abnormal electrocardiogram [ECG] [EKG] * I11.9 Hypertensive heart disease without heart failure* Recommendations:* Encouraged continued modest salt and low carbohydrate diet (avoiding bread, potatoes, spaghetti, rice, fruit, beer, and dessert etc.) especially in light of his suboptimally controlled diabetes mellitus. Will continue on the same verapamil ER and lisinopril. We would appreciate a copy of any followup blood work for our records * R60.0 Localized edema* Recommendations:* Continues to wear a support stocking. Dietary measures as mentioned above. No change was made to his verapamil therapy. * G47.33 Obstructive sleep apnea (adult) (pediatric)* Recommendations:* Will continue to use CPAP as directed by pulmonary medicine. * All * Comments:* Thank you for allowing me to participate in the care of your patient. Best regards. * Follow up:* Followup appointment with EKG in 1 year. We would be pleased to reassess the patient at any time. Functional Status Functional Condition Comment Date Status Independent with all ADL's Activ e Mental Status Description No Information Available Referrals Description No Information Available
--- OUTSIDE RECORDS SUMMARY | 2020-08-20 07:03 | CCD | Continuity of Care Document ---
Author Author Quinton FINEC Organization Unknown Address [address] [place] [address] Phone [phone] Care Team Providers Care Forensic Identification Specialist Name Role Phone Raj Zepeda DO AUTM [phone] Raj Zepeda DO AUTM [phone] Problems Active Problems Provider Date Obstructive sleep [...] before surgery 1units Chucky israel MD 06/17/2020 Gabapentin 100mg Capsules 2 qpm [...] Test Result H/L Range Note Order 03/25/2020 [facility] nter Surgery <pending> Procedures Date Code Description Status 01/31/2020 Inject/Drain Joint/Bursa Major C ompleted 01/19/2020 Inject/Drain Joint/Bursa Major C ompleted 01/12/2020 Inject/Drain Joint/Bursa Major C ompleted 12/22/2019 19138 X-Ray Knee Complete W/Obliques & Tunnel And/Or Standing Views Completed 12/22/2019 84325 X-Ray Knee Complete W/Obliques & Tunnel And/Or Standing Views Completed 12/22/2019 96273 X-Ray Knee Complete W/Obliques & Tunnel And/Or Standing Views Completed 12/22/201915828 Inject/Drain Joint/Bursa Major C ompleted Medical Devices Description No Information Available Encounters Type Date Location Provider Dx Diagnosis Office Visit 2020 11:00a [facility] DKrishna Espinoza MD M1 7.0 Bilateral primary osteoarthritis of knee Office Visit 01/31/2020 9:45a [place] Colette L. Daniel, PA-C M17.0 Bilateral primary osteoarthritis of knee Office Visit 01/19/2020 10:00a [place] Colette L. Daniel PA-C M17.0 Bilateral primary osteoarthritis of knee Office Visit 01/12/2020 9:45a [place] Colette L. Fish PA-C M17.0 Bilateral primary osteoarthritis of knee Office Visit 12/22/2019 3:30p [facility] Colette L. Fish, PA-C M17.0 Bilateral primary osteoarthritis of knee Assessments Date Code Description Provider 2020 M17.0 Bilateral primary osteoarthritis of knee Katie Espinoza MD 01/31/2020 M17.0 Bilateral primary osteoarthritis of knee Colette L. Fish, PA-C 01/19/2020 M17.0 Bilateral primary osteoarthritis of knee Colette L. Fish, PA-C 01/12/2020 M17.0 Bilateral primary osteoarthritis of knee Colette L. Daniel, PA-C 12/22/2019 M17.0 Bilateral primary osteoarthritis of knee Colette L. Fish, PA-C Plan of Treatment Future Appointment(s):* 07/03/2020 10:00 am - Katie Espinoza MD at [facility] * 06/19/2020 12:15 pm - Colette Fine PA-C at Surgery [facility] Inpatient * 06/19/2020 12:15 pm - Katie Espinoza MD at Surgery [facility] Inpatient 2020 - Katie Espinoza MD* M17.0 Bilateral primary osteoarthritis of knee* Follow up:* post op Functional Status Description No Information Available Mental Status Description No Information Available Referrals Refer to Dr Reason for Referral Status Appt Date Umesh Ahmadi MD SURGERY NO AUTH REQUIRED FOR TOTAL RT KNEE(53427) TO SURGERY NT Created [address] [place] [address] [phone] Umesh Ahmadi MD SURGERY NO AUTH REQUIRED FOR RT TOTAL KNEE(59348) TO SURGERY NT Created [address] [place] [address] [phone] Umesh Ahmadi MD EUFLEXXA RONEL KNEE INJ NO AUT H REQUIRED PER [facility]OWER E REF#[id number], PASSING TO [facility]. LM Created [address] [place] [address] [phone] Umesh Ahmadi MD EUFLEXXA RONEL KNEE INJ NO AUT H REQUIRED, PASSING TO [facility]. Created [address] [place] [address] [phone]
--- OUTSIDE RECORDS SUMMARY | 2020-08-20 07:03 | CCD ---
Author Author [facility] Organization [facility] Address Unknown Phone Unavailable Care Team Providers Care Science Manager Name Role Phone Raj Zepeda Unavailable PROBLEMS Type Condition ICD9-CM Code [id number] Code Onset Dates Condition S tatus SNOMED Code Notes Problem Hyperlipidemia type III E78.2 Active 51253190 5 Problem Hypertension I10 Active 10290700 Problem Dupuytren's contracture of right hand M72.0 Active 95875954095784273 Problem Diabetes E11.9 Active 43854409 Problem Primary osteoarthritis, 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 71 Active 88492657 Problem Hypertensive heart disease without heart failure I 11.9 Active 18592238 Problem Type 2 diabetes mellitus with other diabetic kid maribell complication E11.29 Active 092381051 Problem Basal cell carcinoma (BCC) of right upper extremity C44.612 Active 688187507 Problem Carpal tunnel syndrome of right wrist G56.01 Ac tive 603899618136930 Problem Lumbar degenerative disc disease M51.36 Active 74230450 Problem Osteoarthritis M19.90 Active 642872726 Problem Sleep apnea in adult G47.33 Active 98114150 Problem Type 2 diabetes mellitus wit h diabetic nephropathy, without long-term current use of insulin E11.21 Active 88482044 Problem Benign prostatic hyperplasia with lower urinary tract symptoms N40.1 Active 252168551 Problem Primary osteoarthritis of both knees M17.0 Act asad 775284826 ALLERGIES Allergen (clinical drug ingredient) Drug/Non Drug Allergy do cumented on EMR Reaction Allergy Type Onset Date Status simvastatin Simvastatin(NDC Code:[address]-62) Myalgia Drug Aller gy Active amoxicillin Amoxicillin(NDC Code:[address]-98) Rash Drug Aller gy Active ENCOUNTERS from 1950 to 2020-06-13 Encounter Location Date Provider Diagnosis [facility] [place] [address] May Raj Zepeda Primary osteoarthritis of both knees M17 .0 ; Pre-op evaluation Z01.818 ; Type 2 diabetes mellitus with other diabetic kidney complication E11.29 ; Hypertensive heart disease without heart failure I11.9 ; Benign prostatic hyperplasia with lower urinary tract symptoms N40.1 ; Nocturia R35.1 and Lumbar degenerative disc disease M51.36 IMMUNIZATIONS Vaccine Route Administration Date Status Influenza [...] FOR REFERRAL No Information VITAL SIGNS Weight 259 lbs May, Height 5'8.5" in May, BMI 38.80 kg/m2 May, Heart Rate 75 /min May, Respiratory Rate 18 /min May, Temperature 97.3 degrees Fahrenheit May, Oximetry 97ra May, Blood pressure systolic 146 mm Hg May, Blood pressure diastolic 80 mm Hg May, MEDICATIONS Medication SIG (Take, Route, Frequency, Duration) Notes Start Da te End Date Status Timolol Hemihydrate 0.5 % 1 drop into affected eye Ophthalmic Once a day Active Finasteride 5 MG TAKE ONE TABLET BY MOUTH EVERY DAY for 90 Active TRUEtest Test _ 1 strip In Vitro once daily as needed for 90 day (s) Nov, Active Lisinopril 20 MG TAKE ONE TABLET BY MOUTH EVERY DAY for 90 Active Lincoln 5-325 MG 1 tablet as needed Orally every 6 hrs MDD#4 for 10 day(s) October, Active Vitamin D 25 MCG (1000 UT) 1 tablet Orally Once a day for 30 day(s) Active Latanoprost 0.005 % 1 drop into affected eye in the evening Ophthalmic Once a day Active Fluticasone Propionate 50 MCG/ACT 1 spray in each nost ril Nasally BID for 30 day(s) Apr, Active Verapamil HCl ER 240 MG 1 tablet Orally twice daily for 90 day(s) Active Tolterodine Tartrate 2 MG 2 tablets Orally ONCE A DAY for 90 days Active MetFORMIN HCl ER 500 MG 1 tablet Orally twice daily for 90 day(s) Active Baclofen 20 MG 1 tablet with food or milk O rally every 8 hrs- muscle relaxer for 30 day(s) Active Atorvastatin Calcium 80 MG 1 tablet Orally Once a day for 90 day(s) Active PROCEDURES No Information RESULTS No Results REASON FOR VISIT Patient here for pre op evaluation, he is having planned right TKA with Dr. Webster on 06/19, he did have cardiac clearance with Dr. Steve- but must ungergo stress test this wednesday with him in order to be cleared. MEDICAL (GENERAL) HISTORY Type Description Date Medical [...] Notes Treatment Notes Treatm ent Clinical Notes May, Primary osteoarthritis of both knees (ICD-10 - M 17.0) Cont with [facility] as scheduled. He is aware will need to see cardiology as scheduled. Pt aware and agreeable. May, Pre-op evaluation (ICD-10 - Z01.818) Labs are all okay. COVID test is scheduled for tomorrow. Final cardiac clearance will be per Dr Steve. He medically stable and may proceed with surgery as scheduled. Pt is aware and agreeable. May, Type 2 diabetes mellitus wit h other diabetic kidney complication (ICD-10 - E11.29) He is currently well controlled. Pt agreeable. May, Hypertensive heart disease without heart failure (ICD-10 - I11.9) Cont with cardiology as well. May, Benign prostatic hyperplasia with lower urinary tract symptoms (ICD-10 - N40.1) Cont with urology. May, Nocturia (ICD-10 - R35.1) May, Lumbar degenerative disc disease (ICD-10 - M51.3 6) Much improved, currently doing okay. PLAN OF TREATMENT Medication Medication Name Sig Start Date Stop Date MetFORMIN HCl ER 500 MG 1 tablet Orally twice daily for 90 day(s ) Tolterodine Tartrate 2 MG 2 tablets Orally ONCE A DAY for 90 day s Verapamil HCl ER 240 MG 1 tablet Orally twice daily for 90 day(s ) Treatment Notes Assessment Notes Clinical Notes Primary osteoarthritis of both knees Con t with [facility] as scheduled. He is aware will need to see cardiology as scheduled. Pt aware and agreeable. Pre-op evaluation Labs are all okay. COVID test is scheduled for tomorrow. Final cardiac clearance will be per Dr Steve. He medically stable and may [...] disease Much im proved, currently doing okay. Next Appt Details as scheduled Reason: Provider Name:Raj Zepeda, 01:00:00 PM, [address] [place] [address], [id number], Provider Name:Tong Rogers, 12-20 04:00:00 PM, [address] [facility], 1st Floor, [place], [address], Insurance Providers Payer Name Payer Address Payer Phone Insured Name Patient Relati onship to Insured Coverage Start Date Coverage End Date MEDICARE Part A and B [address] [facility] [phone] [facility] [address] [facility] [address] [id number] N [place]
--- OUTSIDE RECORDS SUMMARY | 2020-08-20 07:03 | CCD ---
Continuity of Care Document (CCD) Created on: 06/17/2020 Quinton White JR External Reference #: [id number] : [id number] Sex: Male Author Author Stress Nuclear/Reg Treadmill , Quinton Wiggins Organization Unknown Address [id number] [place] [address] [place] [address] Phone [phone] Care Team Providers Care Paint Grinder Name Role Phone Raj Zepeda AUTM [phone] Gallo Ramey MD AUTM [phone] Keyshawn Coy MD AUTM [phone] Calvin Polanco MD AUTM [phone] Umesh Ahmadi MD AUTM [phone] Mami Hillman MD AUTM [phone] Paulie Espinoza MD AUTM [phone] Problems Active Problems Provider Date Takotsubo cardiomyopathy RISSA Reed-BC Onset: 05/06/2012 Primary cardiomyopathy RISSA Reed-MARCO Onset: Ventricular fibrillation RISSA Reed-MARCO Onset: 05/06/2012 Benign hypertensive heart disease 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 eart failure RISSA Reed-MARCO Onset: 05/06/2012 Pure hypercholesterolemia RISSA Reed-BC Onset: 05/06/2012 Obesity RISSA Reed-MARCO Onset: 05/06 [...] has an occasional cigar Smoking Status Reviewed: 06/11/20 Patient is a former smoker Pr eviously he would smoke up to one pack per day. Currently has an occasional cigar Exercise Type/Frequency Does housework sporadica lly Exercise Type/Frequency Does yardwork twice a we ek shovel snow, split firewood and maintain wood heat part-time in heating season, raking leaves, mowing with riding mower Exercise Limitations Shortness Of Breath walking long distances Exercise Limitations Joint Pain bilateral k nees Exercise Limitations Chest Discomfort when shove ling snow "felt vibration in chest like a cell phone for several hours after" Allergies, Adverse Reactions, Alerts Active Allergies Reaction Severity Comments Date Amoxicillin hives 08/07/2014 Inactive Allergies NKDA 02/28/2008 Medications Active Medications SIG Qnty Indications Ordering Provide r Date Vitamin D3 125mcg (5000 Ut) Capsul es 1 by mouth every day Unknown 06/10/2020 Metformin HCL ER (Mod) 500mg Tablets ER 24HR 1 by mouth twice a day Raj Zepeda D O 06/10/2020 Tolterodine Tartrate 2mg Tablets 1 by mouth twice a day Calvin Polanco MD 06/10/2020 Atorvastatin Calcium 80mg Tablets 1 by mouth every night at bedtime 90tabs Josue Steve MD 08/02/2016 Finasteride 5mg Tablets 1 by mouth every day Josue Steve MD 08/02/2016 Latanoprost 0.005% Solution 1 gtt [facility] Raj Zepeda DO 08/17/2012 Timolol Maleate 0.5% GFS 1 gt ts qd Raj Zepeda DO 08/17/2012 Lisinopril 20mg Tablets 1 po daily Sumit Atkinson MD 01/27/2012 Verapamil HCL ER 240mg Caps ER 24H R 1 PO bid Panchito Lopez MD 02/28/2008 Immunizations Description No Information Available Vital Signs Date Vital Result Comment 06/11/2020 1:53pm Weight 253.00 lb Height 69.5 inches 5'9.50" BMI (Body Mass Index) 36.8 kg/m2 Heart Rate 72 /min regular Respiratory Rate 16 /min nonlabored BP Systolic Sitting 130 mmHg Ra, large cuff BP Diastolic Sitting 78 mmHg Ra, large cuff 08/01/2019 8:00am Weight 260.00 lb Height 69.5 inches 5'9.50" BMI (Body Mass Index) 37.8 kg/m2 Heart Rate 78 /min Respiratory Rate 16 /min BP Systolic Sitting 114 mmHg Medium cuff, Ra BP Diastolic Sitting 60 mmHg Medium cuff, Ra BP Systolic Lying Down 126 mmHg BP Diastolic Lying Down 62 mmHg Results Test Acquired Date Facility Test [...] 06/05/2020 [facility] Hemoglobin A1c 6.8 Procedures Date Code Description Status 06/17/2020 75824 Treadmill/Pharmacological Monito ring Completed 06/17/2020 97886 Myocardial Perfusion Spect Multi ple Completed 06/11/2020 97289 ECG 12-Lead Completed Medical Devices Description No Information Available Encounters Type Date Location Provider Dx Diagnosis Office Visit 06/11/2020 2:00p Main Office KAUSHAL Mcdowell R06 .02 Shortness of breath R07.2 Precordial pain I11.9 Hypertensive heart disease w ithout heart failure G47.33 Obstructive sleep apnea (erickson lt) (pediatric) R94.31 Abnormal electrocardiogram [ ECG] [EKG] Z01.810 Encounter for preprocedural cardiovascular examination Assessments Date Code Description Provider 06/17/2020 R07.2 Precordial pain Stress Nuclear/R eg Treadmill 06/11/2020 R06.02 Shortness of breath KAUSHAL Mcdowell 06/11/2020 R07.2 Precordial pain KAUSHAL Morales Cha, se 06/11/2020 I11.9 Hypertensive heart disease witho ut heart failure KAUSHAL Mcdowell 06/11/2020 G47.33 Obstructive sleep apnea (adult) (pediatric) KAUSHAL Mcdowell 06/11/2020 R94.31 Abnormal electrocardiogram [ECG] [EKG] KAUSHAL Mcdowell 06/11/2020 Z01.810 Encounter for preprocedural card iovascular examination KAUSHAL Mcdowell Plan of Treatment Future Appointment(s):* 12/10/2020 1:00 pm - KAUSHAL Mcdowell at Main Office 06/11/2020 - KAUSHAL Mcdowell* R06.02 Shortness of breath* Recommendations:* No further evaluation is needed at this time. * R07.2 Precordial pain* Recommendations:* Due to his history and his relatively sedentary lifestyle, stress SPECT ordered for further evaluation prior to cardiac clearance for his upcoming knee surgery. * I11.9 Hypertensive heart disease without heart failure* Recommendations:* Continue lisinopril and verapamil at current dosages. * G47.33 Obstructive sleep apnea (adult) (pediatric)* Recommendations:* Encouraged patient to continue to comply with CPAP therapy. * R94.31 Abnormal electrocardiogram [ECG] [EKG]* Recommendations:* No further evaluation is needed at this time. * Z01.810 Encounter for preprocedural cardiovascular examination* Recommendations:* Patient is cleared to undergo scheduled orthopedic surgery pending the results of his stress test (06/17/20). * All * Follow up:* Follow up in 6 months Functional Status Functional Condition Comment Date Status Independent with all ADL's Activ e Mental Status Description No Information Available Referrals Description No Information Available
--- OUTSIDE RECORDS SUMMARY | 2020-08-20 07:03 | CCD | Continuity of Care Document ---
Author Author Quinton JOSHI ND Organization Unknown Address [address] [place] [address] [place] [address] Phone [phone] Care Team Providers Care Generator Technician Name Role Phone Raj Zepeda DO AUTM [phone] Gallo Ramey MD AUTM [phone] Keyshawn Coy MD AUTM [phone] Calvin Polanco MD AUTM [phone] Umesh Ahmadi MD AUTM [phone] Mami Hillman MD AUTM [phone] Paulie Espinoza MD AUTM [phone] Problems Active Problems Provider Date Takotsubo cardiomyopathy RISSA Reed-BC Onset: 05/06/2012 Primary cardiomyopathy RISSA Reed-MARCO Onset: Ventricular fibrillation RISSA Reed-MARCO Onset: 05/06/2012 Benign hypertensive heart disease 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 eart failure RISSA Reed-BC Onset: 05/06/2012 Pure hypercholesterolemia RISSA Reed-MARCO Onset: [...] 08/02/2016 Latanoprost 0.005% Solution 1 gtt [facility] Raj Zepeda DO 08/17/2012 Timolol [...] 5'9.50" BMI (Body Mass Index) 36.8 kg/m2 08/01/2019 8:00am Weight 260.00 lb Height 69.5 [...] A1c 6.8 Procedures Date Code Description Status 06/11/2020 77404 ECG 12-Lead Completed Medical Devices Description No [...] cardiovascular examination Assessments Date Code Description Provider 06/11/2020 R06.02 Shortness of breath KAUSHAL Mcdowell [...] pm - KAUSHAL Mcdowell at Main Office * 06/17/2020 11:30 am - Stress Nuclear/Reg Treadmill at Main Office 06/11/2020 - KAUSHAL Mcdowell* R06.02 Shortness of breath * R07.2 Precordial pain* New Xrays:* NM Heart Myocardial Perfusion Spect Multiple Studies, Ordered: 06/11/20 * Recommendations:* Due to his history and his relatively anterior lifestyle, stress SPECT ordered for further evaluation prior to cardiac clearance for his upcoming knee surgery. * I11.9 Hypertensive heart disease without heart failure * G47.33 Obstructive sleep apnea (adult) (pediatric) * R94.31 Abnormal electrocardiogram [ECG] [EKG] * Z01.810 Encounter for preprocedural cardiovascular examination * All * Follow up:* Follow up in 6 months Functional Status Functional Condition Comment Date Status Independent with all ADL's Activ e Mental Status Description No Information Available Referrals Description No Information Available
--- OUTSIDE RECORDS SUMMARY | 2020-08-20 07:04 | CCD ---
Author Author [facility] Organization [facility] Address Unknown Phone Unavailable Care Team Providers Care Architectural Draftsman Name Role Phone EVELYNE MENDOZA PA Unavailable Unavailable MCELHERAN, EVELYNE PA Unavailable Unavailable MCELHERAN, EVELYNE PA Unavailable Unavailable MCELHERAN, EVELYNE PA Unavailable Unavailable MCELHERAN, EVELYNE PA Unavailable Unavailable MCELHERAN, EVELYNE PA Unavailable Unavailable MCELHERAN, EVELYNE PA Unavailable Unavailable MCELHERAN, EVELYNE PA Unavailable Unavailable MCELHERAN, EVELYNE PA Unavailable Unavailable MCELHERAN, EVELYNE PA Unavailable Unavailable MCELHERAN, EEVLYNE PA Unavailable Unavailable MCELAN, EVELYNE PA Unavailable Unavailable MCELHERAN, EVELYNE PA Unavailable Unavailable MCELHERAN, EVELYNE PA Unavailable Unavailable MCELHERAN, EVELYNE PA Unavailable Unavailable MCELHERAN, EVELYNE PA Unavailable Unavailable MCELHERAN, EVELYNE PA Unavailable Unavailable MCELHERAN, EVELYNE PA Unavailable Unavailable MCELHERAN, EVELYNE PA Unavailable Unavailable MCELHERAN, EVELYNE PA Unavailable Unavailable MCELAN, EVELYNE PA Unavailable Unavailable MCELHERAN, EVELYNE PA Unavailable Unavailable MCELHERAN, EVELYNE PA Unavailable Unavailable MCELHERAN, EVELYNE PA Unavailable Unavailable MCELHERAN, EVELYNE PA Unavailable Unavailable EVELYNE MENDOZA Unavailable Unavailable MCEEVELYNE CAVAZOS Unavailable Unavailable EVELYNE MENDOZA Unavailable Unavailable Fish, [facility], PA-C Unavailable Unavailabl e Fish, [facility], PA-C Unavailable Unavailabl e Fish, [facility], PA-C Unavailable Unavailabl e Fish, [facility], PA-C Unavailable Unavailabl e Fish, [facility], PA-C Unavailable Unavailabl e Fish, [facility], PA-C Unavailable Unavailabl e Fish, [facility], PA-C Unavailable Unavailabl e Fish, [facility], PA-C Unavailable Unavailabl e Fish, [facility], PA-C Unavailable Unavailabl e Fish, [facility], PA-C Unavailable Unavailabl e Fish, [facility], PA-C Unavailable Unavailabl e Fish, [facility], PA-C Unavailable Unavailabl e Fish, [facility], PA-C Unavailable Unavailabl e Fish, [facility], PA-C Unavailable Unavailabl e Fish, [facility], PA-C Unavailable Unavailabl e Fish, [facility], PA-C Unavailable Unavailabl e Fish, [facility], PA-C Unavailable Unavailabl e Fish, [facility], PA-C Unavailable Unavailabl e Fish, [facility], PA-C Unavailable Unavailabl e Fish, [facility], PA-C Unavailable Unavailabl e Fish, [facility], PA-C Unavailable Unavailabl e Fish, [facility], PA-C Unavailable Unavailabl e Fish, [facility], PA-C Unavailable Unavailabl e Fish, [facility], PA-C Unavailable Unavailabl e Fish, [facility], PA-C Unavailable Unavailabl e Fish, [facility], PA-C Unavailable Unavailabl e Fish, [facility], PA-C Unavailable Unavailabl e Fish, [facility], PA-C Unavailable Unavailabl e Fish, [facility], PA-C Unavailable Unavailabl e Fish, Naya Colette MPAS, PA-C Unavailable Unavailabl e FishNaya MPAS, PA-C Unavailable Unavailabl e FishNaya MPAS, PA-C Unavailable Unavailabl e Fish, Naya Colette MPAS, PA-C Unavailable Unavailabl e HERNADEZ E LINDA SOUZA Unavailable Unavailable HERNADEZ E LINDA SOUZA Unavailable Unavailable HERNADEZ E LINDA SOUZA Unavailable Unavailable HERNADEZ E LINDA SOUZA Unavailable Unavailable HERNADEZ E LINDA SOUZA Unavailable Unavailable HERNADEZ, E LINDA SOUZA Unavailable Unavailable HERNADEZ E LINDA SOUZA Unavailable Unavailable HERNADEZ E LINDA SOUZA Unavailable Unavailable HERNADEZ E LINDA SOUZA Unavailable Unavailable HERNADEZ E LINDA SOUZA Unavailable Unavailable HERNADEZ, E LINDA SOUZA Unavailable Unavailable HERNADEZ, E LINDA SOUZA Unavailable Unavailable HERNADEZ, E LINDA SOUZA Unavailable Unavailable HERNADEZ, E LINDA SOUZA Unavailable Unavailable HERNADEZ, E LINDA SOUZA Unavailable Unavailable HERNADEZ, E LINDA SOUZA Unavailable Unavailable HERNADEZ, E LINDA SOUZA Unavailable Unavailable HERNADEZ, E LINDA SOUZA Unavailable Unavailable HERNADEZ, E LINDA SOUZA Unavailable Unavailable HERNADEZ, E LINDA SOUZA Unavailable Unavailable HERNADEZ, E LINDA SOUZA Unavailable Unavailable HERNADEZ, E LINDA SOUZA Unavailable Unavailable HERNADEZ, E LINDA SOUZA Unavailable Unavailable HERNADEZ E LINDA SOUZA Unavailable Unavailable HERNADEZ E LINDA SOUZA Unavailable Unavailable HERNADEZ E LINDA SOUZA Unavailable Unavailable HERNADEZ E LINDA SOUZA Unavailable Unavailable HERNADEZ E LINDA SOUZA Unavailable Unavailable HERNADEZ, E LINDA SOUZA Unavailable Unavailable HERNADEZ, E LINDA SOUZA Unavailable Unavailable HERNADEZ, E LINDA SOUZA Unavailable Unavailable HERNADEZ, E LINDA SOUZA Unavailable Unavailable HERNADEZ E LINDA SOUZA Unavailable Unavailable HERNADEZ E LINDA SOUZA Unavailable Unavailable HERNADEZ E LINDA SOUZA Unavailable Unavailable HERNADEZ E LINDA SOUZA Unavailable Unavailable HERNADEZ E LINDA SOUZA Unavailable Unavailable HERNADEZ E LINDA SOUZA Unavailable Unavailable HERNADEZ E LINDA SOUZA Unavailable Unavailable HERNADEZ E LINDA SOUZA Unavailable Unavailable HERNADEZ E LINDA SOUZA Unavailable Unavailable HERNADEZ E LINDA SOUZA Unavailable Unavailable HERNADEZ E LINDA SOUZA Unavailable Unavailable HERNADEZ E LINDA SOUZA Unavailable Unavailable HERNADEZ E LINDA SOUZA Unavailable Unavailable HERNADEZ E LINDA SOUZA Unavailable Unavailable HERNADEZ E LINDA SOUZA Unavailable Unavailable HERNADEZ E LINDA SOUZA Unavailable Unavailable HERNADEZ E LINDA SOUZA Unavailable Unavailable HERNADEZ E LINDA SOUZA Unavailable Unavailable HERNADEZ E LINDA SOUZA Unavailable Unavailable HERNADEZ E LINDA SOUZA Unavailable Unavailable HERNADEZ E LINDA SOUZA Unavailable Unavailable HERNADEZ, E LINDA SOUZA Unavailable Unavailable HERNADEZPham MD Unavailable Unavailable HERNADEZ, E LINDA MD Unavailable Unavailable Pham HERNADEZ MD Unavailable Unavailable VaneenenaamRobbin MD Unavailable Unavailable VaneenenaamRobbin MD Unavailable Unavailable VaneenenaamRobbin MD Unavailable Unavailable VaneenenaamRobbin MD Unavailable Unavailable VaneenenaamRobbin MD Unavailable Unavailable VanRobbin reardon MD Unavailable Unavailable VanRobbin reardon MD Unavailable Unavailable VaneensohailamRobbin MD Unavailable Unavailable Vaneensohailam, Robbin Apodaca MD Unavailable Unavailable VaneensohailamRobbin MD Unavailable Unavailable Vaneenenaam, Robbin Apodaca MD Unavailable Unavailable VaneensohailamRobbin MD Unavailable Unavailable Vanalexys, Robbin Apodaca MD Unavailable Unavailable VanRobbin reardon MD Unavailable Unavailable Vanbcam, Robbin Apodaca MD Unavailable Unavailable Vanbcam, Robbin Apodaca MD Unavailable Unavailable Vanbcam, Robbin Apodaca MD Unavailable Unavailable VanRobbin reardon MD Unavailable Unavailable Robbin Espinoza MD Unavailable Unavailable VanRobbin reardon MD Unavailable Unavailable VanRobbin reardon MD Unavailable Unavailable VanRobbin reardon MD Unavailable Unavailable VanRobbin reardon MD Unavailable Unavailable VanRobbin reardon MD Unavailable Unavailable Robbin Espinoza MD Unavailable Unavailable VanRobbin reardon MD Unavailable Unavailable Robbin Espinoza MD Unavailable Unavailable VanRobbin reardon MD Unavailable Unavailable VanRobbin reardon MD Unavailable Unavailable VanRobbin reardon MD Unavailable Unavailable Robbin Espinoza MD Unavailable Unavailable VanRobbin reardon MD Unavailable Unavailable VanRobbin reardon MD Unavailable Unavailable VanRobbin reardon MD Unavailable Unavailable VanRobbin reardon MD Unavailable Unavailable VanRobbin reardon MD Unavailable Unavailable Robbin Espinoza MD Unavailable Unavailable Robbin Espinoza MD Unavailable Unavailable Robbin Espinoza MD Unavailable Unavailable Robbin Espinoza MD Unavailable Unavailable VanRobbin reardon MD Unavailable Unavailable Robbin Espinoza MD Unavailable Unavailable Sandhya Musa MD Unavailable Unavailable Sandhya Musa MD Unavailable Unavailable Sandhya Musa MD Unavailable Unavailable Sandhya Musa MD Unavailable Unavailable Sandhya Musa MD Unavailable Unavailable Sandhya Musa MD Unavailable Unavailable Ann Polanco, Sandhya SOUZA Unavailable Unavailable Ann Polanco, Sandhya SOUZA Unavailable Unavailable Ann Polanco, Sandhya SOUZA Unavailable Unavailable Ann Polanco, Sandhya SOUZA Unavailable Unavailable Ann Polanco, Sandhya SOUZA Unavailable Unavailable Ann Polanco, Sandhya SOUZA Unavailable Unavailable Ann Polanco, Sandhya SOUZA Unavailable Unavailable Ann Polanco, Sandhya SOUZA Unavailable Unavailable Ann Polanco, Sandhya SOUZA Unavailable Unavailable Ann Polanco, Sandhya SOUZA Unavailable Unavailable Ann Polanco, Sandhya SOUZA Unavailable Unavailable Ann Polanco, Sandhya SOUZA Unavailable Unavailable Ann Polanco, Sandhya SOUZA Unavailable Unavailable Ann Polanco, Sandhya SOUZA Unavailable Unavailable Ann Polanco, Sandhya SOUZA Unavailable Unavailable Ann Polanco, Sandhya SOUZA Unavailable Unavailable Ann Polanco, Sandhya SOUZA Unavailable Unavailable Ann Polanco, Sandhya SOUZA Unavailable Unavailable Ann Polanco, Sandhya SOUZA Unavailable Unavailable Ann Polanco, Sandhya SOUZA Unavailable Unavailable Ann Polanco, Sandhya SOUZA Unavailable Unavailable Ann Polanco, Sandhya SOUZA Unavailable Unavailable Ann Polanco, Sandhya SOUZA Unavailable Unavailable Ann Polanco, Sandhya SOUZA Unavailable Unavailable Ann Polanco, Sandhya SOUZA Unavailable Unavailable Ann Polanco, Sandhya SOUZA Unavailable Unavailable Ann Polanco, Sandhya SOUZA Unavailable Unavailable Ann Polanco, Sandhya SOUZA Unavailable Unavailable Ann Polanco, Sandhya SOUZA Unavailable Unavailable Ann Polanco, Sandhya SOUZA Unavailable Unavailable Ann Polanco, Sandhya SOUZA Unavailable Unavailable Ann Polanco, Sandhya SOUZA Unavailable Unavailable Ann Polanco, Sandhya SOUZA Unavailable Unavailable Ann Polanco, Sandhya SOUZA Unavailable Unavailable Ann Polanco, Sandhya SOUZA Unavailable Unavailable Ann Polanco, Sandhya SOUZA Unavailable Unavailable Ann Polanco, Sandhya SOUZA Unavailable Unavailable Ann Polanco, Sandhya SOUZA Unavailable Unavailable Ann Polanco, Sandhya SOUZA Unavailable Unavailable Ann Polanco, Sandhya SOUZA Unavailable Unavailable Ann Polanco, Sandhya SOUZA Unavailable Unavailable Ann Polanco, Sandhya SOUZA Unavailable Unavailable Ann Polanco, Sandhya SOUZA Unavailable Unavailable Ann Polanco, Sandhya SOUZA Unavailable Unavailable Ann Polanco, Sandhya SOUZA Unavailable Unavailable Ann PolancoSandhya MD Unavailable Unavailable Ann Polanco, Sandhya SOUZA Unavailable Unavailable Ann PolancoSandhya MD Unavailable Unavailable Ann Polanco, Sandhya SOUZA Unavailable Unavailable Ann Polanco, Sandhya SOUZA Unavailable Unavailable Ann Polanco, Sandhya MD Unavailable Unavailable Ann Polanco, Sandhya MD Unavailable Unavailable Ann Polanco, Sandhya MD Unavailable Unavailable Ann Polanco, Sandhya MD Unavailable Unavailable Ann Polanco, Sandhya MD Unavailable Unavailable Ann Polanco, Sandhya MD Unavailable Unavailable Ann Polanco, Sandhya MD Unavailable Unavailable Ann Polanco, Sandhya MD Unavailable Unavailable Ann Polanco, Sandhya MD Unavailable Unavailable Ann Polanco, Sandhya MD Unavailable Unavailable Ann Polanco, Sandhya MD Unavailable Unavailable Ann Polanco, Sandhya MD Unavailable Unavailable Ann Polanco, Sandhya MD Unavailable Unavailable Ann Polanco, Sandhya MD Unavailable Unavailable Ann Polanco, Sandhya MD Unavailable Unavailable Ann Polanco, Sandhya MD Unavailable Unavailable Ann Polanco, Sandhya MD Unavailable Unavailable Ann Polanco, Sandhya MD Unavailable Unavailable Ann Polanco, Sandhya MD Unavailable Unavailable MADELYN, L LILLY PA Unavailable Unavailable MADELYN, L LILLY PA Unavailable Unavailable MADELYN, L LILLY PA Unavailable Unavailable MADELYN, L LILLY PA Unavailable Unavailable MADELYN, L LILLY PA Unavailable Unavailable MADELYN, L LILLY PA Unavailable Unavailable MADELYN, L LILLY PA Unavailable Unavailable MADELYN, L LILLY PA Unavailable Unavailable MADELYN, L LILLY PA Unavailable Unavailable MADELYN, L LILLY PA Unavailable Unavailable MADELYN, L LILLY PA Unavailable Unavailable MADELYN, L LILLY PA Unavailable Unavailable Endy Ahmadi MD Unavailable Unavailable Endy Ahmadi MD Unavailable Unavailable Endy Ahmadi MD Unavailable Unavailable Endy Ahmadi MD Unavailable Unavailable Endy Ahmadi MD Unavailable Unavailable AhmadiEndy hernandez MD Unavailable Unavailable AhmadiEndy hernandez MD Unavailable Unavailable AhmadiEndy hernandez MD Unavailable Unavailable AhmadiEndy hernandez MD Unavailable Unavailable AhmadiEndy hernandez MD Unavailable Unavailable Endy Ahmadi MD Unavailable Unavailable Endy Ahmadi MD Unavailable Unavailable Endy Ahmadi MD Unavailable Unavailable Endy Ahmadi MD Unavailable Unavailable Endy Ahmadi MD Unavailable Unavailable Endy Ahmadi MD Unavailable Unavailable Endy Ahmadi MD Unavailable Unavailable Endy Ahmadi MD Unavailable Unavailable Endy Ahmadi MD Unavailable Unavailable Endy Ahmadi MD Unavailable Unavailable Endy Ahmadi MD Unavailable Unavailable Endy Ahmadi MD Unavailable Unavailable Endy Ahmadi MD Unavailable Unavailable Endy Ahmadi MD Unavailable Unavailable Endy Ahmadi MD Unavailable Unavailable Ahmadi, L Umesh MD Unavailable Unavailable Ahmadi, L Umesh MD Unavailable Unavailable Ahmadi, L Umesh MD Unavailable Unavailable Ahmadi, L Umesh MD Unavailable Unavailable Ahmadi, L Umesh MD Unavailable Unavailable Ahmadi, L Umesh MD Unavailable Unavailable Ahmadi, L Umesh MD Unavailable Unavailable Ahmadi, L Umesh MD Unavailable Unavailable Ahmadi, L Umesh MD Unavailable Unavailable Ahmadi, L Umesh MD Unavailable Unavailable Ahmadi, L Umesh MD Unavailable Unavailable Ahmadi, L Umesh MD Unavailable Unavailable Ahmadi, L Umesh MD Unavailable Unavailable Ahmadi, L Umesh MD Unavailable Unavailable Ahmadi, L Umesh MD Unavailable Unavailable Ahmadi, L Umesh MD Unavailable Unavailable Ahmadi, L Umesh MD Unavailable Unavailable Ahmadi, L Umesh MD Unavailable Unavailable Ahmadi, L Umesh MD Unavailable Unavailable Ahmadi, L Umesh MD Unavailable Unavailable Ahmadi, L Umesh MD Unavailable Unavailable Ahmadi, L Umesh MD Unavailable Unavailable Ahmadi, L Umesh MD Unavailable Unavailable Re-disclosure Warning The records that you are about to access may contain information from federally-assisted alcohol or drug abuse programs. If such information is present, then the following federally mandated warning applies: This information has been disclosed to you from records protected by federal confidentiality rules (42 CFR part 2). The federal rules prohibit you from making any further disclosure of this information unless further disclosure is expressly permitted by the written consent of the person to whom it pertains or as otherwise permitted by 42 CFR part 2. A general authorization for the release of medical or other information is NOT sufficient for this purpose. The Federal rules restrict any use of the information to criminally investigate or prosecute any alcohol or drug abuse patient.The records that you are about to access may contain highly sensitive health information, the redisclosure of which is protected by Article 27-F of the [facility] Public Health law. If you continue you may have access to information: Regarding HIV / AIDS; Provided by facilities licensed or operated by the [facility] Office of Mental Health; or Provided by the [facility] Office for People With Developmental Disabilities. If such information is present, then the following [facility] mandated warning applies: This information has been disclosed to you from confidential records which are protected by state law. State law prohibits you from making any further disclosure of this information without the specific written consent of the person to whom it pertains, or as otherwise permitted by law. Any unauthorized further disclosure in violation of state law may result in a fine or retirement sentence or both. A general authorization for the release of medical or other information is NOT sufficient authorization for further disc losure. Allergies and Adverse Reactions Type Description Substance Reaction Status Data Source(s ) Drug allergy Amoxicillin Amoxicillin Rash Active eCW1 ([facility]) Drug allergy Simvastatin Simvastatin Myalgia Active eCW1 ([facility]) Family History Family Member Name Family Member Gender Family Member Status Date o f Status Description Data Source(s) Unknown Unknown Problem [facility]) Unknown Female Problem MED[facility] ([facility] [place]) Unknown Female Unknown Unknown Problem MEDENT ([facility]) Unknown Unknown Problem MEDENT ([facility]) mother Encounters Encounter Providers Location Date Indications Data Source(s ) Outpatient [address] [facility] [id number] 08/12/2020 12:00:00 AM EST eCW1 ([facility]) Office Visit Attender: EVELYNE EASLEY Physical Therapy 08/09/2020 07:00:00 AM EST MEDENT ([facility]) Unknown [address] [facility] [address] 08/09/2020 12:00:00 AM EST eCW1 ([facility]) Unknown [address] [facility] [id number] 08/06/2020 12:00:00 AM EST eCW1 ([facility]) Unknown [address] [facility] [address] 07/09/2020 12:00:00 AM EST eCW1 ([facility]) OFFICE OUTPATIENT VISIT 15 MINUTES Attender: Colette DE LA ROSA PA-C Physical Therapy 06/17/2020 09:00:00 AM EST MEDENT ([facility]) Outpatient [address] [facility] [id number] 06/13/2020 12:00:00 AM EST eCW1 ([facility]) Outpatient Attender: LILLY EASLEY Main Office 06/11/2020 0 1:00:00 PM EST MEDENT ([facility]) Outpatient Attender: Sandhya Salguero/ [facility] 04/19/2020 03:30:00 PM EDT MEDENT ([facility]) Outpatient [address] [facility] [place] [address] 04/05/2020 12:00:00 AM EDT eCW1 ([facility]) Outpatient Attender: Robbin Espinoza MD Physical Therap y 2020 11:00:00 AM EDT MEDENT ([facility]) [address] [place] [address] 03/07/2020 12:00:00 AM EDT eCW1 ([facility]) Office Visit Attender: BAKAIR LawsonC Physical Therapy 01/31/2020 09:45:00 AM EDT MEDENT ([facility]) Office Visit Attender: BAKARI LawsonC Physical Therapy 01/19/2020 10:00:00 AM EDT MEDENT ([facility]) Office Visit Attender: BAKARI LawsonC Physical Therapy 01/12/2020 09:45:00 AM EDT MEDENT ([facility]) Outpatient Attender: Colette DE LA ROSA PA-C Physical Therapy 12/22/2019 03:30:00 PM EDT MEDENT ([facility]) [facility] Dermatology [address] [place] [address] 11/14/2019 12:00:00 AM EDT [facility]CW1 [facility] [address] [address] 11/09/2019 12:00:00 AM EDT eCW1 ([facility]) Outpatient Attender: Umesh Ahmadi MD Physical Therapy 11/01/2019 0 2:15:00 PM EDT MEDENT ([facility]) [address] [place] [address] 10/31/2019 12:00:00 AM EDT eCW1 ([facility] [address] [place] [address] 10/23/2019 12:00:00 AM EDT eCW1 ([facility]) [facility] [place] [address] [facility] [place] [address] 10/23/2019 12:00:00 AM EDT eCW1 ([facility]) [facility] [place] [address] [facility] [place] [address] 10/11/2019 12:00:00 AM EDT eCW1 ([facility]) [facility] Stanley [address] [facility] [place] [address] 08/18/2019 12:00:00 AM EST eCW1 ([facility]) [facility] [address] [facility] [place] [address] 08/14/2019 12:00:00 AM EST eCW1 ([facility]) [facility] Dermatology Center [address] [place] [phone] 08/09/2019 12:00:00 AM EST eCW1 ([facility]) [facility] Dermatology [address] [place] [phone] 08/09/2019 12:00:00 AM EST eCW1 ([facility]) [facility] [address] [facility] [place] [address] 08/07/2019 12:00:00 AM EST eCW1 ([facility]) Outpatient Attender: LINDA HERNADEZ MD Main Office 08/01/2019 11:15:00 AM EST MEDENT ([facility]) [facility] Dermatology [address] [place] [phone] 07/21/2019 12:00:00 AM EST eCW1 ([facility]) [facility] [place] [address] [facility] [place] [address] 07/17/2019 12:00:00 AM EST eCW1 ([facility]) [facility] [address] [facility] [place] [address] 07/13/2019 12:00:00 AM EST eCW1 ([facility]) [address], [facility] [address] 07/13/2019 12:00:00 AM EST eCW1 ([facility]) Medications Medication Brand Name Start Date Product Form Dose Route Admi nistrative Instructions Pharmacy Instructions Status Indications Reaction Description Data Source(s) Mupirocin 0.02 MG/MG Topical Ointment Mupirocin 08/06/2020 12:00:00 AM EST active MEDENT ([facility] chlorhexidine gluconate 40 MG/ML Medicated Liquid Soap [Hibi clens] Hibiclens 08/06/2020 12:00:00 AM EST active MEDENT ([facility] Sulfamethoxazole 800 MG / Trimethoprim 160 MG Oral Tab let 800-160 mg SULFAMETHOXAZOLE/TRIMETHOPRIM 07/10/2020 12:00:00 AM EST tablet 20 TAKE ONE TABLET BY MOUTH TWICE A DAY TAKE ONE TABLET BY MOUTH TWICE A DAY SOLD: 07/11/2020 [facility] Sulfamethoxazole 800 MG / Trimethoprim 160 MG Oral Tab let 800-160 mg SULFAMETHOXAZOLE/TRIMETHOPRIM 07/10/2020 12:00:00 AM EST tablet 20 TAKE ONE TABLET BY MOUTH TWICE A DAY TAKE ONE TABLET BY MOUTH TWICE A DAY SOLD: 07/27/2020 [facility] Sulfamethoxazole 800 MG / Trimethoprim 160 MG Oral Tablet [B actrim] Bactrim DS 07/10/2020 12:00:00 AM EST ORAL active MEDENT ([facility]) 500 mg 07/04/2020 12:00:00 AM EST tablet extended release 24 hr 180 TAKE ONE TABLET BY MOUTH TWICE A DAY WITH A MEAL TAKE ONE TABLET BY MOUTH TWICE A DAY WITH A MEAL SOLD: 07/05/2020 [facility] 240 mg 07/04/2020 12:00:00 AM EST tablet extended release 180 TAKE ONE TABLET BY MOUTH TWICE A DAY TAKE ONE TABLET BY MOUTH TWICE A DAY SOLD: 07/05/2020 [facility] Mupirocin 0.02 MG/MG Topical Ointment [Bactroban] Bactroban 06/17/2020 12:00:00 AM EST active MEDENT ([facility]) chlorhexidine gluconate 40 MG/ML Medicated Liquid Soap [Hibi clens] Hibiclens 06/17/2020 12:00:00 AM EST active MEDENT ([facility] Sulfamethoxazole 800 MG / Trimethoprim 160 MG Oral Tablet [B actrim] Bactrim DS 06/17/2020 12:00:00 AM EST ORAL active MEDENT ([facility]) 2 % 06/17/2020 12:00:00 AM EST ointment 22 APPLY A PEA SIZED AMOUNT TO NASAL PASSAGES THREE TIMES A DAY FOR 5 DAYS BEFORE SURGERY APPLY A PEA SIZED AMOUNT TO NASAL PASSAGES THREE TIMES A DAY FOR 5 DAYS BEFORE SURGERY SOLD: 06/18/2020 [facility] Sulfamethoxazole 800 MG / Trimethoprim 160 MG Oral Tab let 800-160 mg SULFAMETHOXAZOLE/TRIMETHOPRIM 06/17/2020 12:00:00 AM EST tablet 20 TAKE ONE TABLET BY MOUTH TWICE A DAY TAKE ONE TABLET BY MOUTH TWICE A DAY SOLD: 06/18/2020 [facility] Cholecalciferol 5000 UNT Oral Capsule Vitamin D3 06/10/2020 12:00:00 AM EST ORAL active [facility] ([facility]) Metformin HCL ER (Mod) Metformin HCL ER (Mod) 06/10/2020 12:00:00 AM EST ORAL active [facility] ([facility]) tolterodine tartrate 2 MG Oral Tablet Tolterodine Tartrate 1 08/11/2019 12:00:00 AM EST ORAL active [facility] ([facility]) Sulfamethoxazole 800 MG / Trimethoprim 160 MG Oral Tablet [B actrim] Bactrim DS 04/19/2020 12:00:00 AM EDT ORAL active [facility] ([facility]) Sulfamethoxazole 800 MG / Trimethoprim 160 MG Oral Tab let 800-160 mg SULFAMETHOXAZOLE/TRIMETHOPRIM 04/19/2020 12:00:00 AM EDT tablet 14 TAKE ONE TABLET BY MOUTH TWO TIMES A DAY FOR 7 DAYS TAKE ONE TABLET BY MOUTH TWO TIMES A DAY FOR 7 DAYS SOLD: 04/20/2020 [facility] 0.5 % 04/09/2020 12:00:00 AM EDT gel forming solution 5 INSTILL ONE DROP INTO EACH EYE EVERY MORNING INSTILL ONE DROP INTO EACH EYE EVERY MORNING SOLD: 04/10/2020 [facility] 0.5 % 04/09/2020 12:00:00 AM EDT gel forming solution 10 INSTILL ONE DROP INTO EACH EYE EVERY MORNING INSTILL ONE DROP INTO EACH EYE EVERY MORNING SOLD: 07/28/2020 [facility] 0.5 % 04/09/2020 12:00:00 AM EDT gel forming solution 10 INSTILL ONE DROP INTO EACH EYE EVERY MORNING INSTILL ONE DROP INTO EACH EYE EVERY MORNING SOLD: 05/20/2020 [facility] 2 mg 04/05/2020 12:00:00 AM EDT tablet 180 TAKE TWO TABLETS BY MOUTH EVERY DAY TAKE TWO TABLETS BY MOUTH EVERY DAY SOLD: 04/08/2020 [facility] 2 mg 04/05/2020 12:00:00 AM EDT tablet 180 TAKE TWO TABLETS BY MOUTH EVERY DAY TAKE TWO TABLETS BY MOUTH EVERY DAY SOLD: 07/27/2020 [facility] 500 mg 04/05/2020 12:00:00 AM EDT tablet extended release 24 hr 180 TAKE ONE TABLET BY MOUTH TWICE A DAY TAKE ONE TABLET BY MOUTH TWICE A DAY SOLD: 04/08/2020 [facility] 80 mg 02/22/2020 12:00:00 AM EDT tablet 90 TAKE ONE TABLET BY MOUTH EVERY DAY TAKE ONE TABLET BY MOUTH EVERY DAY SOLD: 05/27/2020 [facility] atorvastatin 80 MG Oral Tablet ATORVASTATIN CALCIUM 02/22/2020 1 2:00:00 AM EDT tablet 90 TAKE ONE TABLET BY MOUTH EVERY D AY TAKE ONE TABLET BY MOUTH EVERY DAY SOLD: 02/26/2020 [facility] 2 ML Sodium Hyaluronate 10 MG/ML Prefilled Syringe [Euflexxa ] Euflexxa 01/12/2020 12:00:00 AM EDT [facility] Finasteride 5 MG Oral Tablet FINASTERIDE 01/08/2020 12:00:00 AM EDT ta blet 90 TAKE ONE TABLET BY MOUTH EVERY DAY TAKE ONE TABLET BY MOUTH EVERY DAY SOLD: 04/08/2020 [facility] 20 mg 01/08/2020 12:00:00 AM EDT tablet 90 TAKE ONE TABLET BY MOUTH EVERY DAY TAKE ONE TABLET BY MOUTH EVERY DAY SOLD: 01/08/2020 [facility] 20 mg 01/08/2020 12:00:00 AM EDT tablet 90 TAKE ONE TABLET BY MOUTH EVERY DAY TAKE ONE TABLET BY MOUTH EVERY DAY SOLD: 04/08/2020 [facility] Finasteride 5 MG Oral Tablet FINASTERIDE 01/08/2020 12:00:00 AM EDT ta blet 90 TAKE ONE TABLET BY MOUTH EVERY DAY TAKE ONE TABLET BY MOUTH EVERY DAY SOLD: 07/11/2020 [facility] Finasteride 5 MG Oral Tablet FINASTERIDE 01/08/2020 12:00:00 AM EDT ta blet 90 TAKE ONE TABLET BY MOUTH EVERY DAY TAKE ONE TABLET BY MOUTH EVERY DAY SOLD: 01/08/2020 [facility] 20 mg 01/08/2020 12:00:00 AM EDT tablet 90 TAKE ONE TABLET BY MOUTH EVERY DAY TAKE ONE TABLET BY MOUTH EVERY DAY SOLD: 07/11/2020 [facility] 100 mg 11/02/2019 12:00:00 AM EDT capsule 60 TAKE TWO CAPSULES BY MOUTH TWICE A DAY: EVERY MORNING AND EVERY EVENING TAKE TWO CAPSULES BY MOUTH TWICE A DAY: EVERY MORNING AND EVERY EVENING SOLD: 01/28/2020 [facility] 100 mg 11/02/2019 12:00:00 AM EDT capsule 60 TAKE TWO CAPSULES BY MOUTH TWICE A DAY: EVERY MORNING AND EVERY EVENING TAKE TWO CAPSULES BY MOUTH TWICE A DAY: EVERY MORNING AND EVERY EVENING SOLD: 11/04/2019 [facility] gabapentin 100 MG Oral Capsule Gabapentin 11/01/2019 12:00:00 AM EDT active [facility] ([facility]) Acetaminophen 325 MG / Hydrocodone Keli trate 5 MG Oral Tablet [Fairview] [place] 5- 325 MG [place] 5-325 MG 10/31/2019 12:00:00 AM EDT 1.0 {tablet_as_needed} active [place] 5-325 MG eCW1 ([facility]) Acetaminophen 325 MG / Hydrocodone Keli trate 5 MG Oral Tablet [[place]view] [place] 5- 325 MG [place] 5-325 MG 10/31/2019 12:00:00 AM EDT 1.0 {tablet_as_needed} active [place] 5-325 MG eCW1 ([facility]) Acetaminophen 325 MG / Hydrocodone Keli trate 5 MG Oral Tablet [[place]view] [place] 5- 325 MG [place] 5-325 MG 10/31/2019 12:00:00 AM EDT 1.0 {tablet_as_needed} active [place] 5-325 MG eCW1 ([facility]) [place]view 5-325 MG UNK 10/31/2019 12:00:00 AM EDT 1.0 {tablet_as _needed} active [place] 5-325 MG eCW1 ([facility]) Acetaminophen 325 MG / Hydrocodone Keli trate 5 MG Oral Tablet [[place]] [place] 5- 325 MG [place] 5-325 MG 10/31/2019 12:00:00 AM EDT 1.0 {tablet_as_needed} active [place] 5-325 MG eCW1 ([facility]) 5-325 mg 10/31/2019 12:00:00 AM EDT tablet 40 TAKE ONE TABLET BY MOUTH EVERY 6 HOURS NEEDED, MAXIMUM DAILY DOSE = FOUR TABLETS TAKE ONE TABLET BY MOUTH EVERY 6 HOURS NEEDED, MAXIMUM DAILY DOSE = FOUR TABLETS SOLD: 11/04/2019 [facility] Acetaminophen 325 MG / Hydrocodone Keli trate 5 MG Oral Tablet [[place]] [place] 5- 325 MG [place] 5-325 MG 10/31/2019 12:00:00 AM EDT a ctive 1 tablet as needed eCW1 ([facility]) Acetaminophen 325 MG / Hydrocodone Keli trate 5 MG Oral Tablet [[place]] [place] 5- 325 MG [place] 5-325 MG 10/31/2019 12:00:00 AM EDT 1.0 {tablet_as_needed} active [place] 5-325 MG eCW1 ([facility]) 5-325 mg 10/28/2019 12:00:00 AM EDT tablet 15 TAKE ONE TABLET BY MOUTH THREE TIMES A DAY NEEDED FOR PAIN , MAXIMUM DAILY DOSE = 3 TABLETS TAKE ONE TABLET BY MOUTH THREE TIMES A DAY NEEDED FOR PAIN , MAXIMUM DAILY DOSE = 3 TABLETS SOLD: 10/28/2019 [facility] Acetaminophen 325 MG / Hydrocodone Bitartrate 5 MG Oral Tabl et [facility] 10/28/2019 12:00:00 AM EDT completed [facility] ([facility] ) Naproxen 375 MG Oral Tablet Naproxen 375 MG 10/23/2019 12:00:00 AM EDT active 1 tablet with food or milk a s needed eCW1 ([facility]) 375 mg 10/23/2019 12:00:00 AM EDT tablet 60 TAKE ONE TABLET BY MOUTH EVERY 12 HOURS NEEDED WITH FOOD OR MILLK TAKE ONE TABLET BY MOUTH EVERY 12 HOURS NEEDED WITH FOOD OR MILLK SOLD: 10/23/2019 [facility] 20 mg 10/23/2019 12:00:00 AM EDT tablet 90 TAKE ONE TABLET BY MOUTH EVERY 8 HOURS WITH FOOD OR MILK TAKE ONE TABLET BY MOUTH EVERY 8 HOURS W ITH FOOD OR MILK SOLD: 10/23/2019 [facility] Baclofen 20 MG Oral Tablet Baclofen 20 MG 10/23/2019 12:00:00 AM EDT active 1 tablet with food or milk [facility] ([facility]) 4 mg 10/19/2019 12:00:00 AM EDT capsule,extended releas e 24hr 30 TAKE ONE CAPSULE BY MOUTH EVERY DAY TAKE ONE CAPSULE BY MOUTH EVERY DAY SOLD: 02/06/2020 [facility] 4 mg 10/19/2019 12:00:00 AM EDT capsule,extended releas e 24hr 30 TAKE ONE CAPSULE BY MOUTH EVERY DAY TAKE ONE CAPSULE BY MOUTH EVERY DAY SOLD: 10/20/2019 [facility] 4 mg 10/19/2019 12:00:00 AM EDT capsule,extended releas e 24hr 30 TAKE ONE CAPSULE BY MOUTH EVERY DAY TAKE ONE CAPSULE BY MOUTH EVERY DAY SOLD: 03/07/2020 [facility] 4 mg 10/19/2019 12:00:00 AM EDT capsule,extended releas e 24hr 30 TAKE ONE CAPSULE BY MOUTH EVERY DAY TAKE ONE CAPSULE BY MOUTH EVERY DAY SOLD: 11/28/2019 [facility] 24 HR tolterodine tartrate 4 MG Extended Release Oral Capsule Tolterodine Tartrate ER 10/19/2019 12:00:00 AM EDT ORAL active [facility] ([facility]) 4 mg 10/19/2019 12:00:00 AM EDT capsule,extended releas e 24hr 30 TAKE ONE CAPSULE BY MOUTH EVERY DAY TAKE ONE CAPSULE BY MOUTH EVERY DAY SOLD: 01/01/2020 [facility] 500 mg 10/11/2019 12:00:00 AM EDT tablet extended release 24 hr 180 TAKE ONE TABLET BY MOUTH TWICE A DAY TAKE ONE TABLET BY MOUTH TWICE A DAY SOLD: 01/11/2020 [facility] 500 mg 10/11/2019 12:00:00 AM EDT tablet extended release 24 hr 180 TAKE ONE TABLET BY MOUTH TWICE A DAY TAKE ONE TABLET BY MOUTH TWICE A DAY SOLD: 10/12/2019 [facility] 5 mg 08/15/2019 12:00:00 AM EST tablet 90 TAKE ONE TABLET BY MOUTH EVERY DAY TAKE ONE TABLET BY MOUTH EVERY DAY SOLD: 08/16/2019 [facility] dapagliflozin 5 MG Oral Tablet [Farxiga] Farxiga 5 MG Farxig a 5 MG 08/14/2019 12:00:00 AM EST active 1 tablet eCW1 ([facility]) dapagliflozin 5 MG Oral Tablet [Farxiga] Farxiga 5 MG Farxig a 5 MG 08/14/2019 12:00:00 AM EST active 1 tablet eCW1 ([facility]) dapagliflozin 5 MG Oral Tablet [Farxiga] Farxiga 5 MG Farxig a 5 MG 08/14/2019 12:00:00 AM EST active 1 tablet eCW1 ([facility]) canagliflozin 100 MG Oral Tablet [Invokana] Invokana 100 MG Invokana 100 MG 08/07/2019 12:00:00 AM EST active 1 tablet before the first meal of the day eCW1 ([facility]) Metformin hydrochloride 500 MG Oral Tablet Metformin HCL 07/31/2019 12:00:00 AM EST ORAL active [facility] ([facility]) 100 mg 07/26/2019 12:00:00 AM EST tablet 20 TAKE ONE TABLET BY MOUTH TWICE A DAY FOR 10 DAYS TAKE ONE TABLET BY MOUTH TWICE A DAY FOR 10 DAYS SOLD: 08/07/2019 [facility] Invokamet XR 50-500 MG Invokamet XR 50-500 MG 07/13/2019 12:00:[address] active 1 tablet with meal eCW1 ( [facility]) Invokamet XR 50-500 MG Invokamet XR 50-500 MG 07/13/2019 12:00:[address] active 1 tablet with meal eCW1 ( [facility]) 240 mg 07/13/2019 12:00:00 AM EST tablet extended release 180 TAKE ONE TABLET BY MOUTH TWICE A DAY TAKE ONE TABLET BY MOUTH TWICE A DAY SOLD: 04/08/2020 [facility] 240 mg 07/13/2019 12:00:00 AM EST tablet extended release 180 TAKE ONE TABLET BY MOUTH TWICE A DAY TAKE ONE TABLET BY MOUTH TWICE A DAY SOLD: 07/15/2019 [facility] 240 mg 07/13/2019 12:00:00 AM EST tablet extended release 180 TAKE ONE TABLET BY MOUTH TWICE A DAY TAKE ONE TABLET BY MOUTH TWICE A DAY SOLD: 01/08/2020 [facility] Invokamet XR 50-500 MG Invokamet XR 50-500 MG 07/13/2019 12:00:[address] active 1 tablet with meal eCW1 ( [facility]) 240 mg 07/13/2019 12:00:00 AM EST tablet extended release 180 TAKE ONE TABLET BY MOUTH TWICE A DAY TAKE ONE TABLET BY MOUTH TWICE A DAY SOLD: 10/12/2019 [facility] 0.005 % 05/09/2019 12:00:00 AM EST drops 7 INSTILL ONE DROP INTO EACH EYE ONCE DAILY AT BEDTIME DIRECTED INSTILL ONE DROP INTO EACH EYE ONCE PRITI Y AT BEDTIME DIRECTED SOLD: 11/04/2019 [facility] 0.005 % 05/09/2019 12:00:00 AM EST drops 7 INSTILL ONE DROP INTO EACH EYE ONCE DAILY AT BEDTIME DIRECTED INSTILL ONE DROP INTO EACH EYE ONCE PRITI Y AT BEDTIME DIRECTED SOLD: 04/10/2020 [facility] 500 mg 04/07/2019 12:00:00 AM EDT tablet extended release 24 hr 180 TAKE ONE TABLET BY MOUTH TWICE A DAY TAKE ONE TABLET BY MOUTH TWICE A DAY SOLD: 07/17/2019 [facility] 0.5 % 03/30/2019 12:00:00 AM EDT drops 5 INSTILL ONE DROP INTO BOTH EYES EVERY MORNING INSTILL ONE DROP INTO BOTH EYES EVERY MORNING SOLD: 11/06/2019 [facility] 0.5 % 03/30/2019 12:00:00 AM EDT drops 5 INSTILL ONE DROP INTO BOTH EYES EVERY MORNING INSTILL ONE DROP INTO BOTH EYES EVERY MORNING SOLD: 12/21/2019 [facility] 0.5 % 03/30/2019 12:00:00 AM EDT drops 5 INSTILL ONE DROP INTO BOTH EYES EVERY MORNING INSTILL ONE DROP INTO BOTH EYES EVERY MORNING SOLD: 01/28/2020 [facility] 0.5 % 03/30/2019 12:00:00 AM EDT drops 5 INSTILL ONE DROP INTO BOTH EYES EVERY MORNING INSTILL ONE DROP INTO BOTH EYES EVERY MORNING SOLD: 08/22/2019 [facility] 80 mg 02/23/2019 12:00:00 AM EDT tablet 90 TAKE ONE TABLET BY MOUTH EVERY DAY TAKE ONE TABLET BY MOUTH EVERY DAY SOLD: 09/02/2019 [facility] 80 mg 02/23/2019 12:00:00 AM EDT tablet 90 TAKE ONE TABLET BY MOUTH EVERY DAY TAKE ONE TABLET BY MOUTH EVERY DAY SOLD: 11/28/2019 [facility] 20 mg 12/27/2018 12:00:00 AM EDT tablet 90 TAKE ONE TABLET BY MOUTH EVERY DAY TAKE ONE TABLET BY MOUTH EVERY DAY SOLD: 07/15/2019 [facility] 20 mg 12/27/2018 12:00:00 AM EDT tablet 90 TAKE ONE TABLET BY MOUTH EVERY DAY TAKE ONE TABLET BY MOUTH EVERY DAY SOLD: 10/12/2019 [facility] 5 mg 12/27/2018 12:00:00 AM EDT tablet 90 TAKE ONE TABLET BY MOUTH EVERY DAY TAKE ONE TABLET BY MOUTH EVERY DAY SOLD: 10/12/2019 [facility] 5 mg 12/27/2018 12:00:00 AM EDT tablet 90 TAKE ONE TABLET BY MOUTH EVERY DAY TAKE ONE TABLET BY MOUTH EVERY DAY SOLD: 07/15/2019 [facility] Insurance Providers Payer name Policy type / Coverage type Policy ID Covered alliance party ID Covered alliance party's relationship to [place] Policy [place] Plan Information MEDICARE [id number] SP [id number] [facility] [id number] SP [id number] UNITED HEALTHCARE [id number] SP [id number] UNITED HEALTHCARE [id number] SP [id number] UNITED HEALTHCARE O [id number] S [id number] MEDICARE [id number] S [id number] J75 [facility] EMPIRE RUBI DIV [id number] [facility] EMPIR RUBI DIV UNAVAILABLE UNAVAILABLE ANS-Medicare Part B [id number] ANSI-Commercial [id number] [facility] Part B [id number] Self [id number] Medicare Dme Supplies Medigap Part B [id number] Self [id number] [place] Primary [id number] Self [id number] [place] Plan Medigap Part B [id number] Self [id number] Medicare Medigap Part B [id number] Self [id number] Medicare Medicare Primary [id number] Self [id number] [facility] Medigap Part B [id number] Self [id number] Medicare Dme Supplies Medigap Part B [id number] Self [id number] [place] Primary [id number] Self [id number] ANSI-Commercial [id number] ANSI-Medicare Part B [id number] ANSI-Commercial [id number] ANSI-Medicare Part B [id number] ANSI-Medicare Part B [id number] ANSI-Commercial [id number] [facility] Medigap Part B [id number] Self [id number] Medicare Dme Supplies Medigap Part B [id number] Self [id number] [place] Primary [id number] Self [id number] [facility] Medigap Part B [id number] Self [id number] Medicare Dme Supplies Medigap Part B [id number] Self [id number] [place] Primary [id number] Self [id number] [place] [facility] Medigap Part B [id number] Self [id number] Medicare Dme Supplies Medigap Part B [id number] Self [id number] [place] Primary [id number] Self [id number] ANSI-Commercial [id number] ANSI-Medicare Part B [id number] [place] [employer] Medigap Part B [id number] Self [id number] Medicare Dme Supplies Medigap Part B [id number] Self [id number] [place] Primary [id number] Self [id number] [place] Plan-United Health Medigap Part B [id number] Self [id number] Medicare (Part B) Medicare Primary [id number] Self [id number] [place] Plan-United Health Medigap Part B [id number] Self [id number] Medicare (Part B) Medicare Primary [id number] Self [id number] [place] [employer] Medigap Part B [id number] Self [id number] Medicare Dme Supplies Medigap Part B [id number] Self [id number] [place] Primary [id number] Self [id number] [place] [employer] Medigap Part B [id number] Self [id number] Medicare Dme Supplies Medigap Part B [id number] Self [id number] [place] Primary [id number] Self [id number] [place] [employer] Medigap Part B [id number] Self [id number] Medicare Dme Supplies Medigap Part B [id number] Self [id number] [place] Primary [id number] Self [id number] [place] [employer] Medigap Part B [id number] Self [id number] Medicare Dme Supplies Medigap Part B [id number] Self [id number] [place] Primary [id number] Self [id number] BCBS [facility] [id number] SP [id number] ANSI-Commercial [id number] ANSI-Medicare Part B [id number] MEDICARE [id number] SP [id number] A ANSI-Commercial [id number] ANSI-Medicare Part B [id number] ANSI-Medicare Part B [id number] ANSI-Commercial [id number] [facility] ([facility]) O [id number] S [id number] MEDICARE C [id number] S [id number] A ANSI-Medicare Part B [id number] ANSI-Commercial [id number] [place] Plan-United Health Medigap Part B [id number] Self [id number] Medicare (Part B) Medicare Primary [id number] Self [id number] [place] Plan-United Health Medigap Part B [id number] Self [id number] Medicare (Part B) Medicare Primary [id number] Self [id number] [place] [employer] Medigap Part B [id number] Self [id number] [place] Primary [id number] Self [id number] [place] [employer] Medigap Part B [id number] Self [id number] [place] Medicare Primary [id number] Self [id number] [place] Plan-United Health Medigap Part B [id number] Self [id number] Medicare (Part B) Medicare Primary [id number] Self [id number] [place] [employer] Medigap Part B [id number] Self [id number] [place] Medicare Primary [id number] Self [id number] [place] [employer] Medigap Part B [id number] Self [id number] [place] Medicare Primary [id number] Self [id number] [place] [employer] Medigap Part B [id number] Self [id number] [place] Medicare Primary [id number] Self [id number] [place] [employer] Medigap Part B [id number] Self [id number] [place] Medicare Primary [id number] Self [id number] [place] Plan United Health Medigap Part B [id number] Self [id number] Medicare Medicare Primary [id number] Self [id number] United Healthcare [place] Medigap Part B [id number] Self [id number] Medicare [place]l Gov't Servi Medicare Primary [id number] Self [id number] United Healthcare [place] Medigap Part B [id number] Self [id number] Medicare [place] Gov't Servi Medicare Primary [id number] Self [id number] [place] [employer] Medigap Part B [id number] Self [id number] [place] Medicare Primary [id number] Self [id number] [place] Plan-United Health Commercial [id number] Self [id number] United Healthcare [place] Commercial [id number] Self [id number] [place] Plan-United Health Commercial Self [place] Plan United Health Commercial Self United Healthcare [place] Commercial Self [place] United [employer] Health Maintenance Organization (HMO) Self UNITED HEALTHCARE COMM [id number] S [id number] BCBS EMPIRE BC [id number] S [id number] EXCELL[place] BCBS [id number] No [id number] Problems, Conditions, and Diagnoses Code Display Name Description Problem Type Effective Dates Data Source(s) J31.0 57423704 Chronic rhinitis Problem 08/12/2020 12:00:00 AM EST eCW1 ([facility]) 00104290 Essential hypertension Essential hypertension Problem 07/10/2020 12:00:00 AM EST [facility] ([facility] ) M51.36 [id number] Lumbar degenerative disc disease Problem 10/31/2019 12:00:00 AM EDT eCW1 ([facility]) M51.36 [id number] Lumbar degenerative disc disease Problem 10/31/2019 12:00:00 AM EDT eCW1 ([facility]) C44.612 [id number] Basal cell carcinoma (BCC) of right upper extremity Problem 07/26/2019 12:00:00 AM EST eCW1 ([facility]) C44.612 [id number] Basal cell carcinoma (BCC) of right upper extremity Problem 07/26/2019 12:00:00 AM EST eCW1 ([facility]) Surgeries/Procedures Procedure Description Date Indications Data Source(s) MYOCARDIAL SPECT MULTIPLE STUDIES 06/17/2020 12:00:00 AM EST [facility] ([facility]) CV STRS TST XERS&/OR RX CONT ECG PHYS SI&R 06/17/2020 12:00:00 AM EST [facility] ([facility]) ECG ROUTINE ECG W/LEAST 12 LDS W/I&R 06/11/2020 12:00: 00 AM EST [facility] ([facility]) COMPLEX UROFLOMETRY 04/19/2020 12:00:00 AM EDT [facility] ([facility]) RENITA POST-VOIDING RESIDUAL URINE&/BLDR CAP 04/19/2020 12:00:00 AM EDT [facility] ([facility]) ARTHROCENTESIS ASPIR&/INJECTION MAJOR JT/BURSA 12:00:00 AM EDT [facility] ([facility] ) ARTHROCENTESIS ASPIR&/INJECTION MAJOR JT/BURSA 12:00:00 AM EDT [facility] ([facility] ) ARTHROCENTESIS ASPIR&/INJECTION MAJOR JT/BURSA 12:00:00 AM EDT [facility] ([facility]) RADIOLOGIC EXAM KNEE COMPLETE 4/MORE VIEWS 12/22/2019 12:00:00 AM EDT [facility] ([facility]) ARTHROCENTESIS ASPIR&/INJECTION MAJOR JT/BURSA 12:00:00 AM EDT [facility] ([facility]) RADIOLOGIC EXAM KNEE COMPLETE 4/MORE VIEWS 12/22/2019 12:00:00 AM EDT [facility] ([facility]) RADIOLOGIC EXAM KNEE COMPLETE 4/MORE VIEWS 12/22/2019 12:00:00 AM EDT [facility] ([facility]) RADIOLOGIC EXAM KNEE COMPLETE 4/MORE VIEWS 12/22/2019 12:00:00 AM EDT [facility] ([facility]) Office Visit, Est Pt., Level 3 FC 10/31/2019 12:00:00 AM EDT eCW1 ([facility]) Office Visit, Est Pt., Level 3 PC 10/31/2019 12:00:00 AM EDT eCW1 ([facility]) ECG ROUTINE ECG W/LEAST 12 LDS W/I&R 08/01/2019 12:00: 00 AM EST [facility] ([facility]) TANGNTL BX SKIN SINGLE LES 07/21/2019 12:00:00 AM EST eCW1 ([facility]) DESTROY BENIGN/PREMLG LESION 07/21/2019 12:00:00 AM ES T eCW1 ([facility]) Annual wellness visit, includes a person alized prevention plan of service (pps), subsequent visit 07/13/2019 12:00:00 AM EST eCW 1 ([facility]) Results ID Date Data Source [id number] 08/15/2020 11:00:00 AM EST [facility] Name Value Range Interpretation Code Description Data Alicia rce(s) Supporting Document(s) SARS coronavirus 2 RNA Not Detected [facility] [place] This lab was ordered by [facility] and reported by [facility]. ID Date Data Source [id number] 08/12/2020 09:23:00 AM EST [facility] ([facility]) Name Value Range Interpretation Code Description Data Alicia rce(s) Supporting Document(s) Glucose, Fasting 137 mg/dL 70-100 [facility] ([facility]) Blood Urea Nitrogen 20 mg/dL 7-18 [facility] ([facility]) Creatinine For GFR 0.97 mg/dL 0.70-1.30 [facility] ([facility]) Glomerular Filtration Rate Laboratory test result [facility] ([facility]) <content>Units are mL/min/1.73 m2</content>
<content></content>
<content>Chronic Kidney Disease Staging per NKF:</content>
<content></content>
<content>Stage I & II GFR >=60 Normal to Mildly Decreased</content>
<content>Stage III GFR 30- 59 Moderately Decreased</content>
<content>Stage IV GFR 15-29 Severely Decreased</content>
<content>Stage V GFR <15 Very Little GFR Left</content>
<content>ESRD GFR <15 on SUPERVISOR RECLAMATION</content>
<content></content> Sodium Level 141 meq/L 136-145 [facility] ([facility]) Potassium Serum 4.7 meq/L 3.5-5.1 [facility] ([facility]) Chloride Level 106 meq/L 98-107 [facility] ([facility]) Carbon Dioxide Level 27 meq/L 21-32 [facility] ([facility]) Calcium Level 10.0 mg/dL 8.8-10.2 [facility] ([facility]) Anion Gap 8 meq/L 8-16 [facility] ([facility]) Alkaline Phosphatase 67 U/L 45-117 [facility] ([facility]) Ast/Sgot 19 U/L 7-37 [facility] ([facility]) Alt/SGPT 46 U/L 12-78 MED[facility] ([facility]) Total Protein 7.5 GM/DL 6.4-8.2 [facility] ([facility]) Albumin 3.9 GM/DL 3.2-5.2 [facility] ([facility]) Bilirubin,Total 0.2 mg/dL 0.2-1.0 [facility] ([facility]) Albumin/Globulin Ratio 1.1 [facility] ([facility]) ID Date Data Source [id number] 08/12/2020 09:23:00 AM EST MED[facility] ([facility]) Name Value Range Interpretation Code Description Data Alicia rce(s) Supporting Document(s) Erythrocyte sedimentation rate by Westergren method 14 mm/hr 0-20 MED[facility] ([facility]) Part of Anticoagulation Protocol N ID Date Data Source [id number] 08/12/2020 09:23:00 AM EST MED[facility] ([facility]) Name Value Range Interpretation Code Description Data Alicia rce(s) Supporting Document(s) White Blood Count 8.7 10 4.0-10.0 MED[facility] ([facility]) Red Blood Count 5.04 10 4.30-6.10 MED[facility] ([facility]) Hemoglobin 15.4 g/dL 13.5-17.5 [facility] ([facility]) Hematocrit 47.2 % 42.0-52.0 [facility] ([facility]) Mean Corpuscular Volume 93.7 fl 80.0-96.0 M EDENT ([facility]) Mean Corpuscular Hemoglobin 30.6 pg 27.0-33.0 MED[facility] ([facility]) Mean Corpuscular HGB Conc 32.6 g/dL 32.0-36.5 MED[facility] ([facility]) Nucleated Red Blood Cell % 0.0 % 0-0 MED ENT ([facility]) Platelet Count, Automated 174 10 150-450 MED[facility] ([facility]) Red Cell Distribution Width 13.2 % 11.5-14.5 [facility] ([facility]) ID Date Data Source [id number] 08/12/2020 09:23:00 AM EST MED[facility] ([facility]) Name Value Range Interpretation Code Description Data Alicia rce(s) Supporting Document(s) Prothrombin Time 12.7 s 12.5-14.3 MED[facility] ([facility]) Inr 0.93 [facility] THERAPUTIC HUMAN INR VALUES INDICATIONS NORMAL RANGES PROPHYLAXIS/TREATMENT OF: VENOUS THROMBOSIS 2.0-3.0 PULMONARY EMBOLISM 2.0-3.0 PREVENTION OF SYSTEMIC EMBOLISM FROM: TISSUE HEART VALVES 2.0-3.0 ACUTE MYOCARDIAL INFARCTION 2.0-3.0 VALVULAR HEART DISEASE 2.0-3.0 ATRIAL FIBRILLATION 2.0-3.0 MECHANICAL VALVES(HIGH RISK) 2.5-3.5 RECURRENT MYOCARDIAL INFARCTION 2.5-3.5 ID Date Data Source [id number]-[id number] 08/12/2020 12:00:00 AM EST eCW1 ([facility]) Name Value Range Interpretation Code Description Data Alicia rce(s) Supporting Document(s) Prothrombin time (PT) 12.7 12.5-14.3 PROTHROMBIN TI ME eCW1 ([facility]) INR in Platelet poor plasma by Coagulation assay 0.93 INR eCW1 ([facility]) ID Date Data Source ERYTHROCYTE SEDIMENTATION RATE 08/12/2020 12:00:00 AM EST eC W1 ([facility]) Name Value Range Interpretation Code Description Data Alicia rce(s) Supporting Document(s) 14 0-20 ERYTHROCYTE SEDIMENTATION RATE eCW1 ([facility]) ID Date Data Source Comprehensive Metabolic Profile (CMP) 08/12/2020 12:00:00 AM EST eCW1 ([facility]) Name Value Range Interpretation Code Description Data Alicia rce(s) Supporting Document(s) 137 70-100 GLUCOSE, FASTING eCW1 ([facility]) 20 7-18 BLOOD UREA NITROGEN eCW1 ([facility]) 0.97 0.70-1.30 CREATININE FOR GFR eCW1 ([facility]) 141 136-145 SODIUM LEVEL eCW1 ([facility]) 4.7 3.5-5.1 POTASSIUM SERUM eCW1 ([facility]) 106 98-107 CHLORIDE LEVEL eCW1 ([facility]) > 60.0 >49 GLOMERULAR FILTRATION RATE eCW 1 ([facility]) 19 7-37 AST/SGOT eCW1 ([facility]) 46 12-78 ALT/SGPT eCW1 ([facility] hospital) 10.0 8.8-10.2 CALCIUM LEVEL eCW1 ([facility]) 27 21-32 CARBON DIOXIDE LEVEL eCW1 ([facility]) 0.2 0.2-1.0 BILIRUBIN,TOTAL eCW1 ([facility]) 67 45-117 ALKALINE PHOSPHATASE eCW1 ([facility]) 7.5 6.4-8.2 TOTAL PROTEIN eCW1 ([facility]) 1.1 ALBUMIN/GLOBULIN RATIO eCW1 ([facility]) 3.9 3.2-5.2 ALBUMIN eCW1 ([facility]) ID Date Data Source CBC - Complete Blood Count 08/12/2020 12:00:00 AM EST eCW1 ( [facility]) Name Value Range Interpretation Code Description Data Alicia rce(s) Supporting Document(s) 15.4 13.5-17.5 HEMOGLOBIN eCW1 ([facility]) 8.7 4.0-10.0 WHITE BLOOD COUNT eCW1 ([facility]) 5.04 4.30-6.10 RED BLOOD COUNT eCW1 ([facility]) 30.6 27.0-33.0 MEAN CORPUSCULAR HEMOGLOB IN eCW1 ([facility]) 32.6 32.0-36.5 MEAN CORPUSCULAR HGB CONC eCW1 ([facility]) 93.7 80.0-96.0 MEAN CORPUSCULAR VOLUME e CW1 ([facility]) 47.2 42.0-52.0 HEMATOCRIT eCW1 ([facility]) 174 150-450 PLATELET COUNT, AUTOMATED eCW1 ([facility]) 13.2 11.5-14.5 RED CELL DISTRIBUTION WID TH eCW1 ([facility]) ID Date Data Source [id number] 08/09/2020 12:00:00 AM EST [facility] Koko Espinoza MD Patient Name: JOON SANDERS Group Date of : [address] [facility] Date of Exam: 08/09/2020AZALEA Wilson [id number]#: Fax: [phone] EXAM: CHEST (2 VIEW) X-RAYCLINICAL INFORMATION: Pre op.Two views. These images were obtained using digital radiography.Comparison 2018.There is no acute infiltrate or pulmonary edema. The heart is notenlarged. There is mild calcification of the thoracic aorta. Themediastinal silhouette is unchanged. There are degenerative changes of thespine.IMPRESSION:No active pulmonary disease.LUIS EDUARDO Blair/Kinza you for referring ANGELES SANDERS to our office.Electronically Signed - NICCI BETHEA MD 08/09/20 14:55 Name Value Range Interpretation Code Description Data Alicia rce(s) Supporting Document(s) ID Date Data Source [id number] 06/14/2020 11:00:00 AM EST [facility] Name Value Range Interpretation Code Description Data Alicia rce(s) Supporting Document(s) [facility] This lab was ordered by [facility] and reported by [facility]. ID Date Data Source [id number] 06/05/2020 01:34:00 PM EST [facility] ([facility] Name Value Range Interpretation Code Description Data Alicia rce(s) Supporting Document(s) Hemoglobin A1c/Hemoglobin.total in Blood 6.8 [facility] ([facility]) ID Date Data Source [id number] 06/05/2020 01:34:00 PM EST [facility] ([facility] Name Value Range Interpretation Code Description Data Alicia rce(s) Supporting Document(s) Triglycerides 363 [facility] ([facility]) Cholesterol 212 [facility] ([facility]) HDL 52 [facility] Cholesterol in LDL [Mass/volume] in Serum or Plasma by calculation 99 [facility] ([facility]) Chol/HDL Ratio Laboratory test result [facility] ([facility]) ID Date Data Source [id number] 06/05/2020 01:34:00 PM EST [facility] ([facility]) Name Value Range Interpretation Code Description Data Alicia rce(s) Supporting Document(s) Albumin [Mass/volume] in Serum or Plasma 4.4 [facility] ([facility]) Alanine aminotransferase [Enzymatic activity/volume] in Serum or Pl asma 30 [facility] ([facility]) Calcium [Mass/volume] in Serum or Plasma 9.5 [facility] ([facility]) Carbon dioxide, total [Moles/volume] in Serum or Plasma 21 [facility] ([facility]) Chloride [Moles/volume] in Serum or Plasma 106 [facility] ([facility]) Alkaline phosphatase [Enzymatic activity/volume] in Serum or Plasma 6 6 [facility] ([facility]) Protein [Mass/volume] in Serum or Plasma 6.7 [facility] ([facility]) Potassium [Moles/volume] in Serum or Plasma 4.6 [facility] ([facility]) Sodium 4.6 [facility] ([facility]) Aspartate aminotransferase [Enzymatic activity/volume] in Serum or Plasma 17 [facility] ([facility]) Urea nitrogen [Mass/volume] in Serum or Plasma 17 [facility] ([facility]) Glucose 125 [facility] ([facility] Creatinine For GFR 0.83 [facility] ([facility]) ID Date Data Source [id number] 06/05/2020 01:34:00 PM EST [facility] ([facility] Name Value Range Interpretation Code Description Data Alicia rce(s) Supporting Document(s) White Blood Count 8.0 [facility] ([facility]) Red Blood Count 4.8 [facility] ([facility]) Platelets 177 [facility] ([facility] Hemoglobin 15.3 [facility] ([facility]) Hematocrit 44.2 [facility] ([facility]) ID Date Data Source [id number] 04/19/2020 02:53:00 PM EDT [facility] ([facility] Name Value Range Interpretation Code Description Data Alicia rce(s) Supporting Document(s) Protein [Presence] in Urine by Test strip Laboratory test result [facility] ([facility]) Glucose [Presence] in Urine Laboratory test result [facility] ([facility]) Ua Nitrite Laboratory test result ME DENT ([facility]) Blood [Presence] in Urine by Visual Laboratory test result [facility] ([facility]) Ua Leuko Laboratory test result ME DENT ([facility]) Ketones [Presence] in Urine by Test strip Laboratory test result [facility] ([facility]) Clarity of Urine Laboratory test result [facility] ([facility]) Color of Urine Laboratory test result [facility] ([facility]) Bilirubin.total [Presence] in Urine by Test strip Laboratory test res ult [facility] ([facility]) pH of Urine by Test strip 5.0 5.0-7.5 [facility] ([facility]) Ua Specific [place] 1.015 1.003-1.030 MEDE NT ([facility]) Urobilinogen [Mass/volume] in Urine by Test strip 0.2 E.U./dL 0.0-1.0 [facility] ([facility]) ID Date Data Source [id number] 03/25/2020 10:36:00 AM EDT MED[facility] ([facility]) Name Value Range Interpretation Code Description Data Alicia rce(s) Supporting Document(s) Laboratory test finding (navigational concept) Laboratory test result MED[facility] ([facility]) ID Date Data Source [id number] 10/28/2019 11:04:00 AM EDT MED[facility] ([facility]) Name Value Range Interpretation Code Description Data Alicia rce(s) Supporting Document(s) Urine Appearance Laboratory test result MED[facility] ([facility]) Urine Color Laboratory test result MEDEN T ([facility] Urine Specific [place] 1.027 1.002-1.035 M EDENT ([facility] ) pH of Urine 5.0 5.0-9.0 MED[facility] ([facility] ) Urine Protein Laboratory test result MEDENT ([facility]) Urine Glucose (Ua) Laboratory test result MEDENT ([facility]) Urine Ketones Laboratory test result [facility] ([facility] ) Urine Urobilinogen 0.2 0.0-2.0 MED[facility] ([facility] ) Urine Bilirubin Laboratory test result MEDENT ([facility]) Urine Nitrite Laboratory test result [facility] ([facility] ) Urine Leukocyte Esterase Laboratory test result MED[facility] ([facility] ) Urine Blood Laboratory test result MEDEN T ([facility] ) Urine RBC (Auto) 1 0-3 MED[facility] ([facility] Urine WBC (Auto) 3 0-3 [facility] ([facility] Urine Bacteria (Auto) Laboratory test result [facility] ([facility] Urine Squamous Epithelial Cells 0 0-6 [facility] ([facility] Urine Hyaline Casts (Auto) 0 0-1 MED ENT ([facility] ) ID Date Data Source [id number] 10/28/2019 10:27:00 AM EDT [facility] ([facility] Name Value Range Interpretation Code Description Data Alicia rce(s) Supporting Document(s) Creatinine [Mass/volume] in Blood 0.8 0.6-1.3 [facility] ([facility]) ID Date Data Source [id number] 10/28/2019 10:27:00 AM EDT [facility] ([facility] Name Value Range Interpretation Code Description Data Alicia rce(s) Supporting Document(s) Urea nitrogen [Mass/volume] in Blood 25 8-26 [facility] ([facility]) ID Date Data Source [id number] 10/28/2019 10:27:00 AM EDT MED[facility] ([facility]) Name Value Range Interpretation Code Description Data Alicia rce(s) Supporting Document(s) Carbon dioxide, total [Moles/volume] in Blood 21.0 23.0-27.0 MED[facility] ([facility]) ID Date Data Source [id number] 10/28/2019 10:27:00 AM EDT MED[facility] ([facility]) Name Value Range Interpretation Code Description Data Alicia rce(s) Supporting Document(s) Chloride [Moles/volume] in Blood 108 98-109 [facility] ([facility]) ID Date Data Source [id number] 10/28/2019 10:27:00 AM EDT MED[facility] ([facility]) Name Value Range Interpretation Code Description Data Alicia rce(s) Supporting Document(s) Calcium.ionized [Moles/volume] in Blood 4.9 4.5-5.3 [facility] ([facility]) ID Date Data Source [id number] 10/28/2019 10:27:00 AM EDT [facility] ([facility] Name Value Range Interpretation Code Description Data Alicia rce(s) Supporting Document(s) Potassium [Moles/volume] in Blood 4.4 3.5-5.1 [facility] ([facility]) ID Date Data Source [id number] 10/28/2019 10:27:00 AM EDT [facility] ([facility] Name Value Range Interpretation Code Description Data Alicia rce(s) Supporting Document(s) Sodium [Moles/volume] in Blood 138 136-145 [facility] ([facility]) ID Date Data Source [id number] 10/28/2019 10:27:00 AM EDT [facility] ([facility] Name Value Range Interpretation Code Description Data Alicia rce(s) Supporting Document(s) Glucose [Mass/volume] in Blood 155 70-105 [facility] ([facility]) ID Date Data Source [id number] 10/28/2019 10:27:00 AM EDT [facility] ([facility] Name Value Range Interpretation Code Description Data Alicia rce(s) Supporting Document(s) Hematocrit [Volume Fraction] of Blood 48.0 38.0-51.0 [facility] ([facility]) ID Date Data Source [id number] 10/28/2019 10:01:00 AM EDT MED[facility] ([facility]) Name Value Range Interpretation Code Description Data Alicia rce(s) Supporting Document(s) Lipase [Enzymatic activity/volume] in Serum or Plasma 237 73-3 93 [facility] ([facility]) ID Date Data Source [id number] 10/28/2019 10:01:00 AM EDT MED[facility] ([facility]) Name Value Range Interpretation Code Description Data Alicia rce(s) Supporting Document(s) Albumin/Globulin [Mass Ratio] in Serum or Plasma 1.21 1.00-1.93 [facility] ([facility]) ID Date Data Source [id number] 10/28/2019 10:01:00 AM EDT MED[facility] ([facility]) Name Value Range Interpretation Code Description Data Alicia rce(s) Supporting Document(s) Albumin [Mass/volume] in Serum or Plasma 4.0 3.2-5.2 [facility] ([facility]) ID Date Data Source [id number] 10/28/2019 10:01:00 AM EDT MED[facility] ([facility]) Name Value Range Interpretation Code Description Data Alicia rce(s) Supporting Document(s) Protein [Mass/volume] in Serum or Plasma 7.3 6.4-8.2 [facility] ([facility]) ID Date Data Source [id number] 10/28/2019 10:01:00 AM EDT MED[facility] ([facility]) Name Value Range Interpretation Code Description Data Alicia rce(s) Supporting Document(s) Bilirubin.direct [Mass/volume] in Serum or Plasma Laboratory test result 0.0-0.2 [facility] ([facility]) ID Date Data Source [id number] 10/28/2019 10:01:00 AM EDT MED[facility] ([facility]) Name Value Range Interpretation Code Description Data Alicia rce(s) Supporting Document(s) Bilirubin.total [Mass/volume] in Serum or Plasma 0.5 0.2-1.0 [facility] ([facility]) ID Date Data Source [id number] 10/28/2019 10:01:00 AM EDT MED[facility] ([facility]) Name Value Range Interpretation Code Description Data Alicia rce(s) Supporting Document(s) Alkaline phosphatase [Enzymatic activity/volume] in Serum or Bj sma 64 45-117 [facility] ([facility]) ID Date Data Source [id number] 10/28/2019 10:01:00 AM EDT MED[facility] ([facility]) Name Value Range Interpretation Code Description Data Alicia rce(s) Supporting Document(s) Alanine aminotransferase [Enzymatic activity/volume] in Seru m or Plasma 53 12-78 [facility] ([facility]) ID Date Data Source [id number] 10/28/2019 10:01:00 AM EDT MED[facility] ([facility]) Name Value Range Interpretation Code Description Data Alicia rce(s) Supporting Document(s) Aspartate aminotransferase [Enzymatic activity/volume] in Se rum or Plasma 24 7-37 [facility] ([facility]) ID Date Data Source [id number] 10/28/2019 10:00:00 AM EDT MED[facility] ([facility]) Name Value Range Interpretation Code Description Data Alicia rce(s) Supporting Document(s) Hemoglobin [Mass/volume] in Blood 16.2 13.5-17.5 [facility] ([facility]) ID Date Data Source [id number] 10/28/2019 10:00:00 AM EDT [facility] ([facility]) Name Value Range Interpretation Code Description Data Alicia rce(s) Supporting Document(s) Erythrocytes [#/volume] in Blood by Automated count 5.11 4.30-6 .10 [facility] ([facility]) ID Date Data Source [id number] 10/28/2019 10:00:00 AM EDT MED[facility] ([facility]) Name Value Range Interpretation Code Description Data Alicia rce(s) Supporting Document(s) Leukocytes [#/volume] in Blood by Automated count 9.6 4.0-10.0 [facility] ([facility]) ID Date Data Source [id number] 10/28/2019 10:00:00 AM EDT MED[facility] ([facility]) Name Value Range Interpretation Code Description Data Alicia rce(s) Supporting Document(s) Lactic Acid Level 2.0 0.4-2.0 [facility] ([facility]) ID Date Data Source [id number] 10/28/2019 10:00:00 AM EDT MED[facility] ([facility]) Name Value Range Interpretation Code Description Data Alicia rce(s) Supporting Document(s) Basophils [#/volume] in Blood by Automated count 0.0 0.0-0.2 [facility] ([facility]) ID Date Data Source [id number] 10/28/2019 10:00:00 AM EDT MED[facility] ([facility]) Name Value Range Interpretation Code Description Data Alicia rce(s) Supporting Document(s) Eosinophils [#/volume] in Blood by Automated count 0.1 0.0-0.5 [facility] ([facility]) ID Date Data Source [id number] 10/28/2019 10:00:00 AM EDT MED[facility] ([facility]) Name Value Range Interpretation Code Description Data Alicia rce(s) Supporting Document(s) Monocytes [#/volume] in Blood by Automated count 1.0 0.0-0.8 [facility] ([facility]) ID Date Data Source [id number] 10/28/2019 10:00:00 AM EDT MED[facility] ([facility]) Name Value Range Interpretation Code Description Data Alicia rce(s) Supporting Document(s) Lymphocytes [#/volume] in Blood by Automated count 2.6 1.5-5.0 [facility] ([facility]) ID Date Data Source [id number] 10/28/2019 10:00:00 AM EDT MED[facility] ([facility]) Name Value Range Interpretation Code Description Data Alicia rce(s) Supporting Document(s) Neutrophils [#/volume] in Blood by Automated count 5.9 1.5-8.5 [facility] ([facility]) ID Date Data Source [id number] 10/28/2019 10:00:00 AM EDT MED[facility] ([facility]) Name Value Range Interpretation Code Description Data Alicia rce(s) Supporting Document(s) Nucleated erythrocytes/100 leukocytes [Ratio] in Blood by Au tomated count 0.0 0-0 [facility] ([facility]) ID Date Data Source [id number] 10/28/2019 10:00:00 AM EDT MED[facility] ([facility]) Name Value Range Interpretation Code Description Data Alicia rce(s) Supporting Document(s) Immature granulocytes/100 leukocytes in Blood by Automated count 0.5 0-3.0 [facility] ([facility]) ID Date Data Source [id number] 10/28/2019 10:00:00 AM EDT MED[facility] ([facility]) Name Value Range Interpretation Code Description Data Alicia rce(s) Supporting Document(s) Basophils/100 leukocytes in Blood by Automated count 0.4 0.0-1 .0 [facility] ([facility]) ID Date Data Source [id number] 10/28/2019 10:00:00 AM EDT MED[facility] ([facility]) Name Value Range Interpretation Code Description Data Alicia rce(s) Supporting Document(s) Eosinophils/100 leukocytes in Blood by Automated count 0.6 0.0 -3.0 [facility] ([facility]) ID Date Data Source [id number] 10/28/2019 10:00:00 AM EDT MED[facility] ([facility]) Name Value Range Interpretation Code Description Data Alicia rce(s) Supporting Document(s) Monocytes/100 leukocytes in Blood by Automated count 10.2 0.0-5 .0 [facility] ([facility]) ID Date Data Source [id number] 10/28/2019 10:00:00 AM EDT MED[facility] ([facility]) Name Value Range Interpretation Code Description Data Alicia rce(s) Supporting Document(s) Lymphocytes/100 leukocytes in Blood by Automated count 26.5 24. 0-44.0 [facility] ([facility]) ID Date Data Source [id number] 10/28/2019 10:00:00 AM EDT MED[facility] ([facility]) Name Value Range Interpretation Code Description Data Alicia rce(s) Supporting Document(s) Neutrophils [#/volume] in Blood by Automated count 61.8 36.0-66 .0 [facility] ([facility]) ID Date Data Source [id number] 10/28/2019 10:00:00 AM EDT MED[facility] ([facility]) Name Value Range Interpretation Code Description Data Alicia rce(s) Supporting Document(s) Platelets [#/volume] in Blood by Automated count 159 150-450 [facility] ([facility]) ID Date Data Source [id number] 10/28/2019 10:00:00 AM EDT MED[facility] ([facility]) Name Value Range Interpretation Code Description Data Alicia rce(s) Supporting Document(s) Erythrocyte distribution width [Ratio] by Automated count 13.1 11.5-14.5 [facility] ([facility]) ID Date Data Source [id number] 10/28/2019 10:00:00 AM EDT [facility] [facility] Name Value Range Interpretation Code Description Data Alicia rce(s) Supporting Document(s) Erythrocyte mean corpuscular hemoglobin concentration [Mass/volume] by Automated count 34.1 32.0-36.5 [facility] ([facility] ID Date Data Source [id number] 10/28/2019 10:00:00 AM EDT [facility] ([facility]) Name Value Range Interpretation Code Description Data Alicia rce(s) Supporting Document(s) Erythrocyte mean corpuscular hemoglobin [Entitic mass] by Au tomated count 31.7 27.0-33.0 [facility] ([facility]) ID Date Data Source [id number] 10/28/2019 10:00:00 AM EDT [facility] ([facility]) Name Value Range Interpretation Code Description Data Alicia rce(s) Supporting Document(s) Erythrocyte mean corpuscular volume [Entitic volume] by Auto mated count 93.0 80.0-96.0 [facility] ([facility]) ID Date Data Source [id number] 10/28/2019 10:00:00 AM EDT [facility] ([facility]) Name Value Range Interpretation Code Description Data Alicia rce(s) Supporting Document(s) Hematocrit [Volume Fraction] of Blood by Automated count 47.5 4 2.0-52.[facility] ID Date Data Source [id number] 10/11/2019 03:05:00 AM EDT [facility] Name Value Range Interpretation Code Description Data Alicia rce(s) Supporting Document(s) Prostate Specific Ag, Serum 0.3 ng/mL 0.0-4.0 [facility] ECLIA methodology. According to th e [place] [employer], Serum PSA shoulddecrease and remain at undetectable levels after radicalprostatectomy. The AUA defines biochemical recurrence as an initialPSA value 0.2 ng/mL or greater followed by a subsequent confirmatoryPSA value 0.2 ng/mL or greater.Values obtained with different assay methods or kits cannot be usedinterchangeably. Results cannot be interpreted as absolute evidenceof the presence or absence of malignant disease. Reflex Criteria [facility] The percent free PSA is performed on a r eflex basis only when thetotal PSA is between 4.0 and 10.0 ng/mL. ID Date Data Source [id number] 07/13/2019 01:27:00 PM EST [facility] ([facility]) Name Value Range Interpretation Code Description Data Alicia rce(s) Supporting Document(s) Glucose [Mass/volume] in Serum or Plasma 150 70-100 [facility] ([facility]) ID Date Data Source [id number] 07/13/2019 01:27:00 PM EST [facility] ([facility]) Name Value Range Interpretation Code Description Data Alicia rce(s) Supporting Document(s) Urea nitrogen [Mass/volume] in Serum or Plasma 14 7-18 [facility] ([facility]) ID Date Data Source [id number] 07/13/2019 01:27:00 PM EST [facility] ([facility]) Name Value Range Interpretation Code Description Data Alicia rce(s) Supporting Document(s) Creatinine [Mass/volume] in Serum or Plasma 0.77 0.70-1.30 [facility] ([facility]) ID Date Data Source [id number] 07/13/2019 01:27:00 PM EST [facility] ([facility]) Name Value Range Interpretation Code Description Data Alicia rce(s) Supporting Document(s) Glomerular filtration rate/1.73 sq M.pre dicted [Volume Rate/Area] in Serum or Plasma by Creatinine-based formula (MDRD) Laboratory test result [facility] ([facility]) ID Date Data Source [id number] 07/13/2019 01:27:00 PM EST [facility] ([facility]) Name Value Range Interpretation Code Description Data Alicia rce(s) Supporting Document(s) Sodium [Moles/volume] in Serum or Plasma 140 136-145 [facility] ([facility]) ID Date Data Source [id number] 07/13/2019 01:27:00 PM EST [facility] ([facility]) Name Value Range Interpretation Code Description Data Alicia rce(s) Supporting Document(s) Potassium [Moles/volume] in Serum or Plasma 4.7 3.5-5.1 [facility] ([facility]) ID Date Data Source [id number] 07/13/2019 01:27:00 PM EST [facility] ([facility]) Name Value Range Interpretation Code Description Data Alicia rce(s) Supporting Document(s) Chloride [Moles/volume] in Serum or Plasma 107 98-107 [facility] ([facility]) ID Date Data Source [id number] 07/13/2019 01:27:00 PM EST [facility] ([facility]) Name Value Range Interpretation Code Description Data Alicia rce(s) Supporting Document(s) Carbon dioxide, total [Moles/volume] in Serum or Plasma 25 21 -32 [facility] ([facility]) ID Date Data Source [id number] 07/13/2019 01:27:00 PM EST [facility] ([facility]) Name Value Range Interpretation Code Description Data Alicia rce(s) Supporting Document(s) Anion gap 3 in Serum or Plasma 8 8-16 [facility] ([facility]) ID Date Data Source [id number] 07/13/2019 01:27:00 PM EST [facility] ([facility]) Name Value Range Interpretation Code Description Data Alicia rce(s) Supporting Document(s) Calcium [Moles/volume] in Serum or Plasma 9.1 8.8-10.2 [facility] ([facility]) ID Date Data Source [id number] 07/13/2019 01:27:00 PM EST [facility] ([facility]) Name Value Range Interpretation Code Description Data Alicia rce(s) Supporting Document(s) Triglyceride [Mass/volume] in Serum or Plasma 417 [facility] ([facility]) ID Date Data Source [id number] 07/13/2019 01:27:00 PM EST [facility] ([facility]) Name Value Range Interpretation Code Description Data Alicia rce(s) Supporting Document(s) Cholesterol [Mass/volume] in Serum or Plasma 237 [facility] ([facility]) ID Date Data Source [id number] 07/13/2019 01:27:00 PM EST [facility] ([facility]) Name Value Range Interpretation Code Description Data Alicia rce(s) Supporting Document(s) Cholesterol in HDL [Mass/volume] in Serum or Plasma 54 [facility] ([facility]) ID Date Data Source [id number] 07/13/2019 01:27:00 PM EST [facility] ([facility]) Name Value Range Interpretation Code Description Data Alicia rce(s) Supporting Document(s) Cholesterol non HDL [Mass/volume] in Serum or Plasma 183 [facility] ([facility]) ID Date Data Source [id number] 07/13/2019 01:27:00 PM EST [facility] ([facility]) Name Value Range Interpretation Code Description Data Alicia rce(s) Supporting Document(s) Cholesterol.total/Cholesterol in HDL [Mass Ratio] in Serum or Plasm a 4.388 [facility] ([facility]) ID Date Data Source [id number] 07/13/2019 01:27:00 PM EST [facility] ([facility]) Name Value Range Interpretation Code Description Data Alicia rce(s) Supporting Document(s) Hemoglobin A1c/Hemoglobin.total in Blood 7.7 [facility] ([facility]) ID Date Data Source [id number] 07/13/2019 01:27:00 PM EST [facility] ([facility]) Name Value Range Interpretation Code Description Data Alicia rce(s) Supporting Document(s) Glucose mean value [Mass/volume] in Blood Estimated fr om glycated hemoglobin 174 60-110 [facility] ([facility]) ID Date Data Source [id number] 07/13/2019 10:04:00 AM EST [facility] ([facility]) Name Value Range Interpretation Code Description Data Alicia rce(s) Supporting Document(s) Hemoglobin A1c/Hemoglobin.total in Blood 7.7 [facility] ([facility]) ID Date Data Source [id number] 07/13/2019 10:04:00 AM EST [facility] ([facility]) Name Value Range Interpretation Code Description Data Alicia rce(s) Supporting Document(s) Triglycerides 417 [facility] ([facility]) Cholesterol 237 [facility] ([facility]) HDL 54 [facility] Cholesterol in LDL [Mass/volume] in Serum or Plasma by calculation -- [facility] ([facility]) Chol/HDL Ratio 4.388 [facility] ([facility]) ID Date Data Source [id number] 07/13/2019 10:04:00 AM EST [facility] ([facility]) Name Value Range Interpretation Code Description Data Alicia rce(s) Supporting Document(s) Albumin [Mass/volume] in Serum or Plasma 4.2 [facility] ([facility]) Alanine aminotransferase [Enzymatic activity/volume] in Serum or Pl asma 45 [facility] ([facility]) Chloride [Moles/volume] in Serum or Plasma 107 [facility] ([facility]) Calcium [Mass/volume] in Serum or Plasma 9.1 [facility] ([facility]) Carbon dioxide, total [Moles/volume] in Serum or Plasma 25 [facility] ([facility]) Potassium [Moles/volume] in Serum or Plasma 4.7 [facility] ([facility]) Alkaline phosphatase [Enzymatic activity/volume] in Serum or Plasma 6 2 [facility] ([facility]) Protein [Mass/volume] in Serum or Plasma 7.2 [facility] ([facility]) Sodium 140 [facility] ([facility]) Aspartate aminotransferase [Enzymatic activity/volume] in Serum or Plasma 21 [facility] ([facility]) Urea nitrogen [Mass/volume] in Serum or Plasma 14 [facility] ([facility]) Glucose 150 83-110 [facility] ([facility]) Creatinine For GFR 0.77 [facility] ([facility]) ID Date Data Source [id number] PANEL (CARDIAC RISK) 07/13/2019 12:00:00 AM EST eCW1 ( [facility]) Name Value Range Interpretation Code Description Data Alicia rce(s) Supporting Document(s) Cholesterol in LDL [Mass/volume] in Serum or Plasma by calculation 76 <100 LDL CHOLESTEROL eCW1 ([facility]) Triglyceride [Mass/volume] in Serum or Plasma by calculation 417 <150 TRIGLYCERIDES LEVEL eCW1 ([facility]) 183 NON-HDL-C eCW1 ([facility]) 4.388 <5 CHOLESTEROL RISK RATIO eCW1 ([facility]) Cholesterol [Moles/volume] in Serum or Plasma 237 <200 CHOLESTEROL LEVEL eCW1 ([facility]) Cholesterol in HDL [Moles/volume] in Serum or Plasma 54 >40 HDL CHOLESTEROL eCW1 ([facility]) ID Date Data Source [id number] 07/13/2019 12:00:00 AM EST eCW1 ([facility]) Name Value Range Interpretation Code Description Data Alicia rce(s) Supporting Document(s) Hemoglobin A1c/Hemoglobin.total in Blood 7.7 HEMOGLOBIN A1c eCW1 ([facility]) Procedure Social History Code Duration Value Status Description Data Source(s ) Smoking 08/12/2020 12:00:00 AM EST UNK completed eCW1 ([facility]) Smoking 06/13/2020 12:00:00 AM EST UNK completed eCW1 ([facility]) Smoking 06/13/2020 12:00:00 AM EST UNK completed eCW1 ([facility]) Smoking 06/13/2020 12:00:00 AM EST UNK completed eCW1 ([facility]) Smoking 06/13/2020 12:00:00 AM EST UNK completed eCW1 ([facility]) Smoking 06/11/2020 12:00:00 AM EST Patient is a former smoker completed Patient is a former smoker [facility] ([facility]) Smoking 04/05/2020 12:00:00 AM EDT UNK completed eCW1 ([facility]) 10/18/2019 12:00:00 AM EDT Currently Smokes Cigars com pleted Currently Smokes Cigars [facility] ([facility]) Vital Signs ID Date Data Source UNK Name Value Range Interpretation Code Description Data Source(s) Diastolic blood pressure 78 mm[Hg] 78 mm[Hg] eCW1 ([facility]) Systolic blood pressure 137 mm[Hg] 137 mm[Hg] e CW1 ([facility]) Body temperature 97.3 [degF] 97.3 [degF] eCW1 ( [facility]) Respiratory rate 16 /min 16 /min eCW1 ([facility]) Heart rate 78 /min 78 /min eCW1 ([facility]) Body mass index (BMI) [Ratio] 38.95 kg/m2 38.95 kg/m2 eCW1 ([facility]) Body height [in_i] eCW1 ([facility]) Body weight 260 [lb_av] 260 [lb_av] eCW1 ([facility]) Respiratory rate 14 /min 14 /min [facility] ( [facility] Body mass index (BMI) [Ratio] 38.2 kg/m2 38.2 k g/m2 [facility] ([facility] Body weight 259.00 [lb_av] 259.00 [lb_av] MEDEN T ([facility] Body height 69 [in_i] 69 [in_i] [facility] ([facility] 5'9" Body temperature 97.3 [degF] 97.3 [degF] [facility] ([facility] Heart rate 78 /min 78 /min [facility] ([facility] Diastolic blood pressure 80 mm[Hg] 80 mm[Hg] [facility] ([facility]) Systolic blood pressure 132 mm[Hg] 132 mm[Hg] M EDENT ([facility]) Body surface area Derived from formula 2.30 m2 2.30 [facility] Body weight 116.689 kg 116.689 kg [facility] ([facility]) [place] body weight 160 [lb_av] 160 [lb_av] [facility] T ([facility]) Body mass index (BMI) [Ratio] 38.0 kg/m2 38.0 k g/m2 [facility] ([facility]) Body weight 257.25 [lb_av] 257.25 [lb_av] [facility] T ([facility]) Body height 69 [in_i] 69 [in_i] [facility] 5'9" Diastolic blood pressure 84 mm[Hg] 84 mm[Hg] [facility] Systolic blood pressure 188 mm[Hg] 188 mm[Hg] M EDENT ([facility]) Respiratory rate 16 /min 16 /[facility] Body mass index (BMI) [Ratio] 37.5 kg/m2 37.5 k g/m2 [facility] Body weight 250.00 [lb_av] 250.00 [lb_av] MEDEN T ([facility]) Body height 68.5 [in_i] 68.5 [in_i] [facility] ([facility]) 5'8.50" Body temperature 96.9 [degF] 96.9 [degF] [facility] ([facility]) Heart rate 80 /min 80 /[facility] Diastolic blood pressure 84 mm[Hg] 84 mm[Hg] [facility] ([facility]) Systolic blood pressure 132 mm[Hg] 132 mm[Hg] M EDENT ([facility]) Diastolic blood pressure 80 mm[Hg] 80 mm[Hg] eCW1 ([facility]) Systolic blood pressure 146 mm[Hg] 146 mm[Hg] e CW1 ([facility]) Body temperature 97.3 [degF] 97.3 [degF] eCW1 ( [facility]) Respiratory rate 18 /min 18 /min eCW1 ([facility]) Heart rate 75 /min 75 /min eCW1 ([facility]) Body mass index (BMI) [Ratio] 38.80 kg/m2 38.80 kg/m2 eCW1 ([facility]) Body height [in_i] eCW1 ([facility]) Body weight 259 [lb_av] 259 [lb_av] eCW1 ([facility]) Diastolic blood pressure--sitting 78 mm[Hg] 78 mm[Hg] [facility] ([facility]) Ra, large cuff Systolic blood pressure--sitting 130 mm[Hg] 130 mm[Hg] [facility] ([facility]) Ra, large cuff Respiratory rate 16 /min 16 /min [facility] ( [facility]) nonlabored Heart rate 72 /min 72 /min [facility] ([facility]) regular Body mass index (BMI) [Ratio] 36.8 kg/m2 36.8 k g/m2 [facility] ([facility]) Body height 69.5 [in_i] 69.5 [in_i] [facility] ([facility]) 5'9.50" Body weight 253.00 [lb_av] 253.00 [lb_av] [facility] T ([facility]) Heart rate 71 /min 71 /min [facility] Diastolic blood pressure 72 mm[Hg] 72 mm[Hg] [facility] ([facility]) Systolic blood pressure 135 mm[Hg] 135 mm[Hg] M EDENT ([facility]) Body mass index (BMI) [Ratio] 35.6 kg/m2 35.6 k g/m2 [facility] ([facility]) Body weight 112.493 kg 112.493 kg [facility] Body weight 248.00 [lb_av] 248.00 [lb_av] [facility] T ([facility]) Body height 70 [in_i] 70 [in_i] [facility] 5'10" Diastolic blood pressure 74 mm[Hg] 74 mm[Hg] eCW1 ([facility]) Systolic blood pressure 148 mm[Hg] 148 mm[Hg] e CW1 ([facility]) Body temperature 97.3 [degF] 97.3 [degF] eCW1 ( [facility]) Respiratory rate 18 /min 18 /min eCW1 ([facility]) Heart rate 69 /min 69 /min eCW1 ([facility]) Body mass index (BMI) [Ratio] 37.47 kg/m2 37.47 kg/m2 eCW1 ([facility]) Body height [in_i] eCW1 ([facility]) Body weight 250.12 [lb_av] 250.12 [lb_av] eCW1 ([facility]) Body mass index (BMI) [Ratio] 37.1 kg/m2 37.1 k g/m2 [facility] ([facility]) Body weight 244.00 [lb_av] 244.00 [lb_av] MED[facility] T ([facility]) Body height 68 [in_i] 68 [in_i] [facility] ([facility]) 5'8" Body temperature 96.5 [degF] 96.5 [degF] [facility] ([facility]) Body mass index (BMI) [Ratio] 39.3 kg/m2 39.3 k g/m2 [facility] ([facility]) Body weight 266.31 [lb_av] 266.31 [lb_av] MED[facility] T ([facility]) Body height 69 [in_i] 69 [in_i] [facility] ([facility]) 5'9" Diastolic blood pressure 82 mm[Hg] 82 mm[Hg] eCW1 ([facility]) Systolic blood pressure 157 mm[Hg] 157 mm[Hg] e CW1 ([facility]) Body temperature 97.1 [degF] 97.1 [degF] eCW1 ( [facility]) Respiratory rate 18 /min 18 /min eCW1 ([facility]) Heart rate 71 /min 71 /min eCW1 ([facility]) Body mass index (BMI) [Ratio] 39.57 kg/m2 39.57 kg/m2 eCW1 ([facility]) Body height [in_us] eCW1 ([facility]) Body weight Measured 264.12 [lb_av] 264.12 [lb_ av] eCW1 ([facility]) Body mass index (BMI) [Ratio] 39.0 kg/m2 39.0 k g/m2 [facility] ([facility]) Body weight 266.31 [lb_av] 266.31 [lb_av] [facility] T ([facility]) Diastolic blood pressure 84 mm[Hg] 84 mm[Hg] eCW1 ([facility]) Systolic blood pressure 147 mm[Hg] 147 mm[Hg] e CW1 ([facility]) Body temperature 98.4 [degF] 98.4 [degF] eCW1 ( [facility]) Respiratory rate 18 /min 18 /min eCW1 ([facility]) Heart rate 67 /min 67 /min eCW1 ([facility]) Body mass index (BMI) [Ratio] 39.55 kg/m2 39.55 kg/m2 eCW1 ([facility]) Body height [in_us] eCW1 ([facility]) Body weight Measured 264 [lb_av] 264 [lb_av] eC W1 ([facility]) Body mass index (BMI) [Ratio] 37.8 kg/m2 37.8 k g/m2 [facility] ([facility]) Body height 69.5 [in_i] 69.5 [in_i] [facility] ([facility]) 5'9.50" Body weight 260.00 [lb_av] 260.00 [lb_av] MEDEN T ([facility]) Diastolic blood pressure--supine 62 mm[Hg] 62 mm[Hg] [facility] ([facility]) Systolic blood pressure--supine 126 mm[Hg] 126 mm[Hg] [facility] ([facility]) Diastolic blood pressure--sitting 60 mm[Hg] 60 mm[Hg] [facility] ([facility]) Medium cuff, Ra Systolic blood pressure--sitting 114 mm[Hg] 114 mm[Hg] [facility] ([facility]) Medium cuff, Ra Respiratory rate 16 /min 16 /min [facility] ( [facility]) Heart rate 78 /min 78 /min [facility] ([facility]) Body mass index (BMI) [Ratio] 37.8 kg/m2 37.8 k g/m2 [facility] ([facility]) Body height 69.5 [in_i] 69.5 [in_i] [facility] ([facility]) 5'9.50" Body weight 260.00 [lb_av] 260.00 [lb_av] MEDEN T ([facility]) Diastolic blood pressure 84 mm[Hg] 84 mm[Hg] eCW1 ([facility]) Systolic blood pressure 152 mm[Hg] 152 mm[Hg] e CW1 ([facility]) Body temperature 97.5 [degF] 97.5 [degF] eCW1 ( [facility]) Respiratory rate 18 /min 18 /min eCW1 ([facility]) Heart rate 69 /min 69 /min eCW1 ([facility]) Body mass index (BMI) [Ratio] 40.69 kg/m2 40.69 kg/m2 eCW1 ([facility]) Body height [in_us] eCW1 ([facility]) Body weight Measured 271.6 [lb_av] 271.6 [lb_av ] eCW1 ([facility]) Diastolic blood pressure 76 mm[Hg] 76 mm[Hg] eCW1 ([facility]) Systolic blood pressure 133 mm[Hg] 133 mm[Hg] e CW1 ([facility]) Body temperature 97.9 [degF] 97.9 [degF] eCW1 ( [facility]) Respiratory rate 18 /min 18 /min eCW1 ([facility]) Heart rate 70 /min 70 /min eCW1 ([facility]) Body mass index (BMI) [Ratio] 40.51 kg/m2 40.51 kg/m2 eCW1 ([facility]) Body height [in_us] eCW1 ([facility]) Body weight Measured 270.4 [lb_av] 270.4 [lb_av ] eCW1 ([facility]) Patient Treatment Plan of Care Planned Activity Planned Date Details Description Data Source (s) Acetaminophen 325 MG / Hydrocodone Bitartrate 5 MG Ora l Tablet [[place]] 10/31/2019 12:00:00 AM EDT eCW1 ([facility]) Baclofen 20 MG Oral Tablet 10/23/2019 12:00:00 AM EDT eCW1 ([facility]) Naproxen 375 MG Oral Tablet 10/23/2019 12:00:00 AM EDT eCW1 ([facility]) dapagliflozin 5 MG Oral Tablet [Farxiga] 08/14/2019 12:00:00 AM EST eCW1 ([facility]) canagliflozin 100 MG Oral Tablet [Invokana] 08/07/2019 12:00:00 AM EST eCW1 ([facility]) Invokamet XR 50-500 MG 07/13/2019 12:00:00 AM EST eCW1 ([facility]) Invokamet XR 50-500 MG 07/13/2019 12:00:00 AM EST eCW1 ([facility])
[2020-08-20] MEDS ORDERED: propofoL 500 MG/50 ML VIAL As Ordered ONE (08:16)
[2020-08-20] MEDS ORDERED: MIDAZOLAM INJ 2MG/2ML VIAL (J2250 PER 1MG) As Ordered ONE (08:16)
[2020-08-20] MEDS ORDERED: fentaNYL 100 MCG/2 ML INJECTION (J3010) As Ordered ONE (08:16)
[2020-08-20] MEDS ORDERED: ONDANSETRON 4MG/2ML VIAL As Ordered ONE (08:17)
[2020-08-20] MEDS ORDERED: LIDOCAINE 2% 100MG/5ML SDV (FOR ANES.) As Ordered ONE (08:17)
[2020-08-20] MEDS ORDERED: BUPIVACAINE HCL 0.5% 30 ML VIAL XX ONE (09:00)
[2020-08-20] MEDS ORDERED: EPINEPHrine INJ 1 MG/ML 1ML AMP XX ONE (09:00)
[2020-08-20] MEDS ORDERED: TRANEXAMIC ACID 100 MG/ML 10ML VIAL As Ordered ONE (10:15)
[2020-08-20] MEDS ORDERED: BUPIVACAINE HCL 0.25% 10ML VIAL As Ordered ONE (10:16)
[2020-08-20] MEDS ORDERED: BUPIVACAINE LIPOSOME/PF 1.3% 20ML VIAL (13.3MG/ML)(EXPAREL)(C9290 PER1MG) As Ordered ONE (10:16)
[2020-08-20] MEDS ORDERED: EPINEPHrine INJ 1 MG/ML 1ML AMP As Ordered ONE (10:16)
[2020-08-20] MEDS ORDERED: CLINDAMYCIN INJ 900MG/6ML VIAL As Ordered ONE (10:16)
[2020-08-20] MEDS ORDERED: ePHEDrine SULFATE 25 MG/5 ML(5MG/ML) SYRINGE As Ordered ONE (11:20)
[2020-08-20] MEDS ORDERED: propofoL 200 MG/20 ML VIAL As Ordered ONE ×3 (11:40→12:31)
[2020-08-20] MEDS ORDERED: PHENYLephrine 500MCG 5ML (100MCG/ML) SYRINGE As Ordered ONE (11:46)
[2020-08-20] MEDS ORDERED: ONDANSETRON 4MG/2ML VIAL IV PRN ×3 (13:15→15:30)
[2020-08-20] MEDS ORDERED: GLYCOPYRROLATE INJ 0.2 MG/ML 2 ML VIAL As Ordered ONE (13:15)
[2020-08-20] MEDS ORDERED: oxyCODONE 5MG TAB PO PRN ×2 (13:15→15:30)
[2020-08-20] MEDS ORDERED: LR 1,000 ML IV SCH ×2 (13:15→15:30)
--- NOTE | 2020-08-20 13:18 | HPEPDOC ---
[facility] Medical History & Physical Date of Admission Aug 20, 2020 Date of Service: Aug 20, 2020 Attending Physician: Yarely Hansen MD History and Physical MEDICAL H&P HPI: Patient is a 70 y/o M with PMH of HTN, HLD, cardiomyopathy, osteoarthritis of right knee who has had progressively worsening right knee pain, stiffness. According to patient and orthopedic notes, he has failed to improve with conservative management. He had difficulty with weightbearing activities and activities of daily living. On 08/20/20 patient had elective total right knee arthroplasty by Dr. Alcaraz. EBL of procedure was 50 mL. He had a spinal block for anesthesia. Post-op blood pressure was low, total amount of fluid given was 1.5 intraoperatively, 500 mL post op. He was given robinul post op which helped slightly. Aside from some mild dizziness which resolved quickly, patient denies chest pain, n/v/d, fevers, chills, shortness of breath. ROS: Neg except mentioned above MEDICAL HISTORY: Includes: 1. Hypertension. 2. HLD 3. Glaucoma 4. Colon polyps 5. Hx of V Fib 6. BPH 7. JONO 8. Cardiomyopathy SURGICAL HISTORY: Includes: 1. Left ankle ORIF. 2. Right leg venous decompression. 3. Bladder biopsy. 4. Polyps biopsied. 5. Bilateral knee scopes. 6. Bilateral eye surgery. 7. Right ankle replacement. 8. Carpal tunnel release bilaterally. FAMILY HISTORY: Heart disease, hypertension, pancreatic cancer, melanoma, [place], breast cancer. SOCIAL HISTORY: Denies smoking, alcohol or drug use. He is retired. CURRENT MEDICATIONS: Please see below PHYSICAL EXAMINATION: VS: Please see below CONSTITUTIONAL: No acute distress, resting comfortably, AAO x 3 EYES: PERRLA, EOM intact HENT, MOUTH: Normocephalic, atraumatic, moist mucous membranes, NECK: SUPPLE, no JVD, no lymphadenopathy, no carotid bruit CV: Regular rate and rhythm, S1S2 normal, no murmurs/rubs/gallops RESPIRATORY: Clear to auscultation bilaterally, no rales/rhonchi/wheezes GI: BS positive in 4 quadrants, soft, nontender, nondistended, no rebound or guarding, no organomegaly : Deferred MUSCULOSKELETAL: right LE wrapped in JEREMIAH, ROM not tested . No cyanosis, clubbing, swelling, joint deformity, extremity edema INTEGUMENTARY: Intact, no rashes, no lesions, no erythema NEUROLOGIC:Decreased sensation to fine and dull touch in the b/l lower ext, Cranial Nerves II-XII are intact, no focal deficits PSYCHIATRIC: Mood and affect are normal LABORATORY DATA: Please see below IMAGING: Post-op right knee XR ASSESSMENT: 70 y/o M with PMH of cardiomyopathy, HTN, HLD, osteoarthritis of right knee s/p total right knee arthroplasty, POD 0. PLAN: Hypotension likely 2/2 to anesthesia -Hx of HTN, preop was wnl -Improving slightly with fluids -Watching closely in recovery, anesthesia at bedside -Would caution using too much IVFs with history of cardiomyopathy -Holding home CCB, ACEi -Monitor on tele Osteoarthritis of right knee s/p total right knee arthroplasty, POD 0 -Right knee XR post-op satisfactory -Pain control, PT/OT -Ortho primary Decreased sensation to b/l lower ext likely 2/2 to anesthesia -S/p robinul -F/u improvement HLD -Resume home meds DM type II -Holding metformin -ISS, FS AC/HS BPH -C/w home med DVT px -ASA bid DISPOSITION: Will continue to follow closely while inpatient. Vital Signs Vital Signs Date Time Temp Pulse Resp B/P (MAP) Pulse Ox O2 Delivery O2 Flow Rate FiO2 08/20/20 10:17 61 16 103/58 (73) 98 Nasal Cannula 2 08/20/20 07:04 96.9 Laboratory Data Labs 24H Laboratory Tests 2 08/20/20 07:56: Bedside Glucose (Misc Panel) 162H Home Medications Scheduled Atorvastatin Calcium (Atorvastatin Calcium) 80 Mg Tablet, 1 TAB PO QHS Cholecalciferol (Vitamin D3) (Vitamin D3) 1,000 Unit Tablet, 5,000 UNITS PO DAILY Finasteride (Finasteride) 5 Mg Tablet, 1 TAB PO QAM Latanoprost/Pf (Latanoprost 0.005% Eye Drop) 7.5 Ml Drops, 1 DROP OU QHS Lisinopril (Lisinopril) 20 Mg Tablet, 20 MG PO DAILY Metformin HCl (Metformin HCl ER) 500 Mg Tab.er.24h, 1 TAB PO BID Timolol Maleate (Timolol Maleate) 0.5% 5ML Drops, 1 DROP OU QAM Tolterodine Tartrate (Tolterodine Tartrate ER) 4 Mg Cap.er.24h, 1 TAB PO DAILY Verapamil Hcl (Verapamil ER) 240 Mg Tablet.er, 1 TAB PO BID Allergies Coded Allergies: amoxicillin (Verified Allergy, Unknown, 08/13/20) HIVES A-FIB/CHADSVASC A-FIB History Current/History of A-Fib/PAF?: No Current PO Anticoag Therapy: No Age/Risk Factor Scoring CHADSVASC: CHADSVASC Response (Comments) Value Age Risk Factor Age 65-74 years old 1 Hx of CHF No 0 Hx of HTN Yes 1 Hx of Stroke/TIA/or VTE No 0 Hx of Diabetes No 0 Hx of Vascular Disease No 0 Total 2 Treatment Treatment ordered: Other Other anticoagulant ordered: other Yarely Hansen MD Aug 20, 2020 13:18
[2020-08-20] MEDS ORDERED: PERCOCET 5MG/325MG TAB PO PRN (13:30)
[2020-08-20] MEDS ORDERED: MORPHINE 4 MG/ML 1ML VIAL/SYRINGE (J2270) IV PRN (13:30)
[2020-08-20] MEDS ORDERED: ACETAMINOPHEN TAB 650MG DOSE (2X325MG) PO PRN (13:30)
[2020-08-20] MEDS ORDERED: MORPHINE 2 MG/ML 1ML VIAL (J2270) IV PRN (13:30)
--- NOTE | 2020-08-20 13:33 | REP ---
INDICATION: POST OP IN PACU/ WILL CALL WHEN READY. COMPARISON: None. TECHNIQUE: Two views FINDINGS: A skin olivia anteriorly from a right total knee arthroplasty. There are surgical clips medially from previous vein graft harvest. The lateral exam shows a linear lucency in the distal femur near the femoral component centrally. This appears to be a drilled tunnel. The 3 components of the prosthesis are well aligned in relationship to each other and the lytton bone. There is some soft tissue swelling and an air-fluid level in the joint as would be expected from a media postoperative exam. IMPRESSION: Status post right total knee arthroplasty with the 3 components well aligned in relationship to each other and the lytton bone. <Electronically signed by Jorge Tarango > 08/20/20 [id number]
--- NOTE | 2020-08-20 13:34 | RO ---
OPERATIVE NOTE DATE OF OPERATION: 08/20/2020 PREOPERATIVE DIAGNOSIS: Right knee degenerative valgus, degenerative arthritis. POSTOPERATIVE DIAGNOSIS: Right knee degenerative valgus, degenerative arthritis. PROCEDURE: Right total knee arthroplasty using size 7 cruciate-retaining Attune femoral component with size 7 tibial tray, 6 mm rotating platform polyethylene insert, 35 mm polyethylene button. Prosthesis made by [employer]. It was Attune knee. SURGEON: Katie Espinoza MD MANNEQUIN MAKER: KAUSHAL Dhaliwal ANESTHESIA: Spinal with right femoral nerve block. SPECIMEN: Joint surface. ESTIMATED BLOOD LOSS: 20 mL. DESCRIPTION OF PROCEDURE: Antibiotics were given intravenously preoperatively and then successful right femoral nerve block and then spinal anesthetic was induced. Tourniquet placed on right upper thigh but not inflated. Right lower extremity was carefully prepped and draped in usual sterile fashion and then elevated. After appropriate time out tourniquet was inflated. Longitudinal incision was made from medial parapatellar approach to the knee. The Bovie cautery was used to coagulate the crossing vessels and medial parapatellar arthrotomy was performed. Limited subperiosteal dissection around the proximal and medial tibia performed because of valgus knee. We everted the patella and flexed the knee and placed drill down the center of the femoral canal followed by intramedullary roya and distal femoral cutting jig set at 9 mm resection level at 5 degree valgus for a right knee. The block was pinned into position, distal femoral cut was performed. AP sizing jig measured for size 7 femoral component. 3-degrees of external rotation were dialed in. There did not appear to be excessive wear posteriorly and medial epicondylar axis and [place]crest's line appeared to be appropriate with 3-degrees of external rotation. The block was pinned into position. Anterior, posterior and chamfer cuts performed taking great care to protect the surrounding soft tissues. The sulcus osteotomy jig was applied and sulcus osteotomy performed. We then exposed the proximal tibia and used extramedullary alignment jig to estimate being parallel to the mechanical axis. We referenced off the lateral tibial condyle at 4 mm resection level. We then checked medially and we were about 8. Secondary check with extramedullary roya confirmed that we appeared to be parallel to the mechanical axis. Thus the proximal tibial osteotomy was performed. Laminar religious healer was placed medially and we performed completion lateral meniscectomy of just the remnant that was left and debridement of the posterolateral osteophytes which were just some small osteophytes noted. We then placed laminar religious healer laterally and performed completion medial meniscectomy and debridement of the posteromedial osteophytes. Spacer block at 6 mm was quite symmetric and seemed to fit best with flexion and in extension. We then exposed the proximal tibia and sized for size #7 tibial tray and the tray was pinned into position followed by the reamer and broach and trial 6 mm placed followed by trial femoral component, brought the knee into extension, everted the patella, performed patellar osteotomy, sized for 35 button, lug holes were drilled. The patellofemoral tracking was actually very anatomic despite the valgus deformity of the knee. I did release some of the superficial lateral tissues and removed some synovitis to allow some better patellofemoral tracking. The lug holes for the femur were drilled. Exparel was placed in the subperiosteal tissues around the distal femur and proximal tibia. I prepared the bony surfaces for cementing with copious amount of pulsatile lavage irrigant solution as I did several times throughout the operation. Ms. Colette Sanchez, my restaurant assistant manager, mixed the cement on the back table. She was also critical to the success of this difficult surgery by helping with the appropriate soft tissue manipulation and helped to mix the cement, prepare the patient for surgery, helped to close the wound amongst many other tasks to allow me to perform the operation smoothly, efficiently and safely. We then cemented the tibial tray, removed excess cement and placed polyethylene and then cemented the femoral component, removed excess cement and brought the knee into extension and then cemented the patellar button, held it with a clamp and removed excess cement and held the knee out in extension with clamp in place until the cement hardened. We copiously irrigated out the knee joint as we were waiting for the cement to harden and then placed Tranexamic acid into the knee. Once we were certain that the cement had hardened and there was no protruding cement into the notch, we began closing the arthrotomy with two #1 PDS sutures proximally and one in the medial parapatellar area and then we closed the capsule with running double-armed #1 Stratafix and then released the tourniquet. We irrigated several times and then again in the deep subdermal tissue and closed with interrupted 2-0 PDS sutures, skin was closed with olivia, covered with Optifoam and dry, sterile bulky dressing. He was then transferred to the recovery room in stable condition. There were no intraoperative complications. cc: [facility]
[2020-08-20] MEDS ORDERED: ePHEDrine SULFATE 25 MG/5 ML(5MG/ML) SYRINGE ONE (13:40)
[2020-08-20] MEDS ORDERED: GLYCOPYRROLATE INJ 0.2 MG/ML 2 ML VIAL IV ONE (13:45)
[2020-08-20] MEDS ORDERED: GLUCOSE 4GM CHEW TABLET PO PRN (14:00)
[2020-08-20] MEDS ORDERED: GLUCAGON INJ 1MG VIAL SC PRN (14:00)
[2020-08-20] MEDS ORDERED: DEXTROSE 50% 50 ML SYRINGE IV PRN (14:00)
[2020-08-20 14:45] VITALS: BP 125/94
[2020-08-20 15:15] VITALS: BP 127/91
[2020-08-20] MEDS: PERCOCET 5MG/325MG TAB PO PRN ×2 (16:14→23:07)
[2020-08-20 16:15] VITALS: BP 131/76
[2020-08-20] MEDS: LR 1,000 ML IV SCH ×2 (16:28→23:30)
[2020-08-20] MEDS: HumaLOG INSULIN (NovoLOG) PER UNIT SC SCH ×2 (16:50→20:46)
[2020-08-20 17:11] VITALS: BP 127/72
[2020-08-20 18:15] VITALS: BP 126/70
[2020-08-20] MEDS: VANCOMYCIN HCL 1,000 MG, VIAL MATE ADAPTER 1 EACH in D5W 250 ML IV SCH (21:02)
[2020-08-20 22:00] VITALS: BP 137/89
[2020-08-21] MEDS: PERCOCET 5MG/325MG TAB PO PRN ×3 (05:59→18:17)
[2020-08-21 06:00] VITALS: BP 136/88
[2020-08-21 06:04] LABS: HEMOGLOBIN 13.3 g/dl (13.5-17.5); MEAN CORPUSCULAR HEMOGLOBIN 31.2 pg (27.0-33.0); MEAN CORPUSCULAR HGB CONC 34.1 g/dl (32.0-36.5); MEAN CORPUSCULAR VOLUME 91.5 fl (80.0-96.0); PLATELET COUNT, AUTOMATED 143 10^3/uL (150-450); RED BLOOD COUNT 4.26 10^6/uL (4.30-6.10); WHITE BLOOD COUNT 10.7 10^3/uL (4.0-10.0)
[2020-08-21 06:28] LABS: ALBUMIN 3.4 GM/DL (3.2-5.2); ALT/SGPT 34 U/L (12-78); BILIRUBIN,TOTAL 0.3 MG/DL (0.2-1.0); BLOOD UREA NITROGEN 11 MG/DL (7-18); CALCIUM LEVEL 8.5 MG/DL (8.8-10.2); CARBON DIOXIDE LEVEL 24 MEQ/L (21-32); CHLORIDE LEVEL 106 MEQ/L (98-107); CREATININE FOR GFR 0.84 MG/DL (0.70-1.30); GLOMERULAR FILTRATION RATE > 60.0 (>49); GLUCOSE, FASTING 146 MG/DL (70-100); POTASSIUM SERUM 4.2 MEQ/L (3.5-5.1); SODIUM LEVEL 139 MEQ/L (136-145); TOTAL PROTEIN 6.2 GM/DL (6.4-8.2)
[2020-08-21] MEDS ORDERED: ECOT81TA5 PO (07:08)
[2020-08-21] MEDS ORDERED: PERC5TAB12 PO (07:08)
[2020-08-21] MEDS: ASPIRIN 81 MG ENTERIC TAB PO SCH ×2 (08:49→22:06)
[2020-08-21] MEDS: FINASTERIDE 5 MG TAB PO SCH (08:50)
[2020-08-21] MEDS: MIRALAX *UNIT DOSE* 17GM PACKET PO SCH (08:50)
[2020-08-21] MEDS: VITAMIN D 1,000 INTERNATIONAL UNITS TABLET PO SCH (08:50)
[2020-08-21] MEDS: HumaLOG INSULIN (NovoLOG) PER UNIT SC SCH ×4 (08:56→21:00)
[2020-08-21] MEDS: VANCOMYCIN HCL 1,000 MG, VIAL MATE ADAPTER 1 EACH in D5W 250 ML IV SCH (08:56)
[2020-08-21] MEDS: LR 1,000 ML IV SCH ×2 (09:30→17:39)
[2020-08-21] MEDS: TOLTERODINE TARTRATE 2 MG LA CAP (DETROL LA) PO SCH (09:45)
[2020-08-21] MEDS: TIMOLOL MALEATE 0.5% OPHTH SOLN 5 ML OU SCH (09:46)
[2020-08-21 10:00] VITALS: BP 198/100
[2020-08-21] MEDS ORDERED: MIRALAX *UNIT DOSE* 17GM PACKET PO PRN (10:15)
[2020-08-21] MEDS ORDERED: PERCOCET 5MG/325MG TAB PO PRN (10:15)
[2020-08-21 10:30] VITALS: BP 182/78
[2020-08-21] MEDS: DOCUSATE SODIUM 100MG CAPSULE PO SCH ×2 (10:35→22:05)
[2020-08-21] MEDS: VERAPAMIL 120 MG SR TAB PO SCH ×2 (10:35→22:06)
[2020-08-21 14:00] VITALS: BP 144/75
--- NOTE | 2020-08-21 17:47 | IPNPDOC ---
Date Seen The patient was seen on 08/21/20. Progress Note SUBJECTIVE: Restarted antihypertensives and adjusted pain meds today due to incr BP 190 systolic. Denies SOB, chest pain, fevers, chills. OBJECTIVE: PHYSICAL EXAMINATION: VS: Please see below CONSTITUTIONAL: No acute distress, resting comfortably, AAO x 3 EYES: PERRLA, EOM intact HENT, MOUTH: Normocephalic, atraumatic, moist mucous membranes NECK: SUPPLE, no JVD, no lymphadenopathy, no carotid bruit CV: Regular rate and rhythm, S1S2 normal, no murmurs/rubs/gallops RESPIRATORY: Clear to auscultation bilaterally, no rales/rhonchi/wheezes GI: BS positive in 4 quadrants, soft, nontender, nondistended, no rebound or guarding, no organomegaly : Deferred MUSCULOSKELETAL: right LE wrapped in JEREMIAH, ROM not tested . No cyanosis, clubbing, swelling, joint deformity, extremity edema INTEGUMENTARY: Intact, no rashes, no lesions, no erythema NEUROLOGIC: Cranial Nerves II-XII are intact, no focal deficits PSYCHIATRIC: Mood and affect are normal LABORATORY DATA: Please see below IMAGING: Post-op right knee XR ASSESSMENT: 70 y/o M with PMH of cardiomyopathy, HTN, HLD, osteoarthritis of right knee s/p total right knee arthroplasty, POD 1. PLAN: Osteoarthritis of right knee s/p total right knee arthroplasty, POD 1 -Right knee XR post-op satisfactory -Pain is not controlled on prior regimen, adjusted this AM -PT/OT -Ortho primary HTN -Uncontrolled this AM likely 2/2 to uncontrolled pain -Improved after resuming home meds, adjusting pain regimen HLD -C/w home meds DM type II -Holding metformin -ISS, FS AC/HS BPH -C/w home med DVT px -ASA bid Resolved issues: Hypotension likely 2/2 to anesthesia DISPOSITION: Will continue to follow closely while inpatient. VS, I&O, 24H, Fishbone Vital Signs/I&O Vital Signs Date Time Temp Pulse Resp B/P (MAP) Pulse Ox O2 Delivery O2 Flow Rate FiO2 08/21/20 14:00 98.5 80 18 144/75 (98) 93 Room Air 08/20/20 10:17 2 I&O- Last 24 Hours up to 6 AM 08/21/20 06:00 Intake Total 2960 ml Output Total 2270 ml Balance 690 ml Laboratory Data 24H LABS Laboratory Tests 2 08/20/20 19:50: Bedside Glucose (Misc Panel) 129H 08/21/20 05:44: Nucleated Red Blood Cells % (auto) 0.0, Anion Gap 9, Glomerular Filtration Rate > 60.0, Calcium Level 8.5L, Total Bilirubin 0.3, Aspartate Amino Transf (AST/SGOT) 16, Alanine Aminotransferase (ALT/SGPT) 34, Alkaline Phosphatase 56, Total Protein 6.2L, Albumin 3.4, Albumin/Globulin Ratio 1.2 08/21/20 06:22: Bedside Glucose (Misc Panel) 152H 08/21/20 11:43: Bedside Glucose (Misc Panel) 178H 08/21/20 11:46: Bedside Glucose (Misc Panel) 162H CBC/BMP Laboratory Tests 08/21/20 05:44 Current Medications Current Medications Medications (Trade) Dose Ordered Sig/Quinton Route PRN Reason Start Time Stop Time Status Last Admin Dose Admin Acetaminophen (Tylenol Tab) 650 mg Q4HP PRN PO TEMP AND PAIN LEVEL 1-4 08/20/20 13:30 Aspirin (Ecotrin) 81 mg BID PO 08/21/20 09:00 09/03/20 21:01 08/21/20 08:49 Atorvastatin Calcium (Lipitor) 80 mg QHS PO 08/21/20 21:00 Dextrose (Dextrose 50%) 25 ml ASDIRECTED PRN IV SEE LABEL COMMENTS 08/20/20 14:00 Docusate Sodium (Colace) 100 mg BID PO 08/21/20 09:00 08/21/20 10:35 Fentanyl Citrate (Sublimaze) 25 mcg Q5MP PRN IV PAIN LEVEL 5-10 08/20/20 13:15 08/20/20 14:16 DC Fentanyl Citrate (Sublimaze) 25 mcg Q5MP PRN IV PAIN LEVEL 5-10 08/20/20 15:30 08/20/20 15:16 DC Fentanyl Citrate (Sublimaze) 50 mcg ASDIRECTED PRN IV PAIN 08/20/20 07:01 08/20/20 13:11 DC 08/20/20 09:01 Finasteride (Proscar) 5 mg QAM PO 08/21/20 09:00 08/21/20 08:50 Glucagon (Glucagon) 1 mg ASDIRECTED PRN SC SEE LABEL COMMENTS 08/20/20 14:00 Glucose (Glucose) 16 GM ASDIRECTED PRN PO SEE LABEL COMMENTS 08/20/20 14:00 Insulin Human Lispro (HumaLOG INSULIN) SEE PROTOCOL TABLE AC SC 08/20/20 17:30 Insulin Human Lispro (HumaLOG INSULIN) SEE PROTOCOL TABLE QHS SC 08/20/20 21:00 Lactated Ringer's 1,000 ml @ 100 mls/hr Q10H IV 08/20/20 13:15 08/20/20 14:16 DC Lactated Ringer's 1,000 ml @ 100 mls/hr Q10H IV 08/20/20 13:30 08/20/20 16:28 Lactated Ringer's 1,000 ml @ 100 mls/hr Q10H IV 08/20/20 15:30 08/20/20 15:16 DC Lisinopril (Prinivil) 20 mg DAILY PO 08/21/20 09:00 08/21/20 10:35 Midazolam HCl (Versed) 1 mg ASDIRECTED PRN IV ANXIETY 08/20/20 07:01 08/20/20 13:11 DC 08/20/20 09:01 Morphine Sulfate (Morphine Sulfate Inj) 2 mg Q2H PRN IV PAIN LEVEL 5-7 08/20/20 13:30 08/21/20 06:24 DC 08/20/20 21:02 Morphine Sulfate (Morphine Sulfate Inj) 3 mg Q2H PRN IV PAIN LEVEL 8-10 08/20/20 13:30 08/21/20 06:24 DC Ondansetron HCl (ZOFRAN INJection) 4 mg Q4HP PRN IV NAUSEA OR VOMITING 08/20/20 13:15 08/20/20 14:16 DC Ondansetron HCl (ZOFRAN INJection) 4 mg Q4HP PRN IV NAUSEA OR VOMITING 08/20/20 15:30 08/20/20 15:17 DC Ondansetron HCl (ZOFRAN INJection) 4 mg Q6H PRN IV NAUSEA 08/20/20 13:30 Oxycodone HCl (Roxicodone, Oxyir) 5 mg ASDIRECTED PRN PO PAIN LEVEL 1-4 08/20/20 13:15 08/20/20 14:16 DC Oxycodone HCl (Roxicodone, Oxyir) 5 mg ASDIRECTED PRN PO PAIN LEVEL 1-4 08/20/20 15:30 08/20/20 15:17 DC Oxycodone/ Acetaminophen (Percocet 5mg/ 325mg Tablet) 1 tab Q4HP PRN PO PAIN LEVEL 5-7 08/21/20 10:15 Oxycodone/ Acetaminophen (Percocet 5mg/ 325mg Tablet) 1 tab Q6H PRN PO PAIN LEVEL 5-7 08/20/20 13:30 08/21/20 10:11 DC Oxycodone/ Acetaminophen (Percocet 5mg/ 325mg Tablet) 2 tab Q6H PRN PO PAIN LEVEL 8-10 08/20/20 13:30 08/21/20 12:17 Polyethylene Glycol (Miralax) 1 pkt DAILY PO 08/21/20 09:00 08/21/20 08:50 Polyethylene Glycol (Miralax) 1 pkt DAILYPRN PRN PO CONSTIPATION 08/21/20 10:15 Senna (Senokot) 2 tab QHS PO 08/21/20 21:00 Timolol Maleate (Timoptic 0.5% Ophth Paulina) 1 drop QAM OU 08/21/20 09:00 08/21/20 09:46 Tolterodine Tartrate (Detrol La) 4 mg DAILY PO 08/21/20 09:00 08/21/20 09:45 Vancomycin HCl 1000 mg/IV Miscellaneous Supplies 1 each/ Dextrose 270 ml @ 270 mls/hr Q12H IV 08/20/20 20:00 08/21/20 08:59 DC 08/21/20 08:56 Verapamil HCl (Isoptin-Sr, Calan Sr) 240 mg BID PO 08/21/20 09:00 08/21/20 10:35 Vitamin D (Vitamin D) 5,000 units DAILY PO 08/21/20 09:00 08/21/20 08:50 Allergies Coded Allergies: amoxicillin (Verified Allergy, Unknown, 08/13/20) Yarely Simpson MD Aug 21, 2020 17:47
[2020-08-21 18:00] VITALS: BP 132/99
[2020-08-21] MEDS ORDERED: ATORVASTATIN 20 MG TAB PO SCH (21:00)
[2020-08-21] MEDS ORDERED: SENNA 8.6 MG TAB (SENOKOT) PO SCH (21:00)
[2020-08-21 22:00] VITALS: BP 133/65
[2020-08-22] MEDS: LR 1,000 ML IV SCH (03:44)
[2020-08-22] MEDS: PERCOCET 5MG/325MG TAB PO PRN (06:25)
[2020-08-22] MEDS: HumaLOG INSULIN (NovoLOG) PER UNIT SC SCH ×3 (07:30→11:53)
[2020-08-22] MEDS: TIMOLOL MALEATE 0.5% OPHTH SOLN 5 ML OU SCH (08:49)
[2020-08-22] MEDS: FINASTERIDE 5 MG TAB PO SCH (08:50)
[2020-08-22] MEDS: VERAPAMIL 120 MG SR TAB PO SCH (08:50)
[2020-08-22] MEDS: ASPIRIN 81 MG ENTERIC TAB PO SCH (08:50)
[2020-08-22] MEDS: TOLTERODINE TARTRATE 2 MG LA CAP (DETROL LA) PO SCH (08:50)
[2020-08-22 08:51] VITALS: BP 133/65
[2020-08-22] MEDS: MIRALAX *UNIT DOSE* 17GM PACKET PO SCH (08:51)
[2020-08-22] MEDS: DOCUSATE SODIUM 100MG CAPSULE PO SCH (08:51)
[2020-08-22] MEDS: VITAMIN D 1,000 INTERNATIONAL UNITS TABLET PO SCH (08:51)
== END 2020-08-22 12:30 | disposition home or self-care (01) | DRG 470 ==
LOC: M OR 08-20 06:55 → M MS5PR 08-20 14:50
PROVIDERS: ADMIT Orthopaedic Surgery; ATTEND Orthopaedic Surgery
PROC: 0SRC0J9 Replacement of Right Knee Joint with Synthetic Substitute, Cemented, Open Approach (ICD-10-PCS; principal; 2020-08-20 09:40)
DX: M17.11 Unilateral primary osteoarthritis, right knee (principal); I10 Essential (primary) hypertension; H40.9 Unspecified glaucoma; N40.0 Benign prostatic hyperplasia without lower urinary tract symptoms; R26.89 Other abnormalities of gait and mobility; G47.30 Sleep apnea, unspecified; Z88.0 Allergy status to penicillin; Z88.8 Allergy status to other drugs, medicaments and biological substances; I95.89 Other hypotension; E11.9 Type 2 diabetes mellitus without complications; Z79.84 Long term (current) use of oral hypoglycemic drugs; Z79.899 Other long term (current) drug therapy

== ENCOUNTER → 2020-08-12 | Outpatient (REF) | payer MEDICARE, OTHER ==
[~2020-08-12] MED LIST changes: +ECOT81TA5 PO; +NAPR-849 PO; -NAPR250T4 PO; +PERC5TAB12 PO
[2020-08-12 12:42] LABS: HEMATOCRIT 47.2 % (42.0-52.0); HEMOGLOBIN 15.4 g/dl (13.5-17.5); MEAN CORPUSCULAR HEMOGLOBIN 30.6 pg (27.0-33.0); MEAN CORPUSCULAR HGB CONC 32.6 g/dl (32.0-36.5); MEAN CORPUSCULAR VOLUME 93.7 fl (80.0-96.0); PLATELET COUNT, AUTOMATED 174 10^3/uL (150-450); RED BLOOD COUNT 5.04 10^6/uL (4.30-6.10); WHITE BLOOD COUNT 8.7 10^3/uL (4.0-10.0)
[2020-08-12 13:06] LABS: INR 0.93; PROTHROMBIN TIME 12.7 SECONDS (12.5-14.3)
[2020-08-12 13:14] LABS: ERYTHROCYTE SEDIMENTATION RATE 14 mm/hr (0-20)
[2020-08-12 13:27] LABS: ALBUMIN 3.9 GM/DL (3.2-5.2); ALT/SGPT 46 U/L (12-78); BILIRUBIN,TOTAL 0.2 MG/DL (0.2-1.0); BLOOD UREA NITROGEN 20 MG/DL (7-18); CARBON DIOXIDE LEVEL 27 MEQ/L (21-32); CHLORIDE LEVEL 106 MEQ/L (98-107); CREATININE FOR GFR 0.97 MG/DL (0.70-1.30); GLOMERULAR FILTRATION RATE > 60.0 (>49); GLUCOSE, FASTING 137 MG/DL (70-100); POTASSIUM SERUM 4.7 MEQ/L (3.5-5.1); SODIUM LEVEL 141 MEQ/L (136-145); TOTAL PROTEIN 7.5 GM/DL (6.4-8.2)
== END ==
LOC: M SFHCCLAY 09:05
PROVIDERS: ATTEND Family Medicine
DX: Z01.818 Encounter for other preprocedural examination (principal); M17.0 Bilateral primary osteoarthritis of knee; I11.9 Hypertensive heart disease without heart failure; E11.29 Type 2 diabetes mellitus with other diabetic kidney complication
CPT/HCPCS: 80053; 85027; 85610; 85652; G0463

== ENCOUNTER → 2020-08-15 | Outpatient (CLI) | payer MEDICARE, BC, OTHER ==
[~2020-08-15] MED LIST changes: -ECOT81TA5 PO; -NAPR-849 PO; +NAPR250T4 PO; -PERC5TAB12 PO
== END ==
LOC: M LABSMTC 11:03
PROVIDERS: ATTEND Anesthesiology
DX: Z01.812 Encounter for preprocedural laboratory examination (principal); Z20.822 Contact with and (suspected) exposure to COVID-19

== ENCOUNTER → 2020-11-14 | Outpatient (REF) | payer MEDICARE, OTHER ==
[~2020-11-14] MED LIST changes: +ECOT81TA5 PO; +NAPR-849 PO; -NAPR250T4 PO; +PERC5TAB12 PO
[2020-11-14 17:36] LABS: ALT/SGPT 34 U/L (12-78); BILIRUBIN,TOTAL 0.3 MG/DL (0.2-1.0); BLOOD UREA NITROGEN 16 MG/DL (7-18); CALCIUM LEVEL 9.7 MG/DL (8.8-10.2); CARBON DIOXIDE LEVEL 25 MEQ/L (21-32); CHLORIDE LEVEL 107 MEQ/L (98-107); CREATININE FOR GFR 0.82 MG/DL (0.70-1.30); GLOMERULAR FILTRATION RATE > 60.0 (>49); GLUCOSE, FASTING 123 MG/DL (70-100); SODIUM LEVEL 139 MEQ/L (136-145); TOTAL PROTEIN 7.3 GM/DL (6.4-8.2)
[2020-11-14 17:54] LABS: HEMOGLOBIN A1c 6.4 %
== END ==
LOC: M SFHCCLAY 10:42
PROVIDERS: ATTEND Family Medicine
DX: E11.29 Type 2 diabetes mellitus with other diabetic kidney complication (principal)
CPT/HCPCS: 80053; 83036; G0463

== ENCOUNTER → 2021-03-06 | Outpatient (CLI) | payer MEDICARE, OTHER ==
[~2021-03-06] MED LIST changes: -VERA240T3 PO; +VERA240T71 PO
--- NOTE | 2021-03-06 14:32 | REP ---
INDICATION: PAIN AND SWELLING OF RT WRIST FOR 4 WEEKS; NO INJURY. COMPARISON: None. TECHNIQUE: Four views of the right wrist are provided. FINDINGS: Four views of the right wrist show advanced osteoarthritis at the 1st carpometacarpal articulation with severe joint space narrowing, sclerosis, and osteophyte formation. There is moderate osteoarthritis at the navicular multangular articulation. In addition, there is radio lunate joint space narrowing and sclerosis consistent with radiocarpal osteo arthritis. There is slight widening of the navicular lunate ligament interval consistent with degenerative disruption of this ligament. On lateral radiograph, there is a periarticular soft tissue calcification along the ventral aspect of the radiocarpal joint. There is positive ulnar variance and there is some evidence of sclerosis of the distal ulna and the proximal cortex of the lunate and triquetrum question ulnar abutment. There is distal radioulnar joint spurring. No acute erosive change. IMPRESSION: Advanced osteoarthritic and degenerative changes involving the 1st carpometacarpal joint, the navicular 0 multangular joint, and radiocarpal and ulnocarpal articulations as described above. <Electronically signed by Placido Trevino > 03/06/21 [id number]
== END ==
LOC: M CLY 14:09
PROVIDERS: ATTEND Physician Assistant
DX: M19.031 Primary osteoarthritis, right wrist (principal); M25.431 Effusion, right wrist
CPT/HCPCS: 73110; G0463

== ENCOUNTER → 2021-06-25 | Outpatient (CLI) | payer MEDICARE, BC, OTHER ==
[~2021-06-25] MED LIST changes: +VERA240T64 PO; -VERA240T71 PO
--- NOTE | 2021-06-25 11:19 | REP ---
INDICATION: OCCLUSION/STENOSIS COMPARISON: None. TECHNIQUE: Castro scale and color Doppler evaluation using linear high frequency transducer Findings: FINDINGS: Two-dimensional castro scale and color images demonstrate normal arterial lumen with laminar flow and no appreciable narrowing. Color Doppler interrogation demonstrates normal arterial wave patterns and velocities with no significant spectral broadening. Normal flow direction is appreciated in the bilateral vertebral arteries. ICA peak systolic velocity: Right 43.8 cm/s; Left 57.3 cm/s ICA diastolic velocity: Right 12.6 cm/s; Left 14.6 cm/s ECA peak systolic velocity: Right 109.9 cm/s; Left 64.8 cm/s CCA peak systolic velocity: Right 92.7 cm/s; Left 82.3 cm/s ICA/CCA ratio: Right 0.47 cm/s; Left 0.70 cm/s IMPRESSION: No hemodynamically significant areas of narrowing or stenosis appreciated. Based on set standards narrowing falls within the less than 50% range. <Electronically signed by Corwin Guzman > 06/25/21 111
== END ==
LOC: M RAD 10:16
PROVIDERS: ATTEND Physician Assistant
DX: I65.29 Occlusion and stenosis of unspecified carotid artery (principal)

== ENCOUNTER → 2022-07-22 | Outpatient (CLI) | payer MEDICARE, BC, OTHER ==
[~2022-07-22] MED LIST changes: -D31000TA2 PO; +VITA100093 PO
== END ==
LOC: M LABSMTC 09:09
PROVIDERS: ATTEND Anesthesiology
DX: Z01.812 Encounter for preprocedural laboratory examination (principal); Z20.822 Contact with and (suspected) exposure to COVID-19

== ENCOUNTER 2022-07-27 10:12 | Day surgery (SDC) | payer MEDICARE, BC, OTHER ==
[~2022-07-27] VITALS: Ht 175.3 cm; Wt 115.6 kg
[~2022-07-27 10:12] MED LIST changes: +BSS IRRIG/VANCO(10MG)/TOBRA(5MG)/EPINEPH(1:1000-0.5CC)500ML BAG-ORONLY IR ONE; +CEFUROXIME 1MG/0.1ML INTRACAMERAL INJ As Ordered ONE; +CYCLOPENTOLATE 1% OPHTH SOLN 2ML BTL OS SCH; +LIDOCAINE 1% SDV 5ML VIAL As Ordered ONE; +LIDOCAINE 3.5 % 1ML OPHTH TOPICAL GEL OU ONE; +OFLOXACIN 0.3 % (OCUFLOX) OPTH SOL 5ML OS ONE; +PHENYLEPHRINE 10% OPHTH SOL 5ML OS PRN; +PHENYLEPHRINE 2.5% OPHTH SOL 2ML OS SCH; +TROPICAMIDE 1% OPHTH SOLN 15ML OS SCH
[2022-07-27] MEDS ORDERED: fentaNYL 100 MCG/2 ML INJECTION As Ordered ONE (11:05)
[2022-07-27] MEDS ORDERED: MIDAZOLAM INJ 2MG/2ML VIAL As Ordered ONE (11:05)
[2022-07-27 11:38] VITALS: BP 136/82
== END 2022-07-27 12:03 | disposition home or self-care (01) ==
LOC: M SDC 10:12
PROVIDERS: ATTEND Ophthalmology
DX: H25.12 Age-related nuclear cataract, left eye (principal); H40.812 Glaucoma with increased episcleral venous pressure, left eye; I10 Essential (primary) hypertension; E78.5 Hyperlipidemia, unspecified; E11.9 Type 2 diabetes mellitus without complications; K57.92 Diverticulitis of intestine, part unspecified, without perforation or abscess without bleeding; G43.909 Migraine, unspecified, not intractable, without status migrainosus; F17.200 Nicotine dependence, unspecified, uncomplicated; Z88.0 Allergy status to penicillin; Z79.84 Long term (current) use of oral hypoglycemic drugs; Z79.899 Other long term (current) drug therapy; G47.33 Obstructive sleep apnea (adult) (pediatric); N40.0 Benign prostatic hyperplasia without lower urinary tract symptoms
CPT/HCPCS: 66183; 66987; C1783; J2250; J3010; V2632

== ENCOUNTER → 2022-09-17 | Outpatient (CLI) | payer MEDICARE, BC, OTHER ==
[~2022-09-17] MED LIST changes: -BSS IRRIG/VANCO(10MG)/TOBRA(5MG)/EPINEPH(1:1000-0.5CC)500ML BAG-ORONLY IR ONE; -CEFUROXIME 1MG/0.1ML INTRACAMERAL INJ As Ordered ONE; -CYCLOPENTOLATE 1% OPHTH SOLN 2ML BTL OS SCH; -LIDOCAINE 1% SDV 5ML VIAL As Ordered ONE; -LIDOCAINE 3.5 % 1ML OPHTH TOPICAL GEL OU ONE; -OFLOXACIN 0.3 % (OCUFLOX) OPTH SOL 5ML OS ONE; -PHENYLEPHRINE 10% OPHTH SOL 5ML OS PRN; -PHENYLEPHRINE 2.5% OPHTH SOL 2ML OS SCH; -TROPICAMIDE 1% OPHTH SOLN 15ML OS SCH
== END ==
LOC: M LABSMTC 09:01
PROVIDERS: ATTEND Anesthesiology
DX: Z01.812 Encounter for preprocedural laboratory examination (principal); Z20.822 Contact with and (suspected) exposure to COVID-19

== ENCOUNTER 2022-09-21 11:53 | Day surgery (SDC) | payer MEDICARE, BC, OTHER ==
[~2022-09-21] VITALS: Ht 175.3 cm; Wt 115.1 kg
[~2022-09-21 11:53] MED LIST changes: +BSS IRRIG/VANCO(10MG)/TOBRA(5MG)/EPINEPH(1:1000-0.5CC)500ML BAG-ORONLY IR ONE; +CEFUROXIME 1MG/0.1ML INTRACAMERAL INJ As Ordered ONE; +CYCLOPENTOLATE 1% OPHTH SOLN 2ML BTL OD SCH; +LIDOCAINE 1% SDV 5ML VIAL As Ordered ONE; +LIDOCAINE 3.5 % 1ML OPHTH TOPICAL GEL OU ONE; +MIDAZOLAM INJ 2MG/2ML VIAL As Ordered ONE; +OFLOXACIN 0.3 % (OCUFLOX) OPTH SOL 5ML OD ONE; +PHENYLEPHRINE 10% OPHTH SOL 5ML OD PRN; +PHENYLEPHRINE 2.5% OPHTH SOL 2ML OD SCH; +TROPICAMIDE 1% OPHTH SOLN 15ML OD SCH; +fentaNYL 100 MCG/2 ML INJECTION As Ordered ONE
[2022-09-21 13:35] VITALS: BP 156/81
== END 2022-09-21 14:00 | disposition home or self-care (01) ==
LOC: M SDC 11:53
PROVIDERS: ATTEND Ophthalmology
DX: H25.11 Age-related nuclear cataract, right eye (principal); H40.811 Glaucoma with increased episcleral venous pressure, right eye; E11.29 Type 2 diabetes mellitus with other diabetic kidney complication; I11.9 Hypertensive heart disease without heart failure; E78.5 Hyperlipidemia, unspecified; Z88.1 Allergy status to other antibiotic agents; Z79.899 Other long term (current) drug therapy; Z79.84 Long term (current) use of oral hypoglycemic drugs
CPT/HCPCS: 66991; C1783; J0697; J2250; J3010; V2632

== ENCOUNTER → 2023-01-22 | Outpatient (REF) | payer MEDICARE, OTHER ==
[~2023-01-22] MED LIST changes: -BSS IRRIG/VANCO(10MG)/TOBRA(5MG)/EPINEPH(1:1000-0.5CC)500ML BAG-ORONLY IR ONE; -CEFUROXIME 1MG/0.1ML INTRACAMERAL INJ As Ordered ONE; -CYCLOPENTOLATE 1% OPHTH SOLN 2ML BTL OD SCH; -LIDOCAINE 1% SDV 5ML VIAL As Ordered ONE; -LIDOCAINE 3.5 % 1ML OPHTH TOPICAL GEL OU ONE; -MIDAZOLAM INJ 2MG/2ML VIAL As Ordered ONE; -OFLOXACIN 0.3 % (OCUFLOX) OPTH SOL 5ML OD ONE; -PHENYLEPHRINE 10% OPHTH SOL 5ML OD PRN; -PHENYLEPHRINE 2.5% OPHTH SOL 2ML OD SCH; +TIMO0.5S20 OU; -TIMO0.5S29 OU; -TROPICAMIDE 1% OPHTH SOLN 15ML OD SCH; -fentaNYL 100 MCG/2 ML INJECTION As Ordered ONE
== END ==
LOC: M SFHCCLAY 08:54
PROVIDERS: ATTEND Physician Assistant
DX: L02.01 Cutaneous abscess of face (principal)

== ENCOUNTER → 2023-07-26 | Outpatient (CLI) | payer MEDICARE, BC, OTHER ==
[~2023-07-26] MED LIST changes: +ISOVUE-370 76% 100ML VIAL As Ordered ONE
== END ==
LOC: M RAD 08:46
PROVIDERS: ATTEND Family Medicine
DX: R22.1 Localized swelling, mass and lump, neck (principal)
CPT/HCPCS: 70491; Q9967

== ENCOUNTER → 2023-09-14 | Outpatient (CLI) | payer MEDICARE, BC ==
[~2023-09-14] MED LIST changes: -ISOVUE-370 76% 100ML VIAL As Ordered ONE; +LIDOCAINE 1% MDV 20ML VIAL As Ordered ONE
[2023-09-14 10:00] VITALS: TEMP 97.1
[2023-09-14 11:30] VITALS: BP 164/79; O2SAT 98
== END ==
LOC: M IRPRO 09:41
PROVIDERS: ATTEND Otolaryngology
DX: D11.0 Benign neoplasm of parotid gland (principal)

== ENCOUNTER → 2024-01-31 | Outpatient (REF) | payer MEDICARE, BC ==
[~2024-01-31] MED LIST changes: -LIDOCAINE 1% MDV 20ML VIAL As Ordered ONE
== END ==
LOC: M SFHCCLAY 14:04
PROVIDERS: ATTEND Physician Assistant
DX: R30.0 Dysuria (principal); R09.81 Nasal congestion

== ENCOUNTER → 2024-03-20 | Outpatient (CLI) | payer MEDICARE, BC | LOC: M RAD 07:09 | PROVIDERS: ATTEND Otolaryngology | DX: D11.0 Benign neoplasm of parotid gland (principal) ==

== ENCOUNTER → 2024-09-01 | Outpatient (CLI) | payer MEDICARE, BC | LOC: M RAD 11:35 | PROVIDERS: ATTEND Otolaryngology | DX: D11.0 Benign neoplasm of parotid gland (principal) ==

== ENCOUNTER → 2024-10-19 | Outpatient (CLI) | payer MEDICARE, BC | LOC: M PLARAD 12:17 | PROVIDERS: ATTEND Physician Assistant Surgical | DX: M47.27 Other spondylosis with radiculopathy, lumbosacral region (principal); M51.372 Other intervertebral disc degeneration, lumbosacral region with discogenic back pain and lower extremity pain; M51.46 Schmorl's nodes, lumbar region; M51.44 Schmorl's nodes, thoracic region; M46.06 Spinal enthesopathy, lumbar region; M46.04 Spinal enthesopathy, thoracic region; M51.16 Intervertebral disc disorders with radiculopathy, lumbar region ==

== ENCOUNTER → 2024-11-01 | Outpatient (CLI) | payer MEDICARE, BC | LOC: M RAD 08:50 | PROVIDERS: ATTEND Family Medicine | DX: I70.0 Atherosclerosis of aorta (principal) ==

== ENCOUNTER → 2025-02-22 | Outpatient (REF) | payer MEDICARE, BC | LOC: M SFHCDERM 17:25 | PROVIDERS: ATTEND Nurse Practitioner Family | DX: C44.222 Squamous cell carcinoma of skin of right ear and external auricular canal (principal) ==

== ENCOUNTER → 2025-04-04 | Outpatient (CLI) | payer MEDICARE, BC | LOC: M RAD 11:06 | PROVIDERS: ATTEND Otolaryngology | DX: D11.0 Benign neoplasm of parotid gland (principal) ==

== ENCOUNTER → 2025-05-17 | Outpatient (CLI) | payer MEDICARE, BC ==
[2025-05-17 10:25] VITALS: TEMP 95.6
[2025-05-17 11:25] VITALS: BP 138/85; O2SAT 97
[2025-05-17] MEDS: LIDOCAINE 1% MDV 20 ML VIAL SC ONE (11:55)
== END ==
LOC: M IRPRO 09:58
PROVIDERS: ATTEND Otolaryngology
DX: D11.0 Benign neoplasm of parotid gland (principal)